=== PATIENT | male | born 1945 | race Caucasian/White ===

== ENCOUNTER → 2016-09-15 | Outpatient (CLI) | payer MEDICARE ==
--- NOTE | 2016-09-15 11:06 | CT ---
EXAMINATION TYPE: CT chest wo con DATE OF EXAM: 09/15/2016 9:38 AM COMPARISON: 03/21/2016 HISTORY: 71-year-old male follow-up pulmonary nodule TECHNIQUE: Contiguous axial scanning of the chest without IV contrast. Coronal and sagittal reconstru ctions performed. CT DLP: 362.6 mGycm Automated exposure control for dose reduction was used. FINDINGS: Heart is normal size without pericardial effusion. Coronary vessel calcifications are present and are a marker for coronary artery disease. Ascending aorta remains ectatic at 3.6 cm with mild atherosclerotic arch calcifications and bovine co nfiguration to the aortic arch. No thoracic lymphadenopathy. Mild bilateral gynecomastia again seen. Evaluation of the lungs shows shows a stable 3 mm right upper lobe pulmonary nodule axial image 20 A 5 mm pulmonary nodule right upper lobe axial image 19 not clearly seen previously. Redemonstrated bilobed pulmonary nodule within the left lower lobe, axial image 38 and coronal image 63. This measures 1.1 cm craniocaudal and 0.8 cm wide versus 1.0 x 0.7 cm dating back to 09/21/2015. No consolidation or pleural effusion. Visualized upper abdomen shows postsurgical changes at the GE junction suspected to relate to Nayeli fundoplication which appears new in the interval. Right kidney appears absent. Moderate stool. Bones: Endplate spondylosis especially at the thoracolumbar junction. No osseous destructive process. IMPRESSION: 1. A BILOBED LEFT LOWER LOBE PULMONARY NODULE MEASURES 1.1 X 0.8 CM VERSUS 1.0 X 0.7 CM DATING BACK T O 09/21/2015. THIS IS NOT FELT TO BE A SIGNIFICANT INCREASE IN SIZE. CONTINUED FOLLOW-UP IS RECOMMENDE D TO DEMONSTRATE 2 YEARS OF STABILITY WHICH WOULD SUPPORT A BENIGN ETIOLOGY. 2. A 5 MM RIGHT UPPER LOBE PULMONARY NODULE AXIAL IMAGE 19 NOT SEEN PREVIOUSLY. THIS CAN ALSO BE REAS SESSED ON THE FOLLOW-UP.
== END | disposition home or self-care (01) ==
LOC: RADCTMAIN 09:20
PROVIDERS: ATTEND Internal Medicine Sleep Medicine
DX: R91.1 Solitary pulmonary nodule (principal)
CPT/HCPCS: 71250

== ENCOUNTER → 2017-03-15 | Outpatient (CLI) | payer MEDICARE ==
--- NOTE | 2017-03-15 11:17 | CT ---
EXAMINATION TYPE: CT chest wo con DATE OF EXAM: 03/15/2017 COMPARISON: 09/15/2016 and 05/04/2015 HISTORY: 72-year-old male solitary pulmonary nodule TECHNIQUE: Contiguous axial scanning of the chest without IV contrast. Coronal and sagittal reconstru ctions performed. CT DLP: 489.70 mGycm Automated exposure control for dose reduction was used. FINDINGS: The heart is normal size without pericardial effusion. Coronary vessel calcifications are present in remarkable for coronary artery disease. Ectasia of the ascending aorta at 3.8 cm. There is mild atherosclerotic arch calcification with bovin e configuration to the aortic arch. No thoracic lymphadenopathy by CT size criteria. Trace bilateral gynecomastia is demonstrated. Patient's bilobed left lower lobe pulmonary nodule is measured on coronal series, image 64. It measur es 1.2 x 0.7 cm versus 1.1 x 0.7 cm on 09/15/2016 and 1.0 x 0.7 cm on 05/04/2015. No consolidation or pleural effusion. Some surgical changes at the GE junction likely Naylei fundoplication. Right kidney appears absent. Bones: Endplate spondylosis mid to lower thoracic spine. No osseous destructive process. IMPRESSION: BILOBED LEFT LOWER LOBE PULMONARY NODULE IS RELATIVELY STABLE AT 1.2 CM (CORONAL IMAGE 64). THIS TEE URED 1.1 CM ON 09/15/2016 AND 1.0 CM ON 05/04/2015. GIVEN POSSIBLE MINIMAL INCREASE IN SIZE, AN ADDITIO NAL ONE-YEAR FOLLOW-UP CAN BE PERFORMED.
== END | disposition home or self-care (01) ==
LOC: RADCTMAIN 09:34
PROVIDERS: ATTEND Internal Medicine Sleep Medicine
DX: R91.1 Solitary pulmonary nodule (principal)
CPT/HCPCS: 71250

== ENCOUNTER → 2018-03-19 | Outpatient (CLI) | payer MEDICARE ==
--- NOTE | 2018-03-19 10:24 | CT ---
EXAMINATION TYPE: CT chest wo con DATE OF EXAM: 03/19/2018 COMPARISON: 03/15/2017 HISTORY: Pulmonary nodule CT DLP: 520 mGycm. Automated Exposure Control for Dose Reduction was Utilized. TECHNIQUE: CT scan of the thorax is performed without IV contrast. FINDINGS: LUNGS: There is a stable 1.2 x 0.7 cm left lower lobe pulmonary nodule. No consolidation or pleural e ffusion. No pneumothorax.. There is no pleural effusion or pneumothorax seen. The tracheobronchial tree is patent. Basilar bronchiectasis noted. There also is a stable 3 mm right upper lobe pulmonary nodule on image 19. MEDIASTINUM: Lack of IV contrast is noted to limit evaluation for mediastinal and especially hilar ad enopathy. There are no definitive greater than 1 cm hilar or mediastinal lymph nodes. No cardiomega ly or pericardial effusion is seen. Ectasia of the aorta measuring a maximal dimension of 3.8 cm note d with mild atherosclerotic changes. Suggestion of a bovine configuration to the aortic arch. Coronar y artery calcification noted. OTHER: Degenerative change of the spine noted. Postsurgical change in the region of the GE junction. Right kidney not seen. Small hiatal hernia suspected. IMPRESSION: 1. Stable 1.2 cm left lower lobe pulmonary nodule. 2. Stable 0.3 cm right upper lobe pulmonary nodule.
== END | disposition home or self-care (01) ==
LOC: RADCTMAIN 09:28
PROVIDERS: ATTEND Internal Medicine Sleep Medicine
DX: R91.8 Other nonspecific abnormal finding of lung field (principal)
CPT/HCPCS: 71250

== ENCOUNTER → 2018-03-28 | Outpatient (CLI) | payer MEDICARE ==
[2018-03-28 18:08] LABS: HCT 38.7 % (39.0-53.0); HGB 13.4 gm/dL (13.0-17.5); MCH 33.9 pg (25.0-35.0); MCHC 34.7 g/dL (31.0-37.0); MCV 97.8 fL (80.0-100.0); Mean Platelet Volume 7.1; Platelet Count 212 k/uL (150-450); RBC 3.95 m/uL (4.30-5.90); RDW 13.1 % (11.5-15.5); WBC 9.1 k/uL (3.8-10.6)
[2018-03-28 18:24] LABS: Anion Gap 8 mmol/L; Blood Urea Nitrogen 17 mg/dL (9-20); Carbon Dioxide 27 mmol/L (22-30); Chloride 105 mmol/L (98-107); Potassium 4.6 mmol/L (3.5-5.1); Sodium 140 mmol/L (137-145)
== END | disposition home or self-care (01) ==
LOC: LABPAT 16:27
PROVIDERS: ATTEND Internal Medicine Interventional Cardiology
DX: Z01.812 Encounter for preprocedural laboratory examination (principal); I10 Essential (primary) hypertension; I35.1 Nonrheumatic aortic (valve) insufficiency; R94.39 Abnormal result of other cardiovascular function study
CPT/HCPCS: 36415; 80051; 82565; 84520; 85027

== ENCOUNTER 2018-04-03 09:36 | Emergency (ER) | payer MEDICARE ==
[2018-04-03 09:42] VITALS: RESP 18
[2018-04-03] MEDS ORDERED: SODIUM CHLORIDE 0.9% 500 ML IV ONE (10:04)
--- NOTE | 2018-04-03 10:09 | ED ---
General Adult HPI - General Chief complaint: Altered Mental Status Stated complaint: confusion Time Seen by Provider: 04/03/18 09:40 Source: patient, RN notes reviewed Mode of arrival: wheelchair Limitations: no limitations - History of Present Illness Initial comments: This is a 73-year-old male who presents emergency Department because he woke up this morning and had a diaphoretic episode and then he went to stand up he felt weak and a little off balance at that time. Patient took his blood sugar was 34. Patient told his he didn't feel like he was thinking straight though he was alert and oriented 3 at that time. Patient took a piece of toast with jimmy blood or an [address] On arrival patient's blood sugar was 84. Patient denies any headache patient denies any numbness or weakness. Patient denied any near syncopal episode. Patient denies any chest pain palpitations difficulty breathing or shortness of breath. Patient had abdominal pain patient denies nausea vomiting diarrhea. Patient denied any recent fever chills or cough. Patient states currently he feels almost at his baseline. - Related Data Home Medications Medication Instructions Recorded Confirmed Lisinopril [Zestril] 10 mg PO DAILY 04/24/15 04/03/18 Multivitamin [Men's Multi-Vitamin] 1 tab PO DAILY 04/24/15 04/03/18 Repaglinide [Prandin] 1 mg PO BID 04/24/15 04/03/18 Rosuvastatin Calcium [Crestor] 5 mg PO MOWEFR 04/24/15 04/03/18 Vitamin B Complex 1 cap PO DAILY 04/24/15 04/03/18 metFORMIN HCL 1,000 mg PO BID 04/24/15 04/03/18 Insulin Glargine,Hum.rec.anlog 54 units SQ QAM 12/07/15 04/03/18 [Robin Blanton] Latanoprost Ophth [Xalatan 0.005%] 1 drops RIGHT EYE HS 05/03/16 04/03/18 Aspirin EC [Ecotrin Low Dose] 81 mg PO DAILY 04/03/18 04/03/18 Omeprazole 20 mg PO DAILY 04/03/18 04/03/18 Testosterone [Androgel 1.62% Gel 1 pump TOPICAL HS 10/02/18 10/02/18 Pump] Allergies Allergy/AdvReac Type Severity Reaction Status Date / Time amoxicillin AdvReac Diarrhea Verified 04/03/18 10:07 Review of Systems ROS Statement: Those systems with pertinent positive or pertinent negative responses have been documented in the HPI. ROS Other: All systems not noted in ROS Statement are negative. Past Medical History Past Medical History: Cancer, Diabetes Mellitus, Eye Disorder, GERD/Reflux, Hyperlipidemia, Hypertension Additional Past Medical History / Comment(s): born w/one kidney, back pain after eating, had non-Hodgkin's lymphoma 10 yrs. ago-tx. w/chemo & radiation, reports lung history of bronchitis and 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 to irritating chemicals, PRE GLAUCOMA RT EYE History of Any Multi-Drug Resistant Organisms: None Reported Past Surgical History: Hernia Repair Additional Past Surgical History / Comment(s): lymph node removed,surg for undescended testicles as teen, colonoscopies, GABI FLUNDALPLICATION, EGD Past Anesthesia/Blood Transfusion Reactions: Motion Sickness Past Psychological History: No Psychological Hx Reported Smoking Status: Former smoker Past Alcohol Use History: Occasional Past Drug Use History: None Reported - Past Family History Father Family Medical History: Diabetes Mellitus, Hypertension Additional Family Medical History / Comment(s): abdominal Aneurysm Brother(s) Family Medical History: CVA/TIA Mother Family Medical History: No Reported History General Exam - General Exam Comments Initial Comments: GENERAL: Patient is well-developed and well-nourished. Patient is nontoxic and well- hydrated and is in no acute distress. ENT: Neck is soft and supple. No significant lymphadenopathy is noted. Oropharynx is clear. Moist mucous membranes. Neck has full range of motion without eliciting any pain. EYES: The sclera were anicteric and conjunctiva were pink and moist. Extraocular movements were intact and pupils were equal round and reactive to light. Eyelids were unremarkable. PULMONARY: Unlabored respirations. Good breath sounds bilaterally. No audible rales rhonchi or wheezing was noted. CARDIOVASCULAR: There is a regular rate and rhythm without any murmurs gallops or rubs. ABDOMEN: Soft and nontender with normal bowel sounds. No palpable organomegaly was noted. There is no palpable pulsatile mass. SKIN: Skin is clear with no lesions or rashes and otherwise unremarkable. NEUROLOGIC: Patient is alert and oriented x3. Cranial nerves II through XII are grossly intact. Motor and sensory are also intact. Normal speech, volume and content. Symmetrical smile. MUSCULOSKELETAL: Normal extremities with adequate strength and full range of motion. No lower extremity swelling or edema. No calf tenderness. LYMPHATICS: No significant lymphadenopathy is noted PSYCHIATRIC: Normal psychiatric evaluation. Normal interpersonal interactions appears functionally intact in deals appropriately with others. No signs of depression. No signs of anxiety. Limitations: no limitations Course Vital Signs 04/03/18 04/03/18 04/03/18 09:37 10:06 10:26 Temperature 98.7 F Pulse Rate 69 68 Pulse Rate [ 74 Bluing Oven Tender ] Respiratory 18 18 Rate Blood Pressure 155/73 134/63 O2 Sat by Pulse 98 96 Oximetry 04/03/18 11:49 Temperature Pulse Rate 60 Pulse Rate [ Bluing Oven Tender ] Respiratory 18 Rate Blood Pressure 129/64 O2 Sat by Pulse 97 Oximetry Medical Decision Making - Medical Decision Making EKG shows normal sinus rhythm at 69 bpm CA interval is 204 QRS is 90 QT intervals 434 QTC is 465. Patient's EKG shows no ST segment elevation or depression or T-wave abnormalities noted Patient stated he has increased his diabetes medicine twice in the last 5 weeks last time being a couple of weeks ago. Patient's chest x-ray showed no acute abnormality. Patient ate well in the emergency department and when I went back into the room he was at his baseline according to himself and his . - Lab Data Result diagrams: 04/03/18 10:05 04/03/18 10:05 Lab Results 04/03/18 04/03/18 04/03/18 Range/Units 09:47 10:05 10:05 WBC 8.2 (3.8-10.6) k/uL RBC 4.58 (4.30-5.90) m/uL Hgb 14.9 (13.0-17.5) gm/dL Hct 42.7 (39.0-53.0) % MCV 93.2 (80.0-100.0) fL MCH 32.6 (25.0-35.0) pg MCHC 35.0 (31.0-37.0) g/dL RDW 12.7 (11.5-15.5) % Plt Count 209 (150-450) k/uL Neutrophils % 51 % Lymphocytes % 34 % Monocytes % 8 % Eosinophils % 4 % Basophils % 1 % Neutrophils # 4.2 (1.3-7.7) k/uL Lymphocytes # 2.8 (1.0-4.8) k/uL Monocytes # 0.7 (0-1.0) k/uL Eosinophils # 0.3 (0-0.7) k/uL Basophils # 0.1 (0-0.2) k/uL PT (9.0-12.0) sec INR (<1.2) APTT (22.0-30.0) sec Sodium (137-145) mmol/L Potassium (3.5-5.1) mmol/L Chloride (98-107) mmol/L Carbon Dioxide (22-30) mmol/L Anion Gap mmol/L BUN (9-20) mg/dL Creatinine (0.66-1.25) mg/dL Est GFR (CKD-EPI)AfAm (>60 ml/min/1.73 sqM) Est GFR (CKD-EPI)NonAf (>60 ml/min/1.73 sqM) Glucose (74-99) mg/dL POC Glucose (mg/dL) 84 (75-99) mg/dL POC Glu Boat Washer ID Joyce Colon Calcium (8.4-10.2) mg/dL Total Bilirubin (0.2-1.3) mg/dL AST (17-59) U/L ALT (21-72) U/L Alkaline Phosphatase (38-126) U/L Total Creatine Kinase 69 (55-170) U/L CK-MB (CK-2) 2.4 (0.0-2.4) ng/mL CK-MB (CK-2) Rel Index 3.5 Troponin I <0.012 (0.000-0.034) ng/mL Total Protein (6.3-8.2) g/dL Albumin (3.5-5.0) g/dL Urine Color Urine Appearance (Clear) Urine pH (5.0-8.0) Ur Specific Parsons (1.001-1.035) Urine Protein (Negative) Urine Glucose (UA) (Negative) Urine Ketones (Negative) Urine Blood (Negative) Urine Nitrite (Negative) Urine Bilirubin (Negative) Urine Urobilinogen (<2.0) mg/dL Ur Leukocyte Esterase (Negative) Urine WBC (0-5) /hpf Urine Mucus (None) /hpf 10/02/18 10/02/18 10/02/18 Range/Units 10:05 10:05 10:14 WBC (3.8-10.6) k/uL RBC (4.30-5.90) m/uL Hgb (13.0-17.5) gm/dL Hct (39.0-53.0) % MCV (80.0-100.0) fL MCH (25.0-35.0) pg MCHC (31.0-37.0) g/dL RDW (11.5-15.5) % Plt Count (150-450) k/uL Neutrophils % % Lymphocytes % % Monocytes % % Eosinophils % % Basophils % % Neutrophils # (1.3-7.7) k/uL Lymphocytes # (1.0-4.8) k/uL Monocytes # (0-1.0) k/uL Eosinophils # (0-0.7) k/uL Basophils # (0-0.2) k/uL PT 9.7 (9.0-12.0) sec INR 1.0 (<1.2) APTT 22.1 (22.0-30.0) sec Sodium 143 (137-145) mmol/L Potassium 3.7 (3.5-5.1) mmol/L Chloride 111 H (98-107) mmol/L Carbon Dioxide 22 (22-30) mmol/L Anion Gap 10 mmol/L BUN 20 (9-20) mg/dL Creatinine 0.77 (0.66-1.25) mg/dL Est GFR (CKD-EPI)AfAm >90 (>60 ml/min/1.73 sqM) Est GFR (CKD-EPI)NonAf >90 (>60 ml/min/1.73 sqM) Glucose 68 L (74-99) mg/dL POC Glucose (mg/dL) 82 (75-99) mg/dL POC Glu Boat Washer ID Ivelisse Burrows Calcium 9.8 (8.4-10.2) mg/dL Total Bilirubin 0.7 (0.2-1.3) mg/dL AST 25 (17-59) U/L ALT 31 (21-72) U/L Alkaline Phosphatase 36 L (38-126) U/L Total Creatine Kinase (55-170) U/L CK-MB (CK-2) (0.0-2.4) ng/mL CK-MB (CK-2) Rel Index Troponin I (0.000-0.034) ng/mL Total Protein 7.5 (6.3-8.2) g/dL Albumin 4.6 (3.5-5.0) g/dL Urine Color Urine Appearance (Clear) Urine pH (5.0-8.0) Ur Specific Parsons (1.001-1.035) Urine Protein (Negative) Urine Glucose (UA) (Negative) Urine Ketones (Negative) Urine Blood (Negative) Urine Nitrite (Negative) Urine Bilirubin (Negative) Urine Urobilinogen (<2.0) mg/dL Ur Leukocyte Esterase (Negative) Urine WBC (0-5) /hpf Urine Mucus (None) /hpf 04/03/18 04/03/18 Range/Units 11:28 11:55 WBC (3.8-10.6) k/uL RBC (4.30-5.90) m/uL Hgb (13.0-17.5) gm/dL Hct (39.0-53.0) % MCV (80.0-100.0) fL MCH (25.0-35.0) pg MCHC (31.0-37.0) g/dL RDW (11.5-15.5) % Plt Count (150-450) k/uL Neutrophils % % Lymphocytes % % Monocytes % % Eosinophils % % Basophils % % Neutrophils # (1.3-7.7) k/uL Lymphocytes # (1.0-4.8) k/uL Monocytes # (0-1.0) k/uL Eosinophils # (0-0.7) k/uL Basophils # (0-0.2) k/uL PT (9.0-12.0) sec INR (<1.2) APTT (22.0-30.0) sec Sodium (137-145) mmol/L Potassium (3.5-5.1) mmol/L Chloride (98-107) mmol/L Carbon Dioxide (22-30) mmol/L Anion Gap mmol/L BUN (9-20) mg/dL Creatinine (0.66-1.25) mg/dL Est GFR (CKD-EPI)AfAm (>60 ml/min/1.73 sqM) Est GFR (CKD-EPI)NonAf (>60 ml/min/1.73 sqM) Glucose (74-99) mg/dL POC Glucose (mg/dL) 96 (75-99) mg/dL POC Glu Boat Washer Ivelisse Pillai Calcium (8.4-10.2) mg/dL Total Bilirubin (0.2-1.3) mg/dL AST (17-59) U/L ALT (21-72) U/L Alkaline Phosphatase (38-126) U/L Total Creatine Kinase (55-170) U/L CK-MB (CK-2) (0.0-2.4) ng/mL CK-MB (CK-2) Rel Index Troponin I (0.000-0.034) ng/mL Total Protein (6.3-8.2) g/dL Albumin (3.5-5.0) g/dL Urine Color Yellow Urine Appearance Clear (Clear) Urine pH 5.5 (5.0-8.0) Ur Specific Parsons 1.013 (1.001-1.035) Urine Protein 1+ H (Negative) Urine Glucose (UA) Trace H (Negative) Urine Ketones Negative (Negative) Urine Blood Negative (Negative) Urine Nitrite Negative (Negative) Urine Bilirubin Negative (Negative) Urine Urobilinogen <2.0 (<2.0) mg/dL Ur Leukocyte Esterase Negative (Negative) Urine WBC <1 (0-5) /hpf Urine Mucus Rare H (None) /hpf Disposition Clinical Impression: Hypoglycemia Disposition: HOME SELF-CARE Condition: Good Instructions: Hypoglycemia in a Person with Diabetes (ED) Is patient prescribed a controlled substance at d/c from ED?: No Referrals: Edwardo Feldman DO [Primary Care Provider] - 1-2 days Time of Disposition: 12:46
[2018-04-03 10:13] LABS: Glucose,Whole Blood 84 mg/dL (75-99)
[2018-04-03 10:28] LABS: ALT 31 U/L (21-72); AST 25 U/L (17-59); Albumin 4.6 g/dL (3.5-5.0); Alkaline Phosphatase 36 U/L (38-126); Anion Gap 10 mmol/L; Blood Urea Nitrogen 20 mg/dL (9-20); Calcium 9.8 mg/dL (8.4-10.2); Carbon Dioxide 22 mmol/L (22-30); Chloride 111 mmol/L (98-107); Glucose 68 mg/dL (74-99); Potassium 3.7 mmol/L (3.5-5.1); Sodium 143 mmol/L (137-145); Total Bilirubin 0.7 mg/dL (0.2-1.3); Total Protein 7.5 g/dL (6.3-8.2)
[2018-04-03 10:31] LABS: Glucose,Whole Blood 82 mg/dL (75-99)
[2018-04-03 10:31] LABS: Basophils # (A) 0.1 k/uL (0-0.2); Basophils % (A) 1 %; Eosinophils # (A) 0.3 k/uL (0-0.7); Eosinophils % (A) 4 %; HCT 42.7 % (39.0-53.0); HGB 14.9 gm/dL (13.0-17.5); Lymphocytes # (A) 2.8 k/uL (1.0-4.8); Lymphocytes % (A) 34 %; MCH 32.6 pg (25.0-35.0); MCV 93.2 fL (80.0-100.0); Mean Platelet Volume 6.9; Monocytes # (A) 0.7 k/uL (0-1.0); Monocytes % (A) 8 %; Neutrophils # (A) 4.2 k/uL (1.3-7.7); Neutrophils % (A) 51 %; Platelet Count 209 k/uL (150-450); RBC 4.58 m/uL (4.30-5.90); RDW 12.7 % (11.5-15.5); WBC 8.2 k/uL (3.8-10.6)
[2018-04-03 10:34] LABS: Partial Thromboplastin Time 22.1 sec (22.0-30.0); Prothrombin Time 9.7 sec (9.0-12.0)
--- NOTE | 2018-04-03 10:42 | XR ---
EXAMINATION TYPE: XR chest 2V DATE OF EXAM: 04/03/2018 COMPARISON: 03/19/2018, 12/31/2015 TECHNIQUE: PA and lateral views submitted. HISTORY: Altered mental status FINDINGS: The lungs are clear and there is no pneumothorax, pleural effusion, or focal pneumonia. Atheroscler otic change aorta and biapical pleural thickening. Arthropathy of the shoulders. Hypertrophic and deg enerative change of the spine. IMPRESSION: 1. No acute process.
[2018-04-03 10:43] LABS: Creatine Kinase 69 U/L (55-170)
[2018-04-03 10:55] LABS: Creatine Kinase MB 2.4 ng/mL (0.0-2.4); Troponin I <0.012 ng/mL (0.000-0.034)
[2018-04-03 11:31] LABS: Glucose,Whole Blood 96 mg/dL (75-99)
[2018-04-03 11:51] VITALS: PULSE 60
[2018-04-03 12:31] LABS: Appearance,Urine Clear (Clear); Bilirubin,Urine Negative (Negative); Blood,Urine Negative (Negative); Color,Urine Yellow; Glucose,Urine (UA) Trace (Negative); Ketones,Urine Negative (Negative); Leukocyte Esterase,Urine Negative (Negative); Mucus,Urine Rare /hpf; Nitrite,Urine Negative (Negative); PH, Urine 5.5 (5.0-8.0); Protein,Urine 1+ (Negative); Specific Gravity,Urine 1.013 (1.001-1.035); Urobilinogen,Urine <2.0 mg/dL (<2.0); WBC,Urine <1 /hpf (0-5)
[2018-04-03 13:28] VITALS: BP 137/65; TEMP 97.6
== END 2018-04-03 13:25 | disposition home or self-care (01) ==
LOC: EC 09:36
DX: E11.649 Type 2 diabetes mellitus with hypoglycemia without coma (principal); K21.9 Gastro-esophageal reflux disease without esophagitis; E78.5 Hyperlipidemia, unspecified; I10 Essential (primary) hypertension; H40.9 Unspecified glaucoma; Z83.3 Family history of diabetes mellitus; Z85.72 Personal history of non-Hodgkin lymphomas; Z92.21 Personal history of antineoplastic chemotherapy; Z87.891 Personal history of nicotine dependence; Z79.4 Long term (current) use of insulin; Z79.82 Long term (current) use of aspirin; Z79.890 Hormone replacement therapy; Z79.899 Other long term (current) drug therapy; Z88.0 Allergy status to penicillin
CPT/HCPCS: 36415; 71046; 80053; 81001; 82550; 82553; 84484; 85025; 85610; 85730; 93005; 96360; 99285

== ENCOUNTER 2018-04-11 06:19 | Day surgery (SDC) | payer MEDICARE ==
[2018-04-04 13:33] VITALS: BMI 27.8
[~2018-04-11 06:19] MED LIST: ALPRAZolam 0.25 MG TAB PO PRN; ALPRAZolam 0.5 MG TAB PO PRN; ASPIRIN 325 MG TAB PO STA; ATORVASTATIN 80 MG TAB PO STA; NITROGLYCERIN SL TABS 0.4 MG TAB SUBLINGUAL PRN; SODIUM CHLORIDE 0.9% 1,000 ML in EMPTY BAG 1 BAG IV ONE
[2018-04-11 06:57] LABS: Glucose,Whole Blood 172 mg/dL (75-99)
[2018-04-11] MEDS ORDERED: fentaNYL (PF) 50 MCG/ML 2 ML AMP IV ONE (07:40)
[2018-04-11] MEDS ORDERED: diphenhydrAMINE 50 MG/ML 1 ML VIAL IVP ONE (07:40)
[2018-04-11] MEDS ORDERED: LIDOCAINE 1% INJ 10MG/ML (20 ML MDV) SQ ONE (07:45)
[2018-04-11] MEDS ORDERED: VERAPAMIL SYRINGE (5 MG/10 ML) INTRAARTER ONE (07:46)
[2018-04-11] MEDS ORDERED: HEPARIN SODIUM 1,000 UN/ML (10ML VL) IV ONE (07:55)
[2018-04-11] MEDS ORDERED: IOPAMIDOL-370 50ML BTL INJ ONE (07:57)
[2018-04-11] MEDS ORDERED: IOPAMIDOL-370 125ML BTL INJ ONE (07:57)
[2018-04-11] MEDS ORDERED: RX INFO: IV CONTRAST WAS GIVEN 1 EACH MISC MISCELLANE PRN (08:07)
[2018-04-11] MEDS ORDERED: SODIUM CHLORIDE 0.9% 1,000 ML IV SCH (08:15)
[2018-04-11 08:41] VITALS: RESP 16; TEMP 97.7
[2018-04-11] MEDS ORDERED: NON-FORMULARY DRUG (Vitamin B Complex [Vitamin B Complex] 1 CAP) PO SCH (09:00)
[2018-04-11] MEDS ORDERED: LISINOPRIL 10 MG TAB PO SCH (09:00)
--- NOTE | 2018-04-11 10:28 | CC ---
CARDIAC CATHETERIZATION REPORT Mr. Eastman is a 73-year-old male with known history of hypertension, hyperlipidemia, diabetes mellitus, who has been complaining of progressive dyspnea on exertion. He had an abnormal myocardial perfusion imaging and in view of that, recommendation regarding cardiac catheterization. The procedures, risks and complications were discussed with the patient who is in full understanding and agreement. PROCEDURE: Patient was brought to the laborer brush clearing in a fasting semi-sedated state after receiving fentanyl and Benadryl and achieving moderate conscious sedated state. Using Xylocaine anesthesia and Seldinger technique, a 6-Iranian sheath was introduced in the right radial artery. Selective right and left angiography was performed using 5-Iranian 3.5 bend right and left Nelson catheter, multiple views of the coronary artery including hemiaxial views obtained. Following that, a 5-Iranian tight pigtail catheter was introduced in the left ventricle and a 30 degree LUNDBERG view of the left ventricle was obtained. Following that, catheter and sheath were removed. Hemostasis was obtained with deployment of a TR band. There was no immediate complication. Patient is returned to his room in stable condition. FINDINGS: LEFT MAIN: This is a short-size vessel bifurcating into left circumflex, left anterior descending artery. The left main coronary artery has no evidence of high-grade stenosis. LEFT ANTERIOR DESCENDING ARTERY: This is a large-sized vessel, reaching toward the apex with a wraparound apex segment, tapers down in the distal third, giving rise to a diagonal branch in the proximal segment. The left anterior descending artery has mild intimal disease proximally of 20%. The rest of the vessel has no high-grade stenosis. LEFT CIRCUMFLEX: This is a nondominant large vessel giving rise to two obtuse marginal branches. The first obtuse marginal branch proximally has diffuse intimal disease involving the ostium and extending to the proximal area with area of stenosis up to 60%. The rest of the vessel has intimal disease of mild degree without any evidence of high-grade stenosis. RIGHT CORONARY ARTERY: This is a large dominant vessel, bifurcating distally into PDA, posterolateral segment and branches. The right coronary artery proximally has a 20% plaque. The rest of the vessel has no high-grade stenosis. LEFT VENTRICULOGRAM: Left ventriculogram was performed in 30 degree LUNDBERG view and revealed normal left ventricular size and systolic function, ejection fraction is 60%. There was no significant mitral regurgitation. HEMODYNAMICS: There was no gradient across the aortic valve. The left ventricle end- diastolic pressure left ventricle end-diastolic pressure was at 28-30 mmHg. CONCLUSION: 1. Moderate disease in the first obtuse marginal branch with mild disease in the LAD and the right coronary artery. 2. Normal course size and systolic function. 3. Calcified coronary arteries. 4. Elevated left ventricular end-diastolic pressure. RECOMMENDATION: In view of finding anatomy, I recommend continue medical therapy with aggressive coronary risk modifications being initiated. Those findings and recommendation were discussed with the patient and his family who are in full understanding and agreement. Duration of procedure is 18 minutes. MMODL / IJN: [id number] /
[2018-04-11] MEDS ORDERED: INSULIN DETEMIR 100 UNIT/ML 10 ML VIAL SQ SCH (12:00)
[2018-04-11] MEDS ORDERED: MULTIVITAMINS, THERA 1 EACH TAB PO SCH (12:00)
[2018-04-11 12:23] VITALS: PULSE 56
[2018-04-11 12:24] VITALS: BP 117/64
[2018-04-11 13:16] LABS: Glucose,Whole Blood 238 mg/dL (75-99)
[2018-04-11] MEDS ORDERED: REPAGLINIDE 1 MG TAB PO SCH (17:30)
[2018-04-11] MEDS ORDERED: PUMP TOPICAL SCH (21:00)
[2018-04-11] MEDS ORDERED: TESTOSTERONE TOPICAL SCH (21:00)
[2018-04-12] MEDS ORDERED: ASPIRIN 81 MG PO SCH (09:00)
[2018-04-13] MEDS ORDERED: ATORVASTATIN 10 MG TAB PO SCH (09:00)
== END 2018-04-11 14:55 | disposition home or self-care (01) ==
LOC: CATHCVL 06:19 → 3OBS 08:00 → CATHCVL 14:55
PROVIDERS: ATTEND Internal Medicine Interventional Cardiology
DX: I25.10 Atherosclerotic heart disease of native coronary artery without angina pectoris (principal); I25.84 Coronary atherosclerosis due to calcified coronary lesion; I10 Essential (primary) hypertension; E78.2 Mixed hyperlipidemia; E78.00 Pure hypercholesterolemia, unspecified; E11.9 Type 2 diabetes mellitus without complications; I35.1 Nonrheumatic aortic (valve) insufficiency; Z79.82 Long term (current) use of aspirin; Z79.4 Long term (current) use of insulin; Z79.899 Other long term (current) drug therapy
CPT/HCPCS: 93458; C1894; C1769; J1200; J2001; J3010; J1644; Q9967 ×2

== ENCOUNTER → 2018-04-19 | Outpatient (CLI) | payer MEDICARE ==
[2018-04-19 09:34] LABS: ALT 30 U/L (21-72); AST 23 U/L (17-59); Albumin 4.5 g/dL (3.5-5.0); Alkaline Phosphatase 27 U/L (38-126); Anion Gap 12 mmol/L; Blood Urea Nitrogen 19 mg/dL (9-20); Calcium 9.8 mg/dL (8.4-10.2); Carbon Dioxide 23 mmol/L (22-30); Chloride 106 mmol/L (98-107); Cholesterol 185 mg/dL (<200); Glucose 189 mg/dL (74-99); HDL Cholesterol 46 mg/dL (40-60); LDL Cholesterol,Calculated 113 mg/dL (0-99); Potassium 4.4 mmol/L (3.5-5.1); Sodium 141 mmol/L (137-145); Total Protein 7.2 g/dL (6.3-8.2); Triglycerides 130 mg/dL (<150)
[2018-04-19 17:57] LABS: Hemoglobin A1C 6.8 % (4.0-6.0)
== END | disposition home or self-care (01) ==
LOC: LABWHC1 08:49
PROVIDERS: ATTEND Internal Medicine Endocrinology, Diabetes & Metabolism
DX: E11.65 Type 2 diabetes mellitus with hyperglycemia (principal)
CPT/HCPCS: 36415; 80053; 80061; 82043; 82570; 83036

== ENCOUNTER → 2018-10-04 | Outpatient (CLI) | payer MEDICARE | END | disposition home or self-care (01) | LOC: LABWHC1 16:48 | PROVIDERS: ATTEND Internal Medicine Interventional Cardiology | DX: R06.00 Dyspnea, unspecified (principal) | CPT/HCPCS: 36415; 83880 ==

== ENCOUNTER → 2018-10-24 | Day surgery (SDC) | payer MEDICARE ==
[2018-10-19 11:30] VITALS: BMI 27.8
[~2018-10-24] MED LIST changes: -ALPRAZolam 0.25 MG TAB PO PRN; -ALPRAZolam 0.5 MG TAB PO PRN; -ASPIRIN 325 MG TAB PO STA; -ATORVASTATIN 80 MG TAB PO STA; +INSULIN ASPART (NovoLOG) 100 UNIT/ML VIAL SQ SCH; +INSULIN GLARGINE HUM REC ANLOG 56 UNIT SQ SCH; +LISINOPRIL 10 MG TAB PO SCH; +MIDAZOLAM (PF) 2 MG/2 ML VIAL IVP ONE; -NITROGLYCERIN SL TABS 0.4 MG TAB SUBLINGUAL PRN; +NON-FORMULARY DRUG (Aspirin Ec 81 MG) PO SCH; +NON-FORMULARY DRUG (Cholecalciferol (Vitamin D3) [Vitamin D3] 2,000 UNIT) PO SCH; +NON-FORMULARY DRUG (Metformin Hcl [Metformin Hcl] 1,000 MG) PO SCH; +NON-FORMULARY DRUG (Multivitamin [Men's Multi-Vitamin] 1 TAB) PO SCH; +NON-FORMULARY DRUG (Vitamin B Complex [Vitamin B Complex] 1 CAP) PO SCH; +PUMP TOPICAL SCH; +REPAGLINIDE 1 MG TAB PO SCH; +ROSUVASTATIN CALCIUM 10 MG PO SCH; +SODIUM CHLORIDE 0.9% 1,000 ML IV SCH; -SODIUM CHLORIDE 0.9% 1,000 ML in EMPTY BAG 1 BAG IV ONE; +SODIUM CHLORIDE 0.9% 500 ML 500 ML IV ONE; +TESTOSTERONE TOPICAL SCH; +fentaNYL (PF) 50 MCG/ML 2 ML AMP ONE
[2018-10-24 06:40] VITALS: RESP 18; TEMP 98
[2018-10-24 06:42] LABS: Glucose,Whole Blood 223 mg/dL (75-99)
[2018-10-24] MEDS: BENZOCAINE SPRAY 1 CAN MUCOUS MEM ONE ×2 (07:22→07:28)
[2018-10-24] MEDS: fentaNYL (PF) 50 MCG/ML 2 ML AMP IVP ONE ×2 (07:28→07:29)
--- NOTE | 2018-10-24 08:11 | ECHOT ---
TRANSESOPHAGEAL ECHOCARDIOGRAM INDICATION: Evaluation of aortic valve. PROCEDURE: After explaining the procedure to the patient, its risks and the complications, his blood pressure, heart rate, O2 saturation was monitored. The throat was sprayed with Cetacaine. He received 2 mg intravenous Versed, 50 mcg intravenous fentanyl. The probe was introduced esophagus without difficulty. Images were obtained. Following that, the probe was removed. There was no immediate complication. FINDINGS: Left atrial size is normal. Left ventricular size and systolic function normal. The aortic valve is a tricuspid valve with normal opening. The descending thoracic aorta appears to be normal with the mitral valve, and tricuspid valve as well as pulmonic valve are normal. No pericardial effusion was noted. Contrast bubble study revealed no shunting across the interatrial septum. Doppler pulse wave and color Doppler obtained revealed moderate central aortic regurgitation with mild mitral and tricuspid regurgitation. There was no shunting by color Doppler study. CONCLUSION: 1. Normal left ventricular size and systolic function. 2. Normal appearance left atrial appendage. 3. Normal appearance of the aortic valve with moderate central aortic regurgitation and normal appearance of the ascending aorta. 4. Mild mitral and tricuspid regurgitation. 5. No shunting by color Doppler study. 6. No pericardial effusion. MMODL / IJN: [id number] /
[2018-10-24 09:14] VITALS: BP 123/69; PULSE 56
== END | disposition home or self-care (01) ==
LOC: CATHCVL 06:14
PROVIDERS: ATTEND Internal Medicine Interventional Cardiology
DX: I08.3 Combined rheumatic disorders of mitral, aortic and tricuspid valves (principal); I25.10 Atherosclerotic heart disease of native coronary artery without angina pectoris; E11.9 Type 2 diabetes mellitus without complications; I10 Essential (primary) hypertension; E78.2 Mixed hyperlipidemia; Z82.49 Family history of ischemic heart disease and other diseases of the circulatory system; Z79.82 Long term (current) use of aspirin; Z79.02 Long term (current) use of antithrombotics/antiplatelets; Z79.899 Other long term (current) drug therapy; Z79.4 Long term (current) use of insulin
CPT/HCPCS: 93312; 93320; 93325; J3010; J2250

== ENCOUNTER 2018-11-22 14:08 | Emergency (ER) | payer MEDICARE ==
[2018-11-22 14:12] VITALS: RESP 18
[2018-11-22] MEDS ORDERED: SODIUM CHLORIDE 0.9% 500 ML 500 ML IV STA (14:41)
[2018-11-22 15:12] LABS: Basophils % (A) 0 %; Eosinophils # (A) 0.3 k/uL (0-0.7); Eosinophils % (A) 4 %; HCT 37.4 % (39.0-53.0); HGB 13.6 gm/dL (13.0-17.5); Lymphocytes # (A) 2.8 k/uL (1.0-4.8); Lymphocytes % (A) 33 %; MCH 33.4 pg (25.0-35.0); MCHC 36.4 g/dL (31.0-37.0); MCV 91.5 fL (80.0-100.0); Monocytes # (A) 0.6 k/uL (0-1.0); Monocytes % (A) 7 %; Neutrophils # (A) 4.6 k/uL (1.3-7.7); Neutrophils % (A) 54 %; Platelet Count 214 k/uL (150-450); RBC 4.08 m/uL (4.30-5.90); RDW 12.5 % (11.5-15.5); WBC 8.5 k/uL (3.8-10.6)
[2018-11-22 15:20] LABS: ALT 30 U/L (21-72); AST 27 U/L (17-59); Albumin 4.5 g/dL (3.5-5.0); Alkaline Phosphatase 37 U/L (38-126); Anion Gap 9 mmol/L; Blood Urea Nitrogen 18 mg/dL (9-20); Carbon Dioxide 23 mmol/L (22-30); Chloride 105 mmol/L (98-107); Glucose 179 mg/dL (74-99); Potassium 4.3 mmol/L (3.5-5.1); Sodium 137 mmol/L (137-145); Total Bilirubin 0.6 mg/dL (0.2-1.3); Total Protein 6.9 g/dL (6.3-8.2)
[2018-11-22 15:22] LABS: INR 0.9 (<1.2); Partial Thromboplastin Time 23.9 sec (22.0-30.0)
--- NOTE | 2018-11-22 15:25 | CT ---
EXAMINATION TYPE: CT brain wo con DATE OF EXAM: 11/22/2018 COMPARISON: None INDICATION: Right leg numbness. DLP: 1141.4 mGycm, Automated exposure control for dose reduction was used. CONTRAST: None CT of the brain is performed utilizing 3 mm thick sections through the posterior fossa and 3 mm thick sections through the remaining calvarium. Study is performed within 24 hours of arrival to the hosp [facility]. No abnormal hyperdensity is present to suggest an acute intracranial hemorrhage. No mass lesion is evident. No acute infarcts are evident. Ventricles and sulci are appropriate for the patient age. Paranasal sinuses and mastoid air cells within the [id number] are clear. IMPRESSIONS: 1. No acute intracranial process.
--- NOTE | 2018-11-22 15:28 | CT ---
EXAMINATION TYPE: CT lumbar spine wo con DATE OF EXAM: 11/22/2018 COMPARISON: HISTORY: Right leg numbness. CT DLP: 913.7 mGycm CONTRAST: CT scan of the lumbar is performed , patient injected with mL of . TECHNIQUE: CT of the lumbar spine is performed on a spiral scan at 3 mm thick sections. Reconstructed images are performed in the coronal and sagittal planes. FINDINGS: At T11-T12: There is loss of disc height and vacuum disc phenomenon. Sclerosis of the infer ior endplate of T11. No spinal canal stenosis is present. T12-L1: No focal disc herniation or significant disc bulge is evident. No spinal canal stenosis or neural foraminal stenosis is present. L1-L2: No focal disc herniation or significant disc bulge is evident. No spinal canal stenosis or n eural foraminal stenosis is present L2-L3: Minimal disc bulge is anterior thecal sac contact. No spinal canal stenosis or neural foramina l stenosis present. L3-L4: Mild disc bulging is anterior thecal sac flattening. No AP spinal canal stenosis or neural for aminal stenosis is present. L4-L5: There may be a small left paracentral disc herniation L4-5 with mild anterior thecal sac conta ct. No spinal canal stenosis is present. The neural foramen are patent. L5-S1: No focal disc herniation or significant disc bulge is evident. No spinal canal stenosis or n eural foraminal stenosis is present Vertebral alignment appears normal. IMPRESSION: 1. Degenerative disc changes T11-12. 2. Mild disc bulging L2-3 L3-4. 3. Small left paracentral disc herniation with minimal anterior thecal sac compression at L4-5.
--- NOTE | 2018-11-22 15:43 | ED ---
General Adult HPI - General Chief complaint: Extremity Problem,Nontraumatic Stated complaint: R leg numbness Time Seen by Provider: 11/22/18 14:15 Source: patient, RN notes reviewed, old records reviewed Mode of arrival: ambulatory Limitations: no limitations - History of Present Illness Initial comments: 73-year-old male patient past medical history of hypertension, type 2 diabetes, lumbar back pain, hiatal and umbilical hernia repair presents to ED with paresthesias in the right lower extremity. Patient reports that paresthesias in his right lower extremity initially started approximately 3 months ago. Patient reports that he was in [place] at that time and presented to an ER, he states that they adjusted his blood pressure medication and the paresthesias resolved. Patient reports that yesterday night he began to explain his paresthesias in right lower extremity again. Patient states that he notices that they begin when he is at rest and they resolve while getting up and doing physical exertion. Patient denies any recent falls or trauma. Patient denies any altered mental status, facial droop, headaches, changes in vision. Patient d enies any saddle anesthesia, loss of bowel or bladder control. Denies any chest pain shortness of breath abdominal pain nausea vomiting or diarrhea. Systemic: Pt denies fatigue, myalgia, fever/chills, rash. Pt denies weakness, night sweats, weight loss. Neuro: Pt denies headache, visual disturbances, syncope or pre-syncope. HEENT: Pt denies ocular discharge or irritation, otalgia, rhinorrhea, p haryngitis or notable lymphadenopathy. Cardiopulmonary: Pt denies chest pain, SOB, heart palpitations, dyspnea on exertion. Abdominal/GI: Pt denies abdominal pain, n/v/d. : Pt denies dysuria, burning w/ urination, frequency/urgency. Denies new onset urinary or bowel incontinence. MSK: Pt denies myalgia, loss of strength or function in extremities. Neuro: Pt denies new onset weakness. - Related Data Home Medications Medication Instructions Recorded Confirmed Lisinopril [Zestril] 10 mg PO DAILY 04/24/15 10/24/18 Multivitamin [Men's Multi-Vitamin] 1 tab PO DAILY 04/24/15 10/24/18 Repaglinide [Prandin] 1 mg PO BID 04/24/15 10/24/18 Rosuvastatin Calcium [Crestor] 10 mg PO HS 04/24/15 10/24/18 Vitamin B Complex 1 cap PO DAILY 04/24/15 10/24/18 metFORMIN HCL 1,000 mg PO BID 04/24/15 10/24/18 Insulin Glargine,Hum.rec.anlog 56 units SQ QAM 12/07/15 10/24/18 [Toujeo Solostar] Aspirin EC [Ecotrin Low Dose] 81 mg PO DAILY 04/03/18 10/24/18 Testosterone [Androgel 1.62% Gel 1 pump TOPICAL Q2D 04/03/18 10/24/18 Pump] Cholecalciferol (Vitamin D3) 2,000 unit PO DAILY 10/19/18 10/24/18 [Vitamin D3] Allergies Allergy/AdvReac Type Severity Reaction Status Date / Time amoxicillin AdvReac Diarrhea Verified 11/22/18 14:13 Review of Systems ROS Statement: Those systems with pertinent positive or pertinent negative responses have been documented in the HPI. ROS Other: All systems not noted in ROS Statement are negative. 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 from past job, "leaky valves" History of Any Multi-Drug Resistant Organisms: None Reported Past Surgical History: Heart Catheterization, Hernia Repair Additional Past Surgical History / Comment(s): lymph node removed,surg for undescended testicles as teen, colonoscopies, GABI FUNDOPLASTY, EGD, cataracts removed, laser surg for glaucoma Past Anesthesia/Blood Transfusion Reactions: Motion Sickness Past Psychological History: No Psychological Hx Reported Smoking Status: Former smoker Past Alcohol Use History: None Reported Past Drug Use History: None Reported - Past Family History Father Family Medical History: Diabetes Mellitus, Hypertension Additional Family Medical History / Comment(s): abdominal Aneurysm Brother(s) Family Medical History: CVA/TIA Mother Family Medical History: No Reported History General Exam - General Exam Comments Initial Comments: Constitutional: NAD, AOX3, Pt has pleasant affect. HEENT: NC/AT, trachea midline, neck supple, no lymphadenopathy. Posterior pharynx non erythematous, without exudates. External ears appear normal, without discharge. Mucous membranes moist. Eyes PERRLA, EOM intact. There is no scleral icterus. No pallor noted. Cardiopulmonary: RRR, no murmurs, rubs or gallops, no JVD noted. Lungs CTAB in anterior and posterior yoder. No peripheral edema. Abdominal exam: Abdomen soft and non-distended. Abdomen non-tender to palpation in all 4 quadrants. Bowel sounds active in LLQ. No hepatosplenomegaly. No ecchymosis Neuro: CN II-XII intact. No nuchal rigidity. NIH 0. MSK: No posterior calf tenderness bilaterally, homans sign negative bilaterally. Capillary refill less than 2 seconds in upper and lower extremities. Posterior tibialis and radial pulse +2 bilaterally, and equal. Sensation intact to soft touch in upper and lower extremities. Full active ROM in upper and lower extremities, 5/5 strength and equal. Ambulatory without difficulty. Limitations: no limitations Course Vital Signs 11/22/18 14:10 Temperature 98.4 F Pulse Rate 79 Respiratory 18 Rate Blood Pressure 157/78 O2 Sat by Pulse 97 Oximetry Medical Decision Making - Medical Decision Making 73-year-old male patient past medical history of hypertension, type 2 diabetes, lumbar back pain, hiatal and umbilical hernia repair presents to ED with paresthesias in the right lower extremity. Patient reports that paresthesias in his right lower extremity initially started approximately 3 months ago. Patient reports that he was in [place] at that time and presented to an ER, he states that they adjusted his blood pressure medication and the paresthesias resolved. Patient reports that yesterday night he began to explain his paresthesias in right lower extremity again. Patient states that he notices that they begin when he is at rest and they resolve while getting up and doing physical exertion. Patient denies any recent falls or trauma. Patient denies any altere d mental status, facial droop, headaches, changes in vision. Patient denies any saddle anesthesia, loss of bowel or bladder control. Denies any chest pain shortness of breath abdominal pain nausea vomiting or diarrhea. PT VSS, afebrile. Physical exam displayed: CN II-XII intact. No nuchal rigidity. NIH 0. No posterior calf tenderness bilaterally, homans sign negative bilaterally. Capillary refill less than 2 seconds in upper and lower extremities. Posterior tibialis and radial pulse +2 bilaterally, and equal. Sensation intact to soft touch in upper and lower extremities. Full active ROM in upper and lower extremities, 5/5 strength and equal. Ambulatory without difficulty. Laboratory investigations reveal non-impressive CBC, CMP, cogulation studies. UA negative. EKG not concerning for acute ischemia. Brain CT displayed no acute intracranial process. Lumbar spine CT without contrast displayed general changes T11 through T12. Mild disc bulging L2-L3, L3-L4. Small left paracent ral disc herniation L4-L5. Patient's symptoms like a muscular skeletal, sciatica related. Patient discharged with orthopedic follow-up. Patient return to ER if condition worsens in any way. Return precautions discussed. Case discussed in depth with Dr. Elizabeth. - Lab Data Result diagrams: 11/22/18 14:53 11/22/18 14:53 Lab Results 11/22/18 11/22/18 11/22/18 Range/Units 14:53 14:53 14:53 WBC 8.5 (3.8-10.6) k/uL RBC 4.08 L (4.30-5.90) m/uL Hgb 13.6 (13.0-17.5) gm/dL Hct 37.4 L (39.0-53.0) % MCV 91.5 (80.0-100.0) fL MCH 33.4 (25.0-35.0) pg MCHC 36.4 (31.0-37.0) g/dL RDW 12.5 (11.5-15.5) % Plt Count 214 (150-450) k/uL Neutrophils % 54 % Lymphocytes % 33 % Monocytes % 7 % Eosinophils % 4 % Basophils % 0 % Neutrophils # 4.6 (1.3-7.7) k/uL Lymphocytes # 2.8 (1.0-4.8) k/uL Monocytes # 0.6 (0-1.0) k/uL Eosinophils # 0.3 (0-0.7) k/uL Basophils # 0.0 (0-0.2) k/uL PT 10.0 (9.0-12.0) sec INR 0.9 (<1.2) APTT 23.9 (22.0-30.0) sec Sodium 137 (137-145) mmol/L Potassium 4.3 (3.5-5.1) mmol/L Chloride 105 (98-107) mmol/L Carbon Dioxide 23 (22-30) mmol/L Anion Gap 9 mmol/L BUN 18 (9-20) mg/dL Creatinine 0.68 (0.66-1.25) mg/dL Est GFR (CKD-EPI)AfAm >90 (>60 ml/min/1.73 sqM) Est GFR (CKD-EPI)NonAf >90 (>60 ml/min/1.73 sqM) Glucose 179 H (74-99) mg/dL Calcium 10.0 (8.4-10.2) mg/dL Magnesium (1.6-2.3) mg/dL Total Bilirubin 0.6 (0.2-1.3) mg/dL AST 27 (17-59) U/L ALT 30 (21-72) U/L Alkaline Phosphatase 37 L (38-126) U/L Total Protein 6.9 (6.3-8.2) g/dL Albumin 4.5 (3.5-5.0) g/dL Urine Color Urine Appearance (Clear) Urine pH (5.0-8.0) Ur Specific Lawn (1.001-1.035) Urine Protein (Negative) Urine Glucose (UA) (Negative) Urine Ketones (Negative) Urine Blood (Negative) Urine Nitrite (Negative) Urine Bilirubin (Negative) Urine Urobilinogen (<2.0) mg/dL Ur Leukocyte Esterase (Negative) 11/22/18 11/22/18 Range/Units 14:53 15:30 WBC (3.8-10.6) k/uL RBC (4.30-5.90) m/uL Hgb (13.0-17.5) gm/dL Hct (39.0-53.0) % MCV (80.0-100.0) fL MCH (25.0-35.0) pg MCHC (31.0-37.0) g/dL RDW (11.5-15.5) % Plt Count (150-450) k/uL Neutrophils % % Lymphocytes % % Monocytes % % Eosinophils % % Basophils % % Neutrophils # (1.3-7.7) k/uL Lymphocytes # (1.0-4.8) k/uL Monocytes # (0-1.0) k/uL Eosinophils # (0-0.7) k/uL Basophils # (0-0.2) k/uL PT (9.0-12.0) sec INR (<1.2) APTT (22.0-30.0) sec Sodium (137-145) mmol/L Potassium (3.5-5.1) mmol/L Chloride (98-107) mmol/L Carbon Dioxide (22-30) mmol/L Anion Gap mmol/L BUN (9-20) mg/dL Creatinine (0.66-1.25) mg/dL Est GFR (CKD-EPI)AfAm (>60 ml/min/1.73 sqM) Est GFR (CKD-EPI)NonAf (>60 ml/min/1.73 sqM) Glucose (74-99) mg/dL Calcium (8.4-10.2) mg/dL Magnesium 1.8 (1.6-2.3) mg/dL Total Bilirubin (0.2-1.3) mg/dL AST (17-59) U/L ALT (21-72) U/L Alkaline Phosphatase (38-126) U/L Total Protein (6.3-8.2) g/dL Albumin (3.5-5.0) g/dL Urine Color Light Yellow Urine Appearance Clear (Clear) Urine pH 5.5 (5.0-8.0) Ur Specific Lawn 1.009 (1.001-1.035) Urine Protein Negative (Negative) Urine Glucose (UA) Negative (Negative) Urine Ketones Negative (Negative) Urine Blood Negative (Negative) Urine Nitrite Negative (Negative) Urine Bilirubin Negative (Negative) Urine Urobilinogen <2.0 (<2.0) mg/dL Ur Leukocyte Esterase Negative (Negative) - EKG Data -: EKG Interpreted by Vt EKG Comments: Ventricular rate 62, FL interval 200, QRS 96, QT/QTc 452/458. Normal sinus rhythm, normal EKG, no concern for acute ischemia. Disposition Clinical Impression: Sciatica Disposition: HOME SELF-CARE Condition: Stable Instructions (If sedation given, give patient instructions): Sciatica (ED) Additional Instructions: Patient to adhere to previously discussed treatment plan and will take medication(s) as directed. Patient to follow up with PCP in 1-2 days. Patient to return to ED if symptoms do not improve. Please follow-up with orthopedic consult and primary care physician one to 2 days. Return immediately to ER if condition worsens in any way. Is patient prescribed a controlled substance at d/c from ED?: No Referrals: Edwardo Feldman, [Primary Care Provider] - 1-2 days Omi Oh, DO [Medical Doctor] - 1-2 days
[2018-11-22 15:45] LABS: Appearance,Urine Clear (Clear); Bilirubin,Urine Negative (Negative); Blood,Urine Negative (Negative); Color,Urine Light Yellow; Glucose,Urine (UA) Negative (Negative); Ketones,Urine Negative (Negative); Leukocyte Esterase,Urine Negative (Negative); Nitrite,Urine Negative (Negative); PH, Urine 5.5 (5.0-8.0); Protein,Urine Negative (Negative); Specific Gravity,Urine 1.009 (1.001-1.035); Urobilinogen,Urine <2.0 mg/dL (<2.0)
[2018-11-22 17:02] VITALS: BP 147/68; PULSE 55; TEMP 97.8
== END 2018-11-22 17:00 | disposition home or self-care (01) ==
LOC: EC 14:08
DX: M51.16 Intervertebral disc disorders with radiculopathy, lumbar region (principal); E11.9 Type 2 diabetes mellitus without complications; E78.5 Hyperlipidemia, unspecified; I10 Essential (primary) hypertension; Q60.0 Renal agenesis, unilateral; Z85.72 Personal history of non-Hodgkin lymphomas; Z87.891 Personal history of nicotine dependence; Z92.21 Personal history of antineoplastic chemotherapy; Z98.890 Other specified postprocedural states; Z79.4 Long term (current) use of insulin; Z79.82 Long term (current) use of aspirin; Z79.899 Other long term (current) drug therapy; Z88.0 Allergy status to penicillin
CPT/HCPCS: 36415; 70450; 72131; 80053; 81003; 83735; 85025; 85610; 85730; 93005; 96360; 99285

== ENCOUNTER → 2019-01-01 | Outpatient (CLI) | payer MEDICARE ==
[2019-01-01 18:08] LABS: Hemoglobin A1C 6.9 % (4.0-6.0)
[2019-01-01 19:00] LABS: African American GFR (CKD) 77.3 (60.0-200.0); Albumin 4.4 g/dL (3.80-4.90); Albumin/Globulin Ratio 2.59 (1.60-3.17); BUN/Creat Ratio 16.36 Ratio (12.00-20.00); Calcium 9.7 mg/dL (8.7-10.3); Globulin 1.7 g/dL (1.6-3.3); LDL Cholesterol,Calculated 70.2 mg/dL (0.0-131.0); Potassium 4.5 mmol/L (3.5-5.5); Total Bilirubin 0.8 mg/dL (0.2-1.2); Total Protein 6.1 g/dL (6.2-8.2); VLDL Calculation 24.8 mg/dL (5.00-40.00)
== END | disposition home or self-care (01) ==
LOC: LABWHC1 08:43
PROVIDERS: ATTEND Internal Medicine Endocrinology, Diabetes & Metabolism
DX: E11.9 Type 2 diabetes mellitus without complications (principal)
CPT/HCPCS: 36415; 80053; 80061; 82043; 82570; 83036; 84443

== ENCOUNTER → 2019-02-23 | Outpatient (CLI) | payer MEDICARE ==
--- NOTE | 2019-02-23 17:53 | MR ---
EXAMINATION TYPE: MR cervical spine wo con DATE OF EXAM: 02/23/2019 COMPARISON: None HISTORY: Cervical spine stenosis with myelopathy, weakness in legs TECHNIQUE: Multiplanar, multisequence images of the cervical spine were acquired. Cervical vertebra have normal alignment. There is degenerative disc space narrowing throughout the ce rvical spine with spurring of the endplates. There is posterior disc herniation from C3 to C7. There is also T1-T2 mild posterior disc herniation. There is significant flattening of the cervical spinal cord at C3-4. There is 3 mm spinal stenosis. Cervical cord shows mild edema at the before meals 3 4 l evel. There is 5 mm spinal stenosis at C4-5. There is a mild 7 mm relative spinal stenosis at C6-7. T here is very slight increased signal in the cervical cord also at C4-5 level. Brainstem is intact. There is no evidence of a fracture. IMPRESSION: Moderate multilevel spondylotic changes with multilevel posterior disc herniation and endplate spur f ormation. Severe C3-4 3 mm spinal stenosis. Mild cord edema. There is probably myelomalacia.
== END | disposition home or self-care (01) ==
LOC: RADMRIMAIN 12:45
PROVIDERS: ATTEND Psychiatry & Neurology Neurology
DX: M48.02 Spinal stenosis, cervical region (principal); M50.023 Cervical disc disorder at C6-C7 level with myelopathy; M47.12 Other spondylosis with myelopathy, cervical region; R53.1 Weakness; R26.89 Other abnormalities of gait and mobility
CPT/HCPCS: 72141

== ENCOUNTER → 2019-03-01 | Outpatient (CLI) | payer MEDICARE ==
[2019-03-01 12:48] LABS: INR 0.9 (<1.2); Partial Thromboplastin Time 24.4 sec (22.0-30.0)
[2019-03-01 12:49] LABS: Basophils % (A) 1 %; Eosinophils # (A) 0.3 k/uL (0-0.7); Eosinophils % (A) 3 %; HGB 13.8 gm/dL (13.0-17.5); Lymphocytes # (A) 2.5 k/uL (1.0-4.8); Lymphocytes % (A) 30 %; MCH 33.7 pg (25.0-35.0); MCHC 35.3 g/dL (31.0-37.0); MCV 95.5 fL (80.0-100.0); Mean Platelet Volume 7.4; Monocytes # (A) 0.5 k/uL (0-1.0); Monocytes % (A) 6 %; Neutrophils # (A) 4.9 k/uL (1.3-7.7); Neutrophils % (A) 59 %; Platelet Count 218 k/uL (150-450); RBC 4.08 m/uL (4.30-5.90); WBC 8.4 k/uL (3.8-10.6)
[2019-03-01 13:04] LABS: African American GFR (CKD) >90 (>60 ml/min/1.73 sqM); Anion Gap 9 mmol/L; Blood Urea Nitrogen 18 mg/dL (9-20); Calcium 9.9 mg/dL (8.4-10.2); Carbon Dioxide 28 mmol/L (22-30); Chloride 102 mmol/L (98-107); Glucose 165 mg/dL (74-99); Potassium 4.9 mmol/L (3.5-5.1); Sodium 139 mmol/L (137-145)
--- NOTE | 2019-03-01 15:15 | XR ---
EXAMINATION TYPE: XR chest 2V DATE OF EXAM: 03/01/2019 COMPARISON: 04/03/2018 HISTORY: 74-year-old male severe stenosis, presurgical evaluation TECHNIQUE: Frontal and lateral views FINDINGS: Heart normal size. Atherosclerotic arch calcifications. Strandy atelectasis lower lungs. No consolida tion or pleural effusion. IMPRESSION: No acute cardiopulmonary process.
[2019-03-01 16:23] LABS: Appearance,Urine Clear (Clear); Bilirubin,Urine Negative (Negative); Blood,Urine Negative (Negative); Color,Urine Yellow; Glucose,Urine (UA) Negative (Negative); Ketones,Urine Negative (Negative); Leukocyte Esterase,Urine Negative (Negative); Nitrite,Urine Negative (Negative); Protein,Urine Trace (Negative); Specific Gravity,Urine 1.012 (1.001-1.035); Urobilinogen,Urine <2.0 mg/dL (<2.0)
== END | disposition home or self-care (01) ==
LOC: LABPAT 11:52
PROVIDERS: ATTEND Orthopaedic Surgery Orthopaedic Surgery of the Spine
DX: Z01.812 Encounter for preprocedural laboratory examination (principal)
CPT/HCPCS: 36415; 71046; 80048; 81003; 85025; 85610; 85730; 86850; 86900; 86901

== ENCOUNTER → 2019-03-06 | Outpatient (CLI) | payer MEDICARE ==
[2019-03-06 17:40] LABS: African American GFR (CKD) 97.9 (60.0-200.0); Albumin 4.6 g/dL (3.80-4.90); Albumin/Globulin Ratio 2.71 (1.60-3.17); Anion Gap 9.7 mmol/L (4.00-12.00); BUN/Creat Ratio 16.67 Ratio (12.00-20.00); Calcium 9.6 mg/dL (8.7-10.3); Carbon Dioxide 25.3 mmol/L (21.6-31.8); Chol/HDL Ratio 3.02; Globulin 1.7 g/dL (1.6-3.3); LDL Cholesterol,Calculated 76.6 mg/dL (0.0-131.0); Potassium 3.9 mmol/L (3.5-5.5); Total Bilirubin 0.9 mg/dL (0.2-1.2); Total Protein 6.3 g/dL (6.2-8.2); VLDL Calculation 16.4 mg/dL (5.00-40.00)
== END | disposition home or self-care (01) ==
LOC: LABWHC1 08:15
PROVIDERS: ATTEND Internal Medicine Interventional Cardiology
DX: E78.2 Mixed hyperlipidemia (principal)
CPT/HCPCS: 36415; 80053; 80061

== ENCOUNTER 2019-03-13 11:41 | Day surgery (SDC) | payer MEDICARE ==
[2019-03-07 11:43] VITALS: BMI 28.5
[~2019-03-13 11:41] MED LIST changes: +BACITRACIN 50,000 UNIT, POLYMYXIN B 500,000 UNIT in SODIUM CHLORIDE 0.9% IRRIGATIO 1,00... IRRIGATION ONE; +DEXAMETHASONE SOD PHOSPHATE 10 MG/ML 1 ML VIAL IV ONE; -INSULIN ASPART (NovoLOG) 100 UNIT/ML VIAL SQ SCH; -INSULIN GLARGINE HUM REC ANLOG 56 UNIT SQ SCH; +LIDOCAINE 1% 20 ML VIAL (10MG/ML) FOR IV START INTRADERMA PRN; -LISINOPRIL 10 MG TAB PO SCH; -MIDAZOLAM (PF) 2 MG/2 ML VIAL IVP ONE; +MIDAZOLAM 2 MG/2 ML VIAL IV PRN; -NON-FORMULARY DRUG (Aspirin Ec 81 MG) PO SCH; -NON-FORMULARY DRUG (Cholecalciferol (Vitamin D3) [Vitamin D3] 2,000 UNIT) PO SCH; -NON-FORMULARY DRUG (Metformin Hcl [Metformin Hcl] 1,000 MG) PO SCH; -NON-FORMULARY DRUG (Multivitamin [Men's Multi-Vitamin] 1 TAB) PO SCH; -NON-FORMULARY DRUG (Vitamin B Complex [Vitamin B Complex] 1 CAP) PO SCH; +ONDANSETRON 4 MG/2 ML VIAL IVP ONE; -PUMP TOPICAL SCH; -REPAGLINIDE 1 MG TAB PO SCH; -ROSUVASTATIN CALCIUM 10 MG PO SCH; +SCOPOLAMINE 1.5MG/72HR PATCH TRANSDERM ONE; -SODIUM CHLORIDE 0.9% 1,000 ML IV SCH; -SODIUM CHLORIDE 0.9% 500 ML 500 ML IV ONE; -TESTOSTERONE TOPICAL SCH; -fentaNYL (PF) 50 MCG/ML 2 ML AMP ONE
[2019-03-13] MEDS: LACTATED RINGERS 1,000 ML IV SCH (12:50)
[2019-03-13 12:52] LABS: Glucose,Whole Blood 224 mg/dL (75-99)
[2019-03-13] MEDS ORDERED: INSULIN ASPART (NovoLOG) 100 UNIT/ML VIAL SQ ONE (12:59)
[2019-03-13] MEDS ORDERED: MIDAZOLAM 2 MG/2 ML VIAL ONE (13:33)
[2019-03-13] MEDS ORDERED: ePHEDrine SULFATE/0.9% NACL/PF 50 MG/5 ML SYRINGE IV ONE (13:33)
[2019-03-13] MEDS ORDERED: PROPOFOL 10 MG/ML 20 ML VIAL IV ONE (13:33)
[2019-03-13] MEDS ORDERED: KETAMINE 10 MG/ML 20 ML VIAL ONE (13:33)
[2019-03-13] MEDS ORDERED: LIDOCAINE 1% INJ 10MG/ML (20 ML MDV) ONE (13:33)
[2019-03-13] MEDS ORDERED: fentaNYL (PF) 50 MCG/ML 2 ML AMP ONE (13:33)
[2019-03-13] MEDS ORDERED: SUCCINYLCHOLINE CHLORIDE 100 MG/5 ML SYR IV ONE (13:33)
[2019-03-13] MEDS ORDERED: THROMBIN (BOVINE) 5,000 UNIT VIAL TOPICAL ONE (14:10)
[2019-03-13] MEDS ORDERED: GELATIN SPONGE,ABSORB (SMALL) 1 EACH SPONGE TOPICAL ONE (14:10)
[2019-03-13] MEDS ORDERED: BUPIVACAIN-EPI 0.25%-1:200,000 30 ML VIAL SQ ONE (14:10)
[2019-03-13] MEDS ORDERED: LACTATED RINGERS 1,000 ML IV ONE (14:30)
--- NOTE | 2019-03-13 15:09 | XR ---
EXAMINATION TYPE: XR cervical spine 1V DATE OF EXAM: 03/13/2019 COMPARISON: NONE HISTORY: Needle placement of the cervical spine, intraoperative assessment TECHNIQUE: Single crosstable lateral view of the upper cervical spine was obtained intraoperatively FINDINGS: Foramen anterior approach needle localization is seen at the C3-C4 intervertebral level. Pa tient is noted to be intubated with moderate degenerative changes of the cervical spine also seen. IMPRESSION: Localization at the C3-C4 intervertebral level.
[2019-03-13] MEDS ORDERED: BENZOCAINE/MENTHOL LOZENG 1 EACH LOZENGE MUCOUS MEM PRN (15:43)
[2019-03-13] MEDS ORDERED: ONDANSETRON 4 MG/2 ML VIAL IVP PRN (15:43)
[2019-03-13] MEDS ORDERED: MAGNESIUM HYDROXIDE 2,400 MG/10 ML CUP PO PRN (15:43)
[2019-03-13] MEDS ORDERED: HYDROmorphone 0.5 MG/0.5 ML SYRINGE IVP PRN (15:43)
[2019-03-13] MEDS ORDERED: HYDROmorphone 1 MG/ML 1 ML SYRINGE IVP PRN (15:43)
[2019-03-13] MEDS ORDERED: HYDROcodone/APAP 5-325MG 1 EACH TAB PO PRN (15:43)
--- NOTE | 2019-03-13 16:00 | P.OP ---
Date of Procedure: 03/13/19 Preoperative Diagnosis: Cervical myelomalacia, severe cervical stenosis C3 4 C4 5, cervical radiculopathy, upper extremity weakness, degenerative disc disease, Postoperative Diagnosis: Same Anesthesia: GETA Pathology: none sent Condition: stable Disposition: PACU Description of Procedure: BRIEF OPERATIVE NOTE Preoperative Diagnosis:Cervical myelomalacia, severe cervical stenosis C3 4 C4 5, cervical radiculopathy, upper extremity weakness, degenerative disc disease, Postoperative Diagnosis:Cervical myelomalacia, severe cervical stenosis C3 4 C4 5, cervical radiculopathy, upper extremity weakness, degenerative disc disease, Procedure: Anterior cervical decompression with discectomy and fusion C3 4 C4 5 Placement of interbody graft C3 4 C4 5 Application of anterior cervical plate C3 4 5 Surgeon: Dr. Hayward [employer] Lead: Serge Echols is present throughout the entire the case persistence during positioning, dissection, exposure, visualization, and all crucial elements of the case as well as closure. Anesthesia: General anesthesia Estimated blood loss: Approximately 30 mL Complications: None apparent Components implanted: K2M [place] anterior cervical plate system with a combination of 40 and 4.5 locking and variable angle screws Disposition: To recovery room in good stable condition. OPERATIVE INDICATIONS The patient has had long-standing issues in their neck and upper extremities. His been having worsening symptoms at his neck and his bilateral upper extremities. He is having worsening difficulties with his ambulation as well as his coordination with his hands and arms. He had decrease in motion in his neck as well over the past couple of years. His found to have severe cervical stenosis with cervical myelomalacia and evidence of cervical myelopathy and his bilateral upper extremities. The patient has been through conservative treatment. He is having progressive worsening over the past several months and we discussed surgical options. We discussed various treatment options including surgery, and the patient wishes to proceed with surgery We discussed the risk, patient's alternatives and benefits of surgery including but not limited to, risk of bleeding risk of infection, risk of need for further surgery, risk of decreased, loss of motion, muscle function, malunion nonunion, hardware failure, nerve damage, paralysis, heart attack, and . OPERATIVE SUMMARY After discussing all the risks, patient alternatives and benefits at length, the patient elected to proceed with surgical intervention, signed informed consent, and presented for their procedure. The patient was seen and examined in the preoperative holding area and the surgical site was marked. The patient was given antibiotics and brought to the operating room. The patient was positioned on the operating room table in a supine position being careful to pad any bony prominences and pressure points. The patient was sedated and intubated by anesthesia in standard fashion. Once the airway and C- spine were stabilized the patient's arms were padded and tucked at her side, with her shoulders gently taped. The head was placed in a donut pad with the neck in good neutral alignment and position. We were careful to maintain the patient's cervical spine and good neutral alignment and position throughout. The patient was prepped and draped in a normal standard fashion. An appropriate timeout and keystone protocol performed. We were able to proceed with the surgery. The local wound area was infiltrated with local anesthetic. An incision was made transversely approximately 2-1/2 cm over the appropriate levels at C4. Dissection was taken down subcutaneously to the level of the platysma which was split in line with its fibers. Dissection was taken with a carotid approach, with the trachea and esophagus medial and the carotid sheath laterally. We dissected down to the anterior surface of the vertebral bodies. Intraoperative x-ray was taken which showed a marker at the appropriate level. With the appropriate level positively confirmed, we were able to proceed with discectomy at the appropriate levels at C3 4 and C4 5. All of the operative levels were exposed appropriately. The patient had all their twitches back, and there was no evidence of recurrent laryngeal issue. The wound was copiously irrigated and suctioned dry as had been done periodically throughout the case. At the appropriate level/levels, starting at C3 4 and then moving C4 5, I established an annulotomy with an 11 blade scalpel. A discectomy was performed with a combination of pituitary rongeurs, curettes, a high-speed bur, and Kerrison rongeurs. The posterior longitudinal ligament was taken down as were any posterior osteophytes. Note had been made of severe central and bilateral foraminal stenosis with disc protrusion centrally and at the neural foramen. This was remedied with decompression and discectomy. This gave good central and bilateral foraminal decompression. There is no evidence of any dural tear or leak. The endplates were prepared with a high-speed bur. With the endplates in good parallel position, I was able to size for the appropriate size interbody graft. The wound was irrigated and suctioned dry the graft was prepared and malleted into position. It had good alignment and position with the anterior surface flush with the anterior surface of the vertebral bodies. This was done similarly the appropriate levels first at C3 4 and at C4 5. With the grafts intact, I was able to measure and contour and appropriate sized plate. The plate was positioned at the midline over the appropriate levels at C3 4 and 5. Screw holes were established with a hand drill and drill guide. Screws were placed in good alignment and position with excellent bony purchase. They were seated under the locking device. The construct was checked and found to be stable. Intraoperative x-ray was taken which showed good alignment and position of the implants at the appropriate levels. There was no evidence of any dural tear or leak. Good hemostasis was maintained. The wound was copiously irrigated and suctioned dry as had been done periodically throughout the case. The platysma was closed with absorbable suture. The subcutaneous tissue was closed. The subcuticular tissue was closed with absorbable suture. The wound was cleaned and dried and dressed appropriately. A soft cervical collar was placed appropriately. The patient was woken up by anesthesia, extubated, transferred back gently to their hospital bed and brought to the recovery room in good stable condition. The patient will be admitted to the hospital for appropriate postoperative care, medical management and monitoring. We will continue to follow them closely about the postoperative course.
--- NOTE | 2019-03-13 16:02 | XR ---
EXAMINATION TYPE: XR cervical spine 1V DATE OF EXAM: 03/13/2019 COMPARISON: 03/13/2019 HISTORY: Hardware placement of the cervical spine. Postoperative exam. TECHNIQUE: Single crosstable lateral view was performed of the cervical spine. FINDINGS: The patient is intubated. New anterior cervical fusion device spans the C3-C5 vertebral bod ies with intervertebral disc spacers at C3-C4 and C4-C5. Mild degenerative disc disease is seen of th e C2-C3 and C5-C6 intervertebral levels. The lower cervical spine is not imaged. IMPRESSION: Postsurgical changes of anterior fusion from C3 through C5.
[2019-03-13 16:07] LABS: Glucose,Whole Blood 177 mg/dL (75-99)
[2019-03-13] MEDS: HYDROmorphone 0.5 MG/0.5 ML SYRINGE IVP PRN ×2 (16:28→16:40)
[2019-03-13] MEDS: SODIUM CHLORIDE 0.9% 1,000 ML IV SCH (17:24)
[2019-03-13] MEDS: metFORMIN 500 MG TAB PO SCH (17:49)
[2019-03-13] MEDS: REPAGLINIDE 1 MG TAB PO SCH (17:49)
[2019-03-13 20:44] LABS: Glucose,Whole Blood 235 mg/dL (75-99)
[2019-03-13] MEDS ORDERED: ATORVASTATIN 20 MG TAB PO SCH (21:00)
[2019-03-13] MEDS ORDERED: metFORMIN 500 MG TAB PO STA (21:13)
[2019-03-14] MEDS: LACTATED RINGERS 1,000 ML IV SCH (02:23)
[2019-03-14] MEDS: SODIUM CHLORIDE 0.9% 1,000 ML IV SCH (05:38)
[2019-03-14] MEDS ORDERED: INSULIN DETEMIR (LEVEMIR) 100 UNIT/ML SYR SQ SCH (07:00)
[2019-03-14] MEDS: metFORMIN 500 MG TAB PO SCH (07:07)
[2019-03-14] MEDS: REPAGLINIDE 1 MG TAB PO SCH (07:07)
[2019-03-14 07:28] LABS: Glucose,Whole Blood 234 mg/dL (75-99)
[2019-03-14 07:51] VITALS: BP 146/71; PULSE 71; RESP 12; TEMP 98.1
--- NOTE | 2019-03-14 08:00 | P.DS ---
Providers Date of admission: 03/13/19 Attending physician: Ainsley Hayward Primary care physician: [facility] Course: The patient presented on the day of admission as per their operative note. He had severe cervical stenosis C3 4 C4 5 with myelomalacia and cervical myelopathy with upper extremity weakness for which she underwent anterior cervical decompression and fusion at C3 4 and C4 5 as per his operative note. He feels his arms have made some improvement with his surgery. He has been up in his room and is voiding freely. He is tolerating a soft diet. Physical Exam The incision site is clean dry and intact. There is no erythema no drainage. There is no purulence no evidence of infection. His neck is soft and supple without significant swelling Abdomen soft and nontender. Chest has good excursion with deep inspiration and expiration. The patient has active and passive range of motion intact at the upper and lower extremities. There is no acute change in neurologic status. He has help desk analyst intact with biceps and triceps intact. His lower extremities have full active passive range of motion. Hospital Course Postoperative day #1 status post anterior cervical discectomy and fusion C3 4 C4 5 for his severe cervical stenosis with cervical myelomalacia and myelopathy and upper extremity weakness. The patient feels he is making progress with his upper extremities already. The patient has been making good progress postoperatively. They have completed the prophylactic antibiotics without any signs or symptoms of infection. The patient has been able to advance their diet, and is tolerating diet adequately. The pain was initially controlled with IV medications and is now controlled appropriately with oral medications. The patient has been able to increase their mobilization. The patient has progressed appropriately. I think they are in good stable condition for discharge today. They will be sent home with appropriate prescriptions. I answered their questions to the best of my ability in a language that they can understand and they are agreeable with the plan. They will follow up as directed. Patient Condition at Discharge: Good Plan - Discharge Summary Discharge Rx Participant: No New Discharge Prescriptions: New HYDROcodone/APAP 5-325MG [[place] 5] 1 each PO Q6HR PRN #12 tab PRN Reason: Pain No Action Rosuvastatin Calcium [Crestor] 10 mg PO HS metFORMIN HCL 1,000 mg PO BID Repaglinide [Prandin] 1 mg PO BID Lisinopril [Zestril] 10 mg PO DAILY Vitamin B Complex 1 cap PO DAILY Multivitamin [Men's Multi-Vitamin] 1 tab PO DAILY Insulin Glargine,Hum.rec.anlog [Toujeo Solostar] 58 units SQ QAM Testosterone [Androgel 1.62% Gel Pump] 1 pump TOPICAL Q2D Aspirin EC [Ecotrin Low Dose] 81 mg PO DAILY Cholecalciferol (Vitamin D3) [Vitamin D3] 2,000 unit PO DAILY Discharge Medication List Lisinopril [Zestril] 10 mg PO DAILY 04/24/15 [History] Multivitamin [Men's Multi-Vitamin] 1 tab PO DAILY 04/24/15 [History] Repaglinide [Prandin] 1 mg PO BID 04/24/15 [History] Rosuvastatin Calcium [Crestor] 10 mg PO HS 04/24/15 [History] Vitamin B Complex 1 cap PO DAILY 04/24/15 [History] metFORMIN HCL 1,000 mg PO BID 04/24/15 [History] Insulin Glargine,Hum.rec.anlog [Toujeo Solostar] 58 units SQ QAM 12/07/15 [History] Aspirin EC [Ecotrin Low Dose] 81 mg PO DAILY 04/03/18 [History] Testosterone [Androgel 1.62% Gel Pump] 1 pump TOPICAL Q2D 04/03/18 [History] Cholecalciferol (Vitamin D3) [Vitamin D3] 2,000 unit PO DAILY 10/19/18 [History] HYDROcodone/APAP 5-325MG [[place] 5] 1 each PO Q6HR PRN #12 tab 03/13/19 [Rx] Follow up Appointment(s)/Referral(s): Ainsley Hayward DO [Doctor of Osteopathic Medicine] - 2 Weeks Activity/Diet/Wound Care/Special Instructions: Keep site clean. May shower with waterproof Tegaderm intact. Do not soak in a tub. After 72 hours postoperatively, patient May remove dressing and then may shower with area uncovered. Leave Steri-Strips intact and allow them to fray off on their own. May ambulate as tolerated. Avoid heavy or rigorous activity. No repetitive bending twisting or lifting. No overhead work.
[2019-03-14] MEDS ORDERED: LISINOPRIL 10 MG TAB PO SCH (09:00)
[2019-03-14] MEDS ORDERED: ASPIRIN 81 MG PO SCH (09:00)
[2019-03-14] MEDS ORDERED: MULTIVITAMINS, THERA 1 EACH TAB PO SCH (09:00)
[2019-03-14] MEDS ORDERED: CHOLECALCIFEROL 1,000 UNIT TAB PO SCH (09:00)
[2019-03-14] MEDS ORDERED: SENNOSIDES-DOCUSATE SODIUM 1 EACH TAB PO SCH (09:00)
[2019-03-14] MEDS ORDERED: NON FORMULARY DRUG (Vitamin B Complex [Vitamin B Complex] 1 CAP) PO SCH (09:00)
== END 2019-03-14 10:05 ==
LOC: OR 11:41 → EDSTATUS 13:00 → 4SSUR 15:45 → OR 03-14 10:05
PROVIDERS: ATTEND Orthopaedic Surgery Orthopaedic Surgery of the Spine
DX: M50.121 Cervical disc disorder at C4-C5 level with radiculopathy (principal); M48.02 Spinal stenosis, cervical region; G95.89 Other specified diseases of spinal cord; M50.021 Cervical disc disorder at C4-C5 level with myelopathy; M47.27 Other spondylosis with radiculopathy, lumbosacral region; M48.062 Spinal stenosis, lumbar region with neurogenic claudication; M43.16 Spondylolisthesis, lumbar region; I11.9 Hypertensive heart disease without heart failure; I25.10 Atherosclerotic heart disease of native coronary artery without angina pectoris; I35.1 Nonrheumatic aortic (valve) insufficiency; E11.9 Type 2 diabetes mellitus without complications; E78.2 Mixed hyperlipidemia; H91.90 Unspecified hearing loss, unspecified ear; R26.81 Unsteadiness on feet; Z79.4 Long term (current) use of insulin; Z79.899 Other long term (current) drug therapy; Z85.72 Personal history of non-Hodgkin lymphomas; Z87.19 Personal history of other diseases of the digestive system; Z98.890 Other specified postprocedural states; Z87.891 Personal history of nicotine dependence; Z91.81 History of falling; Z82.49 Family history of ischemic heart disease and other diseases of the circulatory system; Z79.82 Long term (current) use of aspirin; Z79.890 Hormone replacement therapy; Z88.0 Allergy status to penicillin
CPT/HCPCS: 22551; 22552; 22853 ×2; 86900; 86901; 86850; 72020; C1713 ×2; C1762 ×2; J2250; J0690 ×2; J2405; J2001; J3010; J0330; J2704; J1170

== ENCOUNTER → 2020-03-10 | Outpatient (CLI) | payer MEDICARE ==
[2020-03-10 16:35] LABS: African American GFR (CKD) 85.6 (60.0-200.0); Albumin 4.5 g/dL (3.80-4.90); Albumin/Globulin Ratio 2.25 (1.60-3.17); Anion Gap 8.6 mmol/L (4.00-12.00); Calcium 9.8 mg/dL (8.7-10.3); Carbon Dioxide 25.4 mmol/L (21.6-31.8); Non-African American GFR(CKD) 73.8 (60.0-200.0); Potassium 4.8 mmol/L (3.5-5.5); Total Bilirubin 0.7 mg/dL (0.2-1.2); Total Protein 6.5 g/dL (6.2-8.2)
[2020-03-10 16:36] LABS: Chol/HDL Ratio 3.38; LDL Cholesterol,Calculated 80.8 mg/dL (0.0-131.0); VLDL Calculation 19.2 mg/dL (5.00-40.00)
== END | disposition home or self-care (01) ==
LOC: LABWHC1 08:05
PROVIDERS: ATTEND Internal Medicine Interventional Cardiology
DX: E78.2 Mixed hyperlipidemia (principal)
CPT/HCPCS: 36415; 80053; 80061

== ENCOUNTER 2021-01-07 06:59 | Day surgery (SDC) | payer MEDICARE ==
[2021-01-05 14:24] VITALS: BMI 27.1
[~2021-01-07 06:59] MED LIST changes: -BACITRACIN 50,000 UNIT, POLYMYXIN B 500,000 UNIT in SODIUM CHLORIDE 0.9% IRRIGATIO 1,00... IRRIGATION ONE; -DEXAMETHASONE SOD PHOSPHATE 10 MG/ML 1 ML VIAL IV ONE; +LACTATED RINGERS 1,000 ML IV SCH; +LIDOCAINE 1% (10MG/ML) FOR IV START INTRADERMA PRN; -LIDOCAINE 1% 20 ML VIAL (10MG/ML) FOR IV START INTRADERMA PRN; -MIDAZOLAM 2 MG/2 ML VIAL IV PRN; -ONDANSETRON 4 MG/2 ML VIAL IVP ONE; -SCOPOLAMINE 1.5MG/72HR PATCH TRANSDERM ONE
[2021-01-07 07:32] VITALS: RESP 16; TEMP 97
[2021-01-07 07:44] LABS: Glucose,Whole Blood 139 mg/dL (75-99)
[2021-01-07] MEDS ORDERED: PROPOFOL 10 MG/ML 20 ML VIAL IV ONE (07:49)
[2021-01-07] MEDS ORDERED: LIDOCAINE 1% INJ 10MG/ML (20 ML MDV) ONE (07:49)
--- NOTE | 2021-01-07 07:57 | P.GSHP ---
History of Present Illness H&P Date: 01/07/21 Chief Complaint: History of colon polyps Is a 71-year-old male presents today for colonoscopy. Patient. History of colon polyps. 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 from past job, "leaky valves" History of Any Multi-Drug Resistant Organisms: None Reported Past Surgical History: Heart Catheterization, Hernia Repair Additional Past Surgical History / Comment(s): lymph node removed,surg for undescended testicles as teen, colonoscopies, GABI FUNDOPLASTY, EGD, cataracts removed, laser surg for glaucoma,back surgery Past Anesthesia/Blood Transfusion Reactions: No Reported Reaction Smoking Status: Former smoker - Past Family History Father Family Medical History: Diabetes Mellitus, Hypertension Additional Family Medical History / Comment(s): abdominal Aneurysm Brother(s) Family Medical History: CVA/TIA Mother Family Medical History: No Reported History Medications and Allergies Home Medications Medication Instructions Recorded Confirmed Type Multivitamin [Men's Multi-Vitamin] 1 tab PO DAILY 04/24/15 01/07/21 History Repaglinide [Prandin] 1 mg PO BID 04/24/15 01/07/21 History Rosuvastatin Calcium [Crestor] 5 mg PO DAILY 04/24/15 01/07/21 History Vitamin B Complex 1 cap PO DAILY 04/24/15 01/07/21 History lisinopriL [Zestril] 10 mg PO QAM 04/24/15 01/07/21 History metFORMIN HCL 1,000 mg PO BID 04/24/15 01/07/21 History Insulin Glargine,Hum.rec.anlog 56 units SQ QAM 12/07/15 01/07/21 History [Toujeo Solostar] Aspirin EC [Ecotrin Low Dose] 81 mg PO DAILY 04/03/18 01/07/21 History Testosterone [Androgel 1.62% Gel 1 pump TOPICAL Q7D 04/03/18 01/07/21 History Pump] Cholecalciferol (Vitamin D3) 2,000 unit PO DAILY 10/19/18 01/07/21 History [Vitamin D3] Metoprolol Tartrate [Lopressor] 25 mg PO BID 01/05/21 01/07/21 History Allergies Allergy/AdvReac Type Severity Reaction Status Date / Time amoxicillin AdvReac Diarrhea Verified 01/07/21 07:21 Surgical - Exam Vital Signs Temp Pulse Resp BP Pulse Ox 97.0 F L 54 L 16 141/63 97 01/07/21 07:14 01/07/21 07:14 01/07/21 07:14 01/07/21 07:14 01/07/21 07:14 - General well developed, well nourished, no distress - Eyes PERRL - ENT normal pinna - Neck no masses - Respiratory normal expansion - Cardiovascular Rhythm: regular - Abdomen Abdomen: soft, non tender Results - Labs Abnormal Lab Results - Last 24 Hours (Table) 01/07/21 Range/Units 07:40 POC Glucose (mg/dL) 139 H (75-99) mg/dL Assessment and Plan Assessment: History of colon polyps. We'll perform colonoscopy
--- NOTE | 2021-01-07 08:11 | P.OP ---
Date of Procedure: 01/07/21 Preoperative Diagnosis: History of colon polyps Postoperative Diagnosis: Normal colon Procedure(s) Performed: Colonoscopy Anesthesia: MAC Surgeon: Mina Valdivia Pathology: none sent Condition: stable Disposition: PACU Description of Procedure: PROCEDURE: The patient was placed on the endoscopy table in the lateral position. Digital rectal examination was performed which revealed no abnormalities. The prostate was symmetrical without nodules. Flexible colonoscope was then placed in the patient's anus and passed throughout the entire colon. The ileocecal valve was visualized. The cecum, ascending, transverse, descending and sigmoid colon were normal. The rectum was normal as well. There were no masses, polyps or diverticula noted in the entire colon. SUMMARY OF FINDINGS: Normal colonoscopy.
[2021-01-07 08:33] VITALS: BP 131/72; PULSE 51
== END 2021-01-07 08:46 | disposition home or self-care (01) ==
LOC: ORWHC2ENDO 06:59
PROVIDERS: ATTEND Surgery
DX: Z12.11 Encounter for screening for malignant neoplasm of colon (principal); K21.9 Gastro-esophageal reflux disease without esophagitis; Z86.010 Personal history of colon polyps; E11.9 Type 2 diabetes mellitus without complications; E78.5 Hyperlipidemia, unspecified; I10 Essential (primary) hypertension; M19.90 Unspecified osteoarthritis, unspecified site; Z90.5 Acquired absence of kidney; Z85.72 Personal history of non-Hodgkin lymphomas; Z92.21 Personal history of antineoplastic chemotherapy; Z92.3 Personal history of irradiation; J98.4 Other disorders of lung; Z57.5 Occupational exposure to toxic agents in other industries; I08.9 Rheumatic multiple valve disease, unspecified; Z98.49 Cataract extraction status, unspecified eye; Z98.890 Other specified postprocedural states; Z83.3 Family history of diabetes mellitus; Z82.49 Family history of ischemic heart disease and other diseases of the circulatory system; Z82.3 Family history of stroke; Z87.891 Personal history of nicotine dependence; Z79.82 Long term (current) use of aspirin; Z79.4 Long term (current) use of insulin; Z79.890 Hormone replacement therapy; Z79.899 Other long term (current) drug therapy; Z88.0 Allergy status to penicillin
CPT/HCPCS: J2001; J2704; G0105; 45378

== ENCOUNTER → 2021-03-19 | Outpatient (CLI) | payer MEDICARE ==
[2021-03-19 15:34] LABS: Hemoglobin A1C 7.6 % (4.0-6.0)
[2021-03-20 00:16] LABS: Albumin 4.7 g/dL (3.80-4.90); Albumin/Globulin Ratio 2.35 (1.60-3.17); Anion Gap 8.7 mmol/L (4.00-12.00); Calcium 9.3 mg/dL (8.7-10.3); Carbon Dioxide 23.3 mmol/L (21.6-31.8); Chol/HDL Ratio 3.41; LDL Cholesterol,Calculated 76.8 mg/dL (0.0-131.0); Non-African American GFR(CKD) 73.3 (60.0-200.0); Potassium 4.8 mmol/L (3.5-5.5); Total Bilirubin 0.7 mg/dL (0.3-1.2); Total Protein 6.7 g/dL (6.2-8.2); VLDL Calculation 22.2 mg/dL (5.00-40.00)
[2021-03-20 05:58] LABS: Urine Creatinine 54.5 mg/dL
== END | disposition home or self-care (01) ==
LOC: LABWHC1 08:12
PROVIDERS: ATTEND Internal Medicine Endocrinology, Diabetes & Metabolism
DX: E11.65 Type 2 diabetes mellitus with hyperglycemia (principal); E78.2 Mixed hyperlipidemia
CPT/HCPCS: 36415; 80053; 80061; 82043; 82570; 83036; 84443

== ENCOUNTER 2021-04-14 05:57 | Day surgery (SDC) | payer MEDICARE ==
[~2021-04-14 05:57] MED LIST changes: +ALPRAZolam 0.25 MG TAB PO PRN; +ALPRAZolam 0.5 MG TAB PO PRN; +HEPARIN SODIUM,PORCINE 10,000 UNIT in SODIUM CHLORIDE 0.9% 1,000 ML IRRIGATION PRN; +HEPARIN SODIUM,PORCINE 2,500 UNIT in SODIUM CHLORIDE 0.9% 250 ML IRRIGATION PRN; -LACTATED RINGERS 1,000 ML IV SCH; -LIDOCAINE 1% (10MG/ML) FOR IV START INTRADERMA PRN; +NITROGLYCERIN SL TABS 0.4 MG TAB SUBLINGUAL PRN
[2021-04-14] MEDS: SODIUM CHLORIDE 0.9% 1,000 ML in EMPTY BAG 1 BAG IV SCH ×2 (06:20→18:01)
[2021-04-14 06:36] LABS: Glucose,Whole Blood 186 mg/dL (75-99)
[2021-04-14 06:43] LABS: Basophils # (A) 0.1 k/uL (0-0.2); Basophils % (A) 1 %; Eosinophils # (A) 0.4 k/uL (0-0.7); Eosinophils % (A) 4 %; HCT 40.3 % (39.0-53.0); HGB 14.1 gm/dL (13.0-17.5); Lymphocytes # (A) 3.3 k/uL (1.0-4.8); Lymphocytes % (A) 37 %; MCH 33.2 pg (25.0-35.0); MCHC 34.9 g/dL (31.0-37.0); MCV 95.2 fL (80.0-100.0); Mean Platelet Volume 7.6; Monocytes # (A) 0.7 k/uL (0-1.0); Monocytes % (A) 8 %; Neutrophils # (A) 4.4 k/uL (1.3-7.7); Neutrophils % (A) 49 %; Platelet Count 210 k/uL (150-450); RBC 4.24 m/uL (4.30-5.90); RDW 12.2 % (11.5-15.5); WBC 9.1 k/uL (3.8-10.6)
[2021-04-14] MEDS ORDERED: ATORVASTATIN 80 MG TAB PO ONE (07:00)
[2021-04-14] MEDS ORDERED: ASPIRIN 325 MG TAB PO ONE (07:00)
[2021-04-14] MEDS ORDERED: fentaNYL (PF) 50 MCG/ML 2 ML AMP ONE (07:01)
[2021-04-14] MEDS ORDERED: BENZOCAINE SPRAY 1 CAN MUCOUS MEM ONE (07:10)
[2021-04-14] MEDS ORDERED: VERAPAMIL 2.5 MG/ML 2 ML AMP ONE (07:11)
[2021-04-14] MEDS ORDERED: LIDOCAINE 1% INJ 10MG/ML (20 ML MDV) ONE (07:12)
[2021-04-14] MEDS ORDERED: fentaNYL (PF) 50 MCG/ML 2 ML AMP IV ONE (07:14)
[2021-04-14] MEDS ORDERED: MIDAZOLAM 2 MG/2 ML VIAL IV ONE (07:14)
[2021-04-14] MEDS ORDERED: LIDOCAINE 1% INJ 10MG/ML (20 ML MDV) SQ ONE (07:43)
[2021-04-14] MEDS ORDERED: HEPARIN SODIUM 1,000 UN/ML (10ML VL) ONE (07:44)
[2021-04-14] MEDS ORDERED: VERAPAMIL SYRINGE (5 MG/10 ML) INTRAARTER ONE (07:46)
[2021-04-14] MEDS: HEPARIN SODIUM 1,000 UN/ML (10ML VL) IVP ONE ×3 (07:52→08:07)
[2021-04-14] MEDS ORDERED: CLOPIDOGREL 75 MG TAB ONE ×2 (08:00→08:03)
[2021-04-14] MEDS ORDERED: CLOPIDOGREL 75 MG TAB PO ONE (08:10)
[2021-04-14] MEDS ORDERED: NITROGLYCERIN 1000MCG/10ML SYRINGE INTRACORON ONE (08:11)
[2021-04-14] MEDS ORDERED: IOPAMIDOL-370 125ML BTL INJ ONE (08:12)
[2021-04-14] MEDS ORDERED: IOPAMIDOL-300 100ML BTL INJ ONE (08:32)
[2021-04-14] MEDS ORDERED: ZOLPIDEM 5 MG TAB PO PRN (08:52)
[2021-04-14] MEDS ORDERED: MAG HYDROX/AL HYDROX/SIMETH 30 ML CUP PO PRN (08:52)
[2021-04-14] MEDS ORDERED: NITROGLYCERIN SL TABS 0.4 MG TAB SUBLINGUAL PRN (08:52)
[2021-04-14] MEDS ORDERED: RX INFO: IV CONTRAST WAS GIVEN 1 EACH MISC MISCELLANE PRN (08:52)
[2021-04-14] MEDS ORDERED: ATROPINE SULFATE 0.1 MG/ML 10ML SYRINGE IV PRN (08:52)
[2021-04-14] MEDS ORDERED: SODIUM CHLORIDE 0.9% 1,000 ML IV SCH (09:00)
[2021-04-14 12:07] LABS: Glucose,Whole Blood 262 mg/dL (75-99)
--- NOTE | 2021-04-14 12:57 | ECHOT ---
TRANSESOPHAGEAL ECHOCARDIOGRAM INDICATION: Evaluation of aortic valve. PROCEDURE: After explaining the procedure to the patient, its risks and the complications, blood pressure, heart rate, O2 saturation were monitored. The throat was sprayed with Cetacaine. He received 2 mg intravenous Versed, 50 mcg intravenous fentanyl. The probe was introduced into the esophagus without difficulty. Images were obtained. Following that, the probe was removed. There were no immediate complications. FINDINGS: Left atrial size is mildly dilated. Left ventricular size and systolic function are normal. The aortic valve is a tricuspid valve with preserved opening and thickening of the cusp. The mitral valve revealed mild calcification. The tricuspid valve is normal. Descending thoracic aorta appears to be normal. The ascending aorta size is normal. No pericardial effusion was noted. Contrast bubble study revealed no shunting across the interatrial septum. Doppler pulse wave and color Doppler obtained and revealed moderate severe central aortic regurgitation with mild tricuspid and mitral regurgitation. There was no shunting by color Doppler study. CONCLUSION: 1. Mildly dilated left atrium. 2. Normal left ventricular size and systolic function. 3. Thickened tricuspid aortic valve with preserved opening and moderate severe central aortic regurgitation. 4. Mild mitral and tricuspid regurgitation. 5. No shunting across the interatrial septum. 6. Normal appearance of the descending thoracic aorta. MMODL / IJN: [id number] /
--- NOTE | 2021-04-14 13:44 | CC ---
CARDIAC CATHETERIZATION REPORT Mr. Eastman is a 76-year-old male with known history of hypertension, hyperlipidemia, diabetes mellitus, who has been complaining of significant progression of dyspnea. He has a known history of coronary artery disease and because of his symptoms and his presentation recommendation was made regarding cardiac catheterization. The procedure as well as the risks and the complications were discussed with the patient who is in full understanding and agreement. PROCEDURE DETAILS: The patient was brought to director of cath lab in a fasting semisedated state after receiving fentanyl and Benadryl and achieving moderate conscious sedated state. Using Xylocaine anesthesia and Seldinger technique, a 6-Barbadian sheath was introduced in the right radial artery. Selective right and left coronary angiography performed using 5-Barbadian 4 bend right Nelson and 3 and a half bend left Nelson catheter. Multiple views of the coronary arteries including hemiaxial views were obtained. Following that, angioplasty and stenting was performed. Following that, a 5-Barbadian tight pigtail catheter was introduced into the left ventricle and left ventricular end-diastolic pressure was calculated. Following that, an ROBERT view of the ascending aorta was performed. Following that, catheter and sheath were removed. Hemostasis was obtained with deployment of a TR band. There was no immediate complication. Patient is returned to his room in stable condition. FINDINGS: FLUOROSCOPY: There was calcification involving the proximal LAD. CORONARY ANGIOGRAPHY FINDINGS: LEFT MAIN: This is a short size vessel, bifurcating into left circumflex, left anterior descending coronary artery, left main coronary artery has no evidence of high-grade stenosis. LEFT ANTERIOR DESCENDING CORONARY ARTERY: This is a large-sized vessel reaching toward the apex with a wraparound the apex segment giving rise to two diagonal branches. The proximal LAD has an eccentric 99% stenosis. There is another 50% plaque in the mid LAD at the takeoff of the second diagonal branch. The rest of the vessel has mild intimal disease without any evidence of high-grade stenosis. LEFT CIRCUMFLEX: This is a large nondominant vessel giving rise to 2 obtuse marginal branches. The first obtuse marginal branch has diffuse intimal disease of 50 to 60%. There is another plaque distal to the takeoff of the first obtuse marginal branch of about 40%. The rest of the vessel has no high-grade stenosis. RIGHT CORONARY ARTERY: This is a large dominant vessel bifurcating into PDA and posterolateral segment and branches. The right coronary artery has mild diffuse intimal disease of 20% to 30% in the proximal mid and distal segment. The rest of the vessel has no high-grade stenosis. LEFT VENTRICULOGRAM: Left ventriculogram is not performed. AORTOGRAM: Aortogram was performed in the ROBERT view and revealed 3 to 4+ aortic regurgitation and a tricuspid aortic valve. HEMODYNAMICS: There was no gradient across the aortic valve. The left ventricular end-diastolic pressure was 24-28 mmHg. CONCLUSION: 1. Critical stenosis involving the proximal left anterior descending artery. 2. Moderate disease in the first obtuse marginal branch with mild to moderate disease in the mid left circumflex and the in the right coronary artery. 3. Three to 4+ aortic regurgitation. RECOMMENDATION: In view of findings and anatomy, I recommend proceeding with angioplasty and stenting of the LAD. The procedure as well as the risks and the complications were discussed with the patient who is in full understanding and agreement. ERIC / CHUCK: [id number] /
--- NOTE | 2021-04-14 13:51 | LTR ---
DATE OF SERVICE: 04/14/[address] Feldman: I had the pleasure of performing cardiac catheterization and coronary angioplasty and stenting on Mr. Eastman at [facility] on April 14 and a full copy of procedure note will be forwarded to you. In brief, he was found to have critical stenosis involving the proximal LAD and underwent successful stenting of that vessel. He was also found at the same time to have 3 to 4+ aortic regurgitation and that will be followed closely. I will keep you updated on his progress. Thank you again for allowing me to participate in his care. Please feel free to call for any questions. Sincerely yours, MMODL / IJN: [id number] /
--- NOTE | 2021-04-14 13:51 | PTCA ---
PERCUTANEOUSTRANS CORORONARY ANGIOGRAPHY Mr. Eastman is a 76-year-old male who has been complaining of significant progression of dyspnea on exertion. Underwent cardiac catheterization and was found to have critical stenosis involving the proximal LAD. In view of that, recommendation was made regarding angioplasty and stenting, the procedure as well as the risks and the complications were discussed with the patient who is in full understanding and agreement. PROCEDURE DETAILS: A 6-Hebrew EBU 3.75 guiding catheter was introduced into the system. After cannulating the left main, a 0.014 balanced medium weight J-wire was advanced across the lesion, positioned distal LAD. Subsequently, a 2.75 x 12 mm NC Trek balloon was advanced and one inflation at 8 atmospheres was done. Following that, the balloon was removed and a 3.0 x 18 mm Xience Skypoint stent was advanced, deployed and postdilated at 16 atmospheres. After removing the balloon, an intravascular ultrasound [place] [facility] catheter was introduced and imaging was obtained. Following that, the catheter was removed and a 3.25 x 15 mm NC Trek balloon was advanced and one inflation at 12 atmospheres was done. After the last inflation, after appropriate wait, the balloon and the guidewire were withdrawn back in the guiding catheter. Images were obtained and repeated. Those images reveal stable successful stenting. At that point, the guiding catheter, the balloon and the guidewire were removed. Left ventricle end- diastolic pressure and aortogram was performed. Following that, catheter and sheath were removed. Hemostasis was obtained with deployment of a TR band. There was no immediate complication. Patient was returned to his room in stable condition. Of note, the patient received oral loading dose of clopidogrel as well as a total of 9000 units of intravenous heparin throughout the procedure. His ACT was followed. He had EKG changes with the inflations that resolved at the end of the procedure. He had no significant chest pain. RESULTS: Successful stenting of the proximal LAD with reduction of stenosis from 99% to 0%. RECOMMENDATIONS: Patient will be continued on aspirin, Plavix, beta jorje, TALHA inhibitor. The importance of dual antiplatelet treatment was discussed with the patient and his family who is in full understanding and agreement. The aortic regurgitation will be followed closely. MMODL / IJN: [id number] /
--- NOTE | 2021-04-14 13:57 | PTCA ---
PERCUTANEOUSTRANS CORORONARY ANGIOGRAPHY ADDENDUM: Duration of sedation: 52 minutes. ERIC / CHUCK: [id number] /
[2021-04-14 15:06] VITALS: BMI 27.3
[2021-04-14 16:00] VITALS: RESP 16
[2021-04-14 17:14] LABS: Glucose,Whole Blood 155 mg/dL (75-99)
[2021-04-14] MEDS: INSULIN ASPART (NovoLOG) 100 UNIT/ML VIAL SQ SCH ×2 (18:01→22:12)
[2021-04-14 19:52] LABS: Glucose,Whole Blood 279 mg/dL (75-99)
[2021-04-14] MEDS: METOPROLOL TARTRATE 25 MG TAB PO SCH (22:05)
[2021-04-14] MEDS: REPAGLINIDE 1 MG TAB PO SCH (22:05)
[2021-04-15 05:23] VITALS: TEMP 97.9
[2021-04-15 07:40] LABS: Glucose,Whole Blood 160 mg/dL (75-99)
[2021-04-15 07:43] LABS: African American GFR (CKD) >90 (>60 ml/min/1.73 sqM); Anion Gap 8 mmol/L; Blood Urea Nitrogen 12 mg/dL (9-20); Calcium 9.5 mg/dL (8.4-10.2); Carbon Dioxide 24 mmol/L (22-30); Chloride 108 mmol/L (98-107); Glucose 134 mg/dL (74-99); Non-African American GFR(CKD) >90 (>60 ml/min/1.73 sqM); Potassium 4.4 mmol/L (3.5-5.1); Sodium 140 mmol/L (137-145)
[2021-04-15 07:54] VITALS: BP 159/65; PULSE 63
[2021-04-15] MEDS: METOPROLOL TARTRATE 25 MG TAB PO SCH (07:59)
[2021-04-15] MEDS: REPAGLINIDE 1 MG TAB PO SCH (07:59)
[2021-04-15] MEDS ORDERED: CLOPIDOGREL 75 MG TAB PO SCH (09:00)
[2021-04-15] MEDS ORDERED: lisinopriL 10 MG TAB PO SCH (09:00)
[2021-04-15] MEDS ORDERED: INSULIN DETEMIR (LEVEMIR) 100 UNIT/ML SYR SQ SCH (09:00)
[2021-04-15] MEDS ORDERED: ASPIRIN 81 MG PO SCH (09:00)
[2021-04-15] MEDS ORDERED: ATORVASTATIN 20 MG TAB PO SCH (09:00)
--- NOTE | 2021-04-15 11:35 | PN ---
PROGRESS NOTE Mr. Eastman is a 76-year-old male who presented with progressive dyspnea on exertion, was found to have critical stenosis involving the proximal LAD and underwent stenting of that vessel. He is doing well this morning. He is denying any chest pain. No dizziness. No palpitations. No nausea. He continues to be on aspirin once a day, Plavix 75 mg daily, Lipitor 20 mg daily, insulin, lisinopril 10 mg daily, metoprolol tartrate 25 mg twice a day, Prandin 1 mg twice a day. PHYSICAL EXAMINATION: Blood pressure 146/60 with a heart rate in the 60s. LUNGS: Clear. HEART: Regular rate and rhythm. S1, S2. No S3, with systolic murmur at the base and a diastolic murmur. No rub. ABDOMEN: Soft nontender. EXTREMITIES: No edema. IMPRESSION: 1. Status post stenting of the LAD. 2. Moderate to severe aortic regurgitation. 3. Hypertension. 4. Hyperlipidemia. 5. Diabetes mellitus. RECOMMENDATIONS: Patient will be discharged home today and followed as an outpatient in regard to his aortic valve disease. MMODL / IJN: [id number] /
== END 2021-04-15 09:36 | disposition home or self-care (01) ==
LOC: CATHCVL 05:57 → 6NMEDSUR 08:33 → CATHCVL 04-15 09:36
PROVIDERS: ATTEND Internal Medicine Interventional Cardiology
DX: I35.1 Nonrheumatic aortic (valve) insufficiency (principal); E11.9 Type 2 diabetes mellitus without complications; E78.5 Hyperlipidemia, unspecified; I10 Essential (primary) hypertension; Z95.5 Presence of coronary angioplasty implant and graft; Z20.822 Contact with and (suspected) exposure to COVID-19
CPT/HCPCS: 93458; 93312; 93320; 93325; 93567; 80048; 85025; 87635; C9600; C1769 ×2; C1887; C1894; C1725 ×2; C1753; C1874; J2250; J2001; J3010; J1644; Q9967 ×2

== ENCOUNTER → 2021-06-09 | Outpatient (CLI) | payer MEDICARE ==
[2021-06-09 12:53] LABS: BUN/Creat Ratio 21.42 Ratio (12.00-20.00)
[2021-06-09 12:54] LABS: ALT 26 U/L (10-49); AST 18 U/L (14-35); Albumin 4.6 g/dL (3.8-4.9); Albumin/Globulin Ratio 2.25 (1.60-3.17); Alkaline Phosphatase 36 U/L (41-126); Blood Urea Nitrogen 18.1 mg/dL (9.0-27.0); Calcium 9.6 mg/dL (8.7-10.3); Carbon Dioxide 22.7 mmol/L (20.0-27.5); Chloride 103 mmol/L (96-109); Chol/HDL Ratio 3.17 Ratio; Glucose 198 mg/dL (70-110); LDL Cholesterol,Calculated 70.8 mg/dL (0.0-131.0); Non-African American GFR(CKD) 85.4 (60.0-200.0); Potassium 4.6 mmol/L (3.5-5.5); Sodium 137 mmol/L (135-145); Total Protein 6.6 g/dL (6.2-8.2)
== END | disposition home or self-care (01) ==
LOC: LABWHC1 07:54
PROVIDERS: ATTEND Nurse Practitioner Adult Health
DX: I10 Essential (primary) hypertension (principal); E78.2 Mixed hyperlipidemia
CPT/HCPCS: 36415; 80053; 80061

== ENCOUNTER → 2022-06-21 | Outpatient (CLI) | payer MEDICARE ==
[2022-06-21 14:56] LABS: ALT 34 U/L (10-49); AST 22 U/L (14-35); African American GFR (CKD) 100.6 (60.0-200.0); Albumin 4.7 g/dL (3.8-4.9); Albumin/Globulin Ratio 2.47 (1.60-3.17); Alkaline Phosphatase 35 U/L (41-126); Blood Urea Nitrogen 14.8 mg/dL (9.0-27.0); Calcium 9.7 mg/dL (8.7-10.3); Carbon Dioxide 25.2 mmol/L (20.0-27.5); Chloride 105 mmol/L (96-109); Chol/HDL Ratio 2.78 Ratio; Globulin 1.9 g/dL (1.6-3.3); Glucose 166 mg/dL (70-110); LDL Cholesterol,Calculated 60.8 mg/dL (0.0-131.0); Non-African American GFR(CKD) 86.8 (60.0-200.0); Potassium 4.9 mmol/L (3.5-5.5); Sodium 140 mmol/L (135-145); Total Protein 6.6 g/dL (6.2-8.2)
== END | disposition home or self-care (01) ==
LOC: LABWHC1 08:13
PROVIDERS: ATTEND Nurse Practitioner Adult Health
DX: I10 Essential (primary) hypertension (principal); E78.2 Mixed hyperlipidemia
CPT/HCPCS: 36415; 80053; 80061

== ENCOUNTER → 2022-12-19 | Outpatient (CLI) | payer MEDICARE ==
[2022-12-19 22:27] LABS: Urine Creatinine 44.5 mg/dL (39.0-259.0)
[2022-12-20 18:17] LABS: ALT 34 U/L (10-49); AST 23 U/L (14-35); Albumin 4.6 d/dL (3.8-4.9); Albumin/Globulin Ratio 2.42 Ratio (1.60-3.17); Alkaline Phosphatase 36 U/L (41-126); BUN/Creat Ratio 15.78 Ratio (12.00-20.00); Blood Urea Nitrogen 14.2 mg/dL (9.0-27.0); Calcium 9.8 mg/dL (8.7-10.3); Carbon Dioxide 23.8 mmol/L (21.6-31.8); Chloride 104 mmol/L (96-109); Chol/HDL Ratio 3.04 Ratio; Globulin 1.9 d/dL (1.6-3.3); Glucose 160 mg/dL (70-110); LDL Cholesterol,Calculated 58.8 mg/dL (0.0-131.0); Potassium 4.8 mmol/L (3.5-5.5); Sodium 140 mmol/L (135-145); Total Bilirubin 0.5 mg/dL (0.3-1.2); Total Protein 6.5 d/dL (6.2-8.2)
== END | disposition home or self-care (01) ==
LOC: LABWHC1 08:39
PROVIDERS: ATTEND Internal Medicine Endocrinology, Diabetes & Metabolism
DX: E11.65 Type 2 diabetes mellitus with hyperglycemia (principal)
CPT/HCPCS: 36415; 80053; 80061; 82043; 82570; 83036; 84443

== ENCOUNTER → 2023-11-22 | Outpatient (CLI) | payer MEDICARE ==
[2023-11-22 15:06] LABS: ALT 32 U/L (10-49); AST 22 U/L (14-35); Albumin 4.6 g/dL (3.8-4.9); Albumin/Globulin Ratio 2.19 Ratio (1.60-3.17); Alkaline Phosphatase 36 U/L (41-126); Blood Urea Nitrogen 15.9 mg/dL (9.0-27.0); Calcium 9.6 mg/dL (8.7-10.3); Carbon Dioxide 24.6 mmol/L (21.6-31.8); Chloride 104 mmol/L (96-109); Chol/HDL Ratio 2.69 Ratio; Globulin 2.1 g/dL (1.6-3.3); Glucose 234 mg/dL (70-110); LDL Cholesterol,Calculated 52.8 mg/dL (0.0-131.0); Potassium 4.4 mmol/L (3.5-5.5); Sodium 139 mmol/L (135-145); Total Bilirubin 0.7 mg/dL (0.3-1.2); Total Protein 6.7 g/dL (6.2-8.2)
== END | disposition home or self-care (01) ==
LOC: LABWHC1 08:44
PROVIDERS: ATTEND Internal Medicine Interventional Cardiology
DX: E78.2 Mixed hyperlipidemia (principal)
CPT/HCPCS: 36415; 80053; 80061

== ENCOUNTER → 2023-12-08 | Outpatient (CLI) | payer MEDICARE ==
[2023-12-08 11:26] LABS: Chol/HDL Ratio 2.49 Ratio; LDL Cholesterol,Calculated 50.9 mg/dL (0.0-131.0)
[2023-12-08 11:27] LABS: ALT 28 U/L (10-49); AST 23 U/L (14-35); Albumin 4.6 g/dL (3.8-4.9); Alkaline Phosphatase 36 U/L (41-126); BUN/Creat Ratio 15.56 Ratio (12.00-20.00); Calcium 9.3 mg/dL (8.7-10.3); Carbon Dioxide 23.7 mmol/L (21.6-31.8); Chloride 106 mmol/L (96-109); Glucose 168 mg/dL (70-110); Potassium 4.1 mmol/L (3.5-5.5); Sodium 141 mmol/L (135-145); Total Bilirubin 0.6 mg/dL (0.3-1.2); Total Protein 6.6 g/dL (6.2-8.2)
[2023-12-08 20:48] LABS: Urine Creatinine 53.5 mg/dL (39.0-259.0)
== END | disposition home or self-care (01) ==
LOC: LABWHC1 07:30
PROVIDERS: ATTEND Internal Medicine Endocrinology, Diabetes & Metabolism
DX: E11.65 Type 2 diabetes mellitus with hyperglycemia (principal)
CPT/HCPCS: 36415; 80053; 80061; 82043; 82570; 83036; 84443

== ENCOUNTER 2024-01-06 15:18 | Observation (INO) | payer MEDICARE ==
[2024-01-06] MEDS: NITROGLYCERIN SL TABS 0.4 MG TAB SUBLINGUAL STA (16:23)
[2024-01-06] MEDS: ASPIRIN 81 MG PO STA (16:24)
[2024-01-06] MEDS: SODIUM CHLORIDE 0.9% 1,000 ML IV STA (16:27)
[2024-01-06 16:35] LABS: Basophils % (A) 0 %; Eosinophils # (A) 0.2 k/uL (0-0.7); Eosinophils % (A) 2 %; HCT 37.3 % (39.0-53.0); HGB 12.4 gm/dL (13.0-17.5); Lymphocytes # (A) 1.8 k/uL (1.0-4.8); Lymphocytes % (A) 16 %; MCH 33.1 pg (25.0-35.0); MCHC 33.2 g/dL (31.0-37.0); MCV 99.5 fL (80.0-100.0); Mean Platelet Volume 8.5; Monocytes # (A) 0.8 k/uL (0-1.0); Monocytes % (A) 7 %; Neutrophils # (A) 8.5 k/uL (1.3-7.7); Neutrophils % (A) 74 %; Platelet Count 190 k/uL (150-450); RBC 3.75 m/uL (4.30-5.90); RDW 12.6 % (11.5-15.5); WBC 11.6 k/uL (3.8-10.6)
[2024-01-06 16:57] LABS: Prothrombin Time 10.6 sec (10.0-12.5)
[2024-01-06 17:02] LABS: ALT 30 U/L (4-49); AST 29 U/L (17-59); African American GFR (CKD) >90 (>60 ml/min/1.73 sqM); Albumin 4.2 g/dL (3.5-5.0); Alkaline Phosphatase 31 U/L (38-126); Anion Gap 6 mmol/L; Blood Urea Nitrogen 17 mg/dL (9-20); Calcium 9.3 mg/dL (8.4-10.2); Carbon Dioxide 24 mmol/L (22-30); Chloride 106 mmol/L (98-107); Glucose 247 mg/dL (74-99); Lipase 680 U/L (23-300); Magnesium 1.7 mg/dL (1.6-2.3); Non-African American GFR(CKD) 88 (>60 ml/min/1.73 sqM); Potassium 4.8 mmol/L (3.5-5.1); Sodium 136 mmol/L (137-145); Total Bilirubin 0.9 mg/dL (0.2-1.3); Total Protein 6.3 g/dL (6.3-8.2)
[2024-01-06 17:08] LABS: NT-Pro-B-Type Natriuretic Pept 462 pg/mL
--- NOTE | 2024-01-06 17:12 | ED ---
General Adult HPI - General Chief complaint: Chest Pain Stated complaint: chest pain, L shoulder pain Time Seen by Provider: 01/06/24 15:51 Source: patient, RN notes reviewed, old records reviewed Mode of arrival: ambulatory Limitations: no limitations - History of Present Illness Initial comments: Patient is a 78-year-old male who presents emergency department complaining of chest pain. States it started this morning originally in his left shoulder and has since started to radiate towards his sternum. Currently is only substernal in nature. Patient denies a current pain is a pressure that is worse with deep inspiration. Located over the upper sternum.States is worse with some deep breaths and. Denies any abdominal pain. Denies any shortness of breath. States the pain is worse with exertion. Denies nausea or vomiting or diaph oresis. Presents for further evaluation at this time. Past medical history includes cardiac stent, CAD, diabetes, hypertension, hyperlipidemia. Currently resting comfortably at this time. - Related Data Home Medications Medication Instructions Recorded Confirmed Multivitamin [Men's Multi-Vitamin] 1 tab PO DAILY 04/24/15 01/06/24 Vitamin B Complex 1 cap PO DAILY 04/24/15 01/06/24 lisinopriL [Zestril] 10 mg PO DAILY 04/24/15 01/06/24 metFORMIN HCL [Glucophage] 1,000 mg PO BID 04/24/15 01/06/24 Insulin Glargine,Hum.rec.anlog 70 units SQ DAILY 12/07/15 01/06/24 [Robin Blanton] Aspirin EC [Ecotrin Low Dose] 81 mg PO DAILY 04/03/18 01/06/24 Metoprolol Tartrate [Lopressor] 12.5 mg PO BID 01/05/21 01/06/24 Ketoconazole 2% Cream [Nizoral 2%] 1 applic TOPICAL DAILY 01/06/24 01/06/24 Repaglinide [Prandin] 0.5 mg PO BID 01/06/24 01/06/24 Rosuvastatin [Crestor] 20 mg PO DAILY 01/06/24 01/06/24 Allergies Allergy/AdvReac Type Severity Reaction Status Date / Time amoxicillin AdvReac Diarrhea Verified 01/06/24 16:43 Review of Systems ROS Statement: Those systems with pertinent positive or pertinent negative responses have been documented in the HPI. Review of Systems: CONST: Denies fever EYES: Denies blurry vision ENT: Denies nasal congestion C/V: Denies Chest pain RESP: Denies shortness of breath GI: Denies abdominal pain : Denies dysuria SKIN: Denies rash. MSK: Denies joint pain. NEURO: Denies headache ROS Other: All systems not noted in ROS Statement are negative. 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 from past job, "leaky valves", spinal stenosis History of Any Multi-Drug Resistant Organisms: None Reported Past Surgical History: Heart Catheterization, Hernia Repair Additional Past Surgical History / Comment(s): lymph node removed,surg for un descended testicles as teen, colonoscopies, GABI FUNDOPLASTY, EGD, cataracts removed, laser surg for glaucoma,back surgery Past Anesthesia/Blood Transfusion Reactions: No Reported Reaction Past Psychological History: No Psychological Hx Reported Smoking Status: Never smoker Past Alcohol Use History: None Reported Past Drug Use History: None Reported - Past Family History Father Family Medical History: Diabetes Mellitus, Hypertension Additional Family Medical History / Comment(s): abdominal Aneurysm Brother(s) Family Medical History: CVA/TIA Mother Family Medical History: No Reported History General Exam - General Exam Comments Initial Comments: General: Appears in no acute distress. HEAD: Normal with no signs of head trauma. EYES: PERRLA, EOMI, conjunctiva normal, no discharge. ENT: Hearing grossly intact, normal oropharynx. RESPIRATORY: Clear breath sounds bilaterally. No wheezes, rales, or rhonchi. C/V: Regular rate and rhythm. S1 and S2 auscultated, no edema, peripheral pulses 2+ and intact throughout. Chest pain not reproducible on palpation. ABD: Abd is soft, nontender, nondistended EXT: Normal range of motion, no obvious deformity SKIN: No rashes or lesions observed on exposed skin. NEURO: Alert and oriented x 4. Limitations: no limitations Course Vital Signs 07/06/24 07/06/24 07/06/24 15:25 16:22 18:31 Temperature 98.2 F Pulse Rate 68 71 63 Respiratory 18 20 16 Rate Blood Pressure 156/68 122/63 121/64 O2 Sat by Pulse 97 97 97 Oximetry 01/06/24 01/06/24 01/06/24 19:57 20:29 21:19 Temperature 97.8 F Pulse Rate 65 67 Respiratory 20 20 18 Rate Blood Pressure 123/66 130/65 O2 Sat by Pulse 95 989 H Oximetry Medical Decision Making - Medical Decision Making Was pt. sent in by a medical professional or institution (, PA, GAS STOVE SERVICER HELPER, urgent care, hospital, or shelter...) When possible be specific @ -No Did you speak to anyone other than the patient for history (EMS, parent, family, police, friend...)? What history was obtained from this source @ -No Did you review nursing and triage notes (agree or disagree)? Why? @ -I reviewed and agree with nursing and triage notes Were old charts reviewed (outside hosp., previous admission, EMS record, old EKG, old radiological studies, urgent care reports/EKG's, shelter records)? Report findings @ -Old charts reviewed including prior EKG from April 2021 which shows no significant change when compared with today's. Differential Diagnosis (chest pain, altered mental status, abdominal pain women, abdominal pain men, vaginal bleeding, weakness, fever, dyspnea, syncope, headache, dizziness, GI bleed, back pain, seizure, CVA, palpatations, mental health, musculoskeletal)? @ -Differential Chest Pain: Stable Angina, Unstable Angina, STEMI, NSTEMI Aortic Dissection, Pneumothorax, Musculoskeletal, Esophageal Spasm GERD, Cholecystitis, Pancreatitis, Zoster, this is not meant to be an all-inclusive list. EKG interpreted by me (3pts min.). @ -As above X-rays interpreted by me (1pt min.). @ -Chest x-ray reveals no obvious acute cardiopulmonary process. CT interpreted by me (1pt min.). @ -CT abdomen pelvis reveals no evidence of pancreatitis. It does show a left lower lobe pulmonary nodule. U/S interpreted by me (1pt. min.). @ -None done What testing was considered but not performed or refused? (CT, X-rays, U/S, labs)? Why? @ -None What meds were considered but not given or refused? Why? @ -None Did you discuss the management of the patient with other professionals (professionals i.e. , PA, GAS STOVE SERVICER HELPER, lab, RT, psych nurse, high school social science teacher, wind up worker, teacher, rating officer, case repairer)? Give summary @ -Discussed with Dr. Bey of [facility] who accepted the admission. Was smoking cessation discussed for >3mins.? @ -No Was critical care preformed (if so, how long)? @ -No Were there social determinants of health that impacted care today? How? (Homelessness, low income, unemployed, alcoholism, drug addiction, transportation, low edu. Level, literacy, decrease access to med. care, fci, rehab)? @ -No Was there de-escalation of care discussed even if they declined (Discuss DNR or withdrawal of care, Hospice)? DNR status @ -No What co-morbidities impacted this encounter? (DM, HTN, Smoking, COPD, CAD, Cancer, CVA, ARF, Chemo, Hep., AIDS, mental health diagnosis, sleep apnea, morbid obesity)? @ -CAD, prior cardiac stent Was patient admitted / discharged? Hospital course, mention meds given and route, prescriptions, significant lab abnormalities, going to OR and other pertinent info. @ -Patient presents emergency department complaining of somewhat pleuritic substernal chest pain. Has a history of cardiac stenting. Currently is relatively asymptomatic but it was worse earlier. Vital signs within acceptable limits. Patient be symptomatically treated with aspirin, 1 L fluid bolus. Will obtain cardiac workup. He was in agreement this plan. 2 EKGs show no evidence of acute ischemia. No significant change when compared with EKG from 2020.Patient's laboratory studies returned remarkable for elevated lipase of 688. Troponin is undetectable. D-dimer is age-adjusted within acceptable limits. Remainder the labs unremarkable. Chest x-ray showed no signs of acute cardiopulmonary process. Due to the elevated pancreas enzymes I did recommend CT abdomen pelvis which she was in agreement with. Patient currently has no chest discomfort. CT shows a pulmonary nodule which appears to be chronic. I did update the pat ient regarding this and he was told he has scarring. But he was in agreement with outpatient follow-up regarding this. He remains pain-free at this time but I did recommend admission as heart score is moderate for his chest pain he was having. He was in agreement this plan. Cardiology consulted. Echo ordered. Discussed with Dr. Bey of [facility] who accepted the admission. Undiagnosed new problem with uncertain prognosis? @ -No Drug Therapy requiring intensive monitoring for toxicity (Heparin, Nitro, Insulin, Cardizem)? @ -No Were any procedures done? @ -No Diagnosis/symptom? @ -Chest pain Acute, or Chronic, or Acute on Chronic? @ -Acute Uncomplicated (without systemic symptoms) or Complicated (systemic symptoms)? @ -Complicated Side effects of treatment? @ -None Exacerbation, Progression, or Severe Exacerbation] @ -No Poses a threat to life or bodily function? @ -Yes - Lab Data Result diagrams: 01/06/24 16:06 01/06/24 16:06 Lab Results 01/06/24 01/06/24 01/06/24 Range/Units 16:06 16:06 16:06 WBC 11.6 H (3.8-10.6) k/uL RBC 3.75 L (4.30-5.90) m/uL Hgb 12.4 L (13.0-17.5) gm/dL Hct 37.3 L (39.0-53.0) % MCV 99.5 (80.0-100.0) fL MCH 33.1 (25.0-35.0) pg MCHC 33.2 (31.0-37.0) g/dL RDW 12.6 (11.5-15.5) % Plt Count 190 (150-450) k/uL MPV 8.5 Neutrophils % 74 % Lymphocytes % 16 % Monocytes % 7 % Eosinophils % 2 % Basophils % 0 % Neutrophils # 8.5 H (1.3-7.7) k/uL Lymphocytes # 1.8 (1.0-4.8) k/uL Monocytes # 0.8 (0-1.0) k/uL Eosinophils # 0.2 (0-0.7) k/uL Basophils # 0.0 (0-0.2) k/uL PT 10.6 (10.0-12.5) sec INR 1.0 (<1.2) APTT 24.0 (22.0-30.0) sec D-Dimer 0.62 H (<0.60) mg/L FEU Sodium 136 L (137-145) mmol/L Potassium 4.8 (3.5-5.1) mmol/L Chloride 106 (98-107) mmol/L Carbon Dioxide 24 (22-30) mmol/L Anion Gap 6 mmol/L BUN 17 (9-20) mg/dL Creatinine 0.77 (0.66-1.25) mg/dL Est GFR (CKD-EPI)AfAm >90 (>60 ml/min/1.73 sqM) Est GFR (CKD-EPI)NonAf 88 (>60 ml/min/1.73 sqM) Glucose 247 H (74-99) mg/dL Calcium 9.3 (8.4-10.2) mg/dL Magnesium 1.7 (1.6-2.3) mg/dL Total Bilirubin 0.9 (0.2-1.3) mg/dL AST 29 (17-59) U/L ALT 30 (4-49) U/L Alkaline Phosphatase 31 L (38-126) U/L Troponin I (0.000-0.034) ng/mL NT-Pro-B Natriuret Pep 462 pg/mL Total Protein 6.3 (6.3-8.2) g/dL Albumin 4.2 (3.5-5.0) g/dL Lipase 680 H (23-300) U/L 01/06/24 Range/Units 16:06 WBC (3.8-10.6) k/uL RBC (4.30-5.90) m/uL Hgb (13.0-17.5) gm/dL Hct (39.0-53.0) % MCV (80.0-100.0) fL MCH (25.0-35.0) pg MCHC (31.0-37.0) g/dL RDW (11.5-15.5) % Plt Count (150-450) k/uL MPV Neutrophils % % Lymphocytes % % Monocytes % % Eosinophils % % Basophils % % Neutrophils # (1.3-7.7) k/uL Lymphocytes # (1.0-4.8) k/uL Monocytes # (0-1.0) k/uL Eosinophils # (0-0.7) k/uL Basophils # (0-0.2) k/uL PT (10.0-12.5) sec INR (<1.2) APTT (22.0-30.0) sec D-Dimer (<0.60) mg/L FEU Sodium (137-145) mmol/L Potassium (3.5-5.1) mmol/L Chloride (98-107) mmol/L Carbon Dioxide (22-30) mmol/L Anion Gap mmol/L BUN (9-20) mg/dL Creatinine (0.66-1.25) mg/dL Est GFR (CKD-EPI)AfAm (>60 ml/min/1.73 sqM) Est GFR (CKD-EPI)NonAf (>60 ml/min/1.73 sqM) Glucose (74-99) mg/dL Calcium (8.4-10.2) mg/dL Magnesium (1.6-2.3) mg/dL Total Bilirubin (0.2-1.3) mg/dL AST (17-59) U/L ALT (4-49) U/L Alkaline Phosphatase (38-126) U/L Troponin I <0.012 (0.000-0.034) ng/mL NT-Pro-B Natriuret Pep pg/mL Total Protein (6.3-8.2) g/dL Albumin (3.5-5.0) g/dL Lipase (23-300) U/L - EKG Data -: EKG Interpreted by Me EKG Comments: 12-lead Electrocardiogram Interpretation Note EKG was reviewed and interpreted by myself. 12-lead ECG performed at 1538 is interpreted by me as revealing normal sinus rhythm with first-degree AV block at a rate of 72 beats per minute. [place] is normal. NH interval is 226 ms, QRS duration is 97 ms, QTc is 414 ms.. There were no ST or T wave abnormalities to suggest myocardial ischemia or injury. R wave progression across the precordium was satisfactory. By my interpretation this EKG is non-diagnostic for acute isc hemia. 12-lead Electrocardiogram Interpretation Note EKG was reviewed and interpreted by myself. 12-lead ECG performed at 1656 is interpreted by me as revealing normal sinus rhythm with first-degree AV block at a rate of 66 beats per minute. [place] is normal. NH interval is 210 ms, QRS duration is 95 ms, QTc is 415 ms.. There were no ST or T wave abnormalities to suggest myocardial ischemia or injury. R wave progression across the precordium was satisfactory. By my interpretation this EKG is non-diagnostic for acute ischemia. No dynamic changes when compared with EKG from earlier. Disposition Clinical Impression: Chest pain, Elevated lipase Disposition: ADMITTED IP TO THIS HOSP Condition: Stable Time of Disposition: 19:00
--- NOTE | 2024-01-06 17:26 | XR ---
EXAMINATION TYPE: XR chest 2V DATE OF EXAM: 01/06/2024 5:01 PM CLINICAL INDICATION:Male, 78 years old with history of Chest Pain; COMPARISON: Chest radiographs from 03/01/2019 TECHNIQUE: XR chest 2V Frontal view of the chest. FINDINGS: Lungs/Pleura: There is no evidence of pleural effusion, focal consolidation, or pneumothorax. Pulmonary vascularity: Unremarkable. Heart/mediastinum: Cardiomediastinal silhouette is enlarged and stable. Atherosclerotic calcificatio ns are seen in the aorta. Musculoskeletal: No acute osseous pathology. IMPRESSION: No acute cardiopulmonary disease/process.
--- NOTE | 2024-01-06 18:23 | CT ---
EXAMINATION TYPE: CT abdomen pelvis w con CT DLP: 1128.9 mGycm, Automated exposure control for dose reduction was used. DATE OF EXAM: 01/06/2024 5:53 PM COMPARISON: CT abdomen pelvis most recent from 05/03/2015 CLINICAL INDICATION:Male, 78 years old with history of eval pancreatitis; Eval pancreatitis. TECHNIQUE: Axial CT abdomen pelvis w con;Sagittal and coronal reformats were created on a separate w orkstation. Contrast used:100 ml mL of Isovue 300 with IV Contrast, (none if empty) Oral contrast used: without Oral Contrast (none if empty) FINDINGS: LOWER CHEST: Partially visualized 12 mm left lower lobe nodule. Heart is enlarged for size. Coronary artery atherosclerosis. ABDOMEN LIVER: Unremarkable GALLBLADDER AND BILE DUCTS: Unremarkable. PANCREAS: No evidence for pancreatitis or pancreatic mass. The pancreatic duct is within normal limit s for size. SPLEEN: Unremarkable. ADRENAL GLANDS: Unremarkable. KIDNEYS AND URETERS: No evidence of hydronephrosis or renal calculus. The ureters are unremarkable. Mild dilation of the left ureter seen dating back to 2014. PELVIS BLADDER: Unremarkable REPRODUCTIVE: Prostate is enlarged in size measuring 5.4 cm in transverse dimension. ABDOMEN & PELVIS STOMACH AND BOWEL: Small hiatal hernia. No evidence of bowel obstruction. The appendix is normal. PERITONEUM/RETROPERITONEUM: No evidence of pneumoperitoneum or free fluid. VASCULATURE: No evidence of aortic aneurysm. MUSCULOSKELETAL: No acute osseous abnormalities LYMPH NODES: No gross evidence for lymphadenopathy. SOFT TISSUE/ABDOMINAL WALL: Unremarkable IMPRESSION: 1. No evidence for pancreatitis or pancreatic mass. The pancreatic duct is within normal limits for size. 2. Chronic left hydroureter seen dating back to 2014. 3. 12 mm left lower lobe pulmonary nodule. Partially seen in 2014 and partially visualized on today' s exam as well. Complete outpatient evaluation of the chest with CT chest recommended. 4. Prostatomegaly correlate with serum PSA. 5. Small hiatal hernia.
[2024-01-06] MEDS ORDERED: NALOXONE 0.4 MG/ML 1 ML VIAL IV PRN (19:07)
[2024-01-06] MEDS: METOPROLOL TARTRATE 12.5 MG TAB PO SCH (20:19)
[2024-01-06] MEDS: metFORMIN 500 MG TAB PO SCH (20:19)
[2024-01-06] MEDS: HEPARIN SODIUM,PORCINE 5,000 UNIT/ML 1 ML VIAL SQ SCH (20:21)
[2024-01-06] MEDS: SODIUM CHLORIDE 0.9% 500 ML BAG IV STA (20:22)
[2024-01-07 05:42] LABS: Glucose,Whole Blood 102 mg/dL (70-110)
--- NOTE | 2024-01-07 09:35 | P.CRDCN ---
History of Present Illness Consult date: 01/07/24 History of present illness: HISTORY OF PRESENTING ILLNESS 78-year-old male with past medical history of CAD s/p PCI [place] LAD [place] [address] Barrientos. He also has history of hypertension and type 2 diabetes. He presented to the hospital because of substernal chest pressure that started yesterday. He reports that this pain is not particular related to activity or rest. He did receive sublingual nitroglycerin last night in the hospital which did not help his pain. His pain slowly eased by itself and 1 to 2 hours. His troponin x 3 have been negative Chest x-ray was nonrevealing NT proBNP 460 For some reason his lipase is elevated. Patient denies any alcohol use at this moment. REVIEW OF SYSTEMS 14 point review of system is negative except what is mentioned above in HPI. PHYSICAL EXAMINATION Vital signs reviewed. Head: Normocephalic. Eyes: Sclerae nonicteric. Neck: Brisk carotid upstroke, no jugular venous distention. Lungs: Clear to auscultation. Heart: Regular rate and rhythm, S1-S2, no S3, no murmur or rub. Abdomen: Soft nontender, positive bowel sounds. Extremities: No edema, intact distal pulses. Neuro: Alert, oritented, no focal deficits. Detailed neuro exam was not performed. ASSESSMENT Substernal chest pressure, rule out of acute coronary syndrome Type 2 diabetes Essential hypertension, Elevated lipase, with no evidence of pancreatitis on Abdo CT 12 mm left lung nodule PLAN Obtain an echocardiogram Obtain treadmill stress echocardiogram Primary team to evaluate the reason for elevated lipase. Repaglinide which is his home medication may cause elevated lipase. Increase lisinopril to 20 mg Aspirin 81, Lipitor, metoprolol 12.5 mg twice daily Dionisio Santoyo MD, FACC, RPVI Thank you for allowing [facility] to participate in this patient's care. Feel free to reach out in case of any followup questions. 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 from past job, "leaky valves", spinal stenosis History of Any Multi-Drug Resistant Organisms: None Reported Past Surgical History: Heart Catheterization, Hernia Repair Additional Past Surgical History / Comment(s): lymph node removed,surg for undescended testicles as teen, colonoscopies, GABI FUNDOPLASTY, EGD, cataracts removed, laser surg for glaucoma,back surgery Past Anesthesia/Blood Transfusion Reactions: No Reported Reaction Past Psychological History: No Psychological Hx Reported Smoking Status: Never smoker Past Alcohol Use History: None Reported Past Drug Use History: None Reported - Past Family History Father Family Medical History: Diabetes Mellitus, Hypertension Additional Family Medical History / Comment(s): abdominal Aneurysm Brother(s) Family Medical History: CVA/TIA Mother Family Medical History: No Reported History Medications and Allergies Home Medications Medication Instructions Recorded Confirmed Type Multivitamin [Men's Multi-Vitamin] 1 tab PO DAILY 04/24/15 01/06/24 History Vitamin B Complex 1 cap PO DAILY 04/24/15 01/06/24 History lisinopriL [Zestril] 10 mg PO DAILY 04/24/15 01/06/24 History metFORMIN HCL [Glucophage] 1,000 mg PO BID 04/24/15 01/06/24 History Insulin Glargine,Hum.rec.anlog 70 units SQ DAILY 12/07/15 01/06/24 History [Toleti Solostkatt] Aspirin EC [Ecotrin Low Dose] 81 mg PO DAILY 04/03/18 01/06/24 History Metoprolol Tartrate [Lopressor] 12.5 mg PO BID 01/05/21 01/06/24 History Ketoconazole 2% Cream [Nizoral 2%] 1 applic TOPICAL DAILY 01/06/24 01/06/24 History Repaglinide [Prandin] 0.5 mg PO BID 01/06/24 01/06/24 History Rosuvastatin [Crestor] 20 mg PO DAILY 01/06/24 01/06/24 History Allergies Allergy/AdvReac Type Severity Reaction Status Date / Time amoxicillin AdvReac Diarrhea Verified 01/06/24 16:43 Physical Exam Vitals: Vital Signs Temp Pulse Pulse Resp BP BP Pulse Ox 01/07/24 08:39 97 01/07/24 07:00 98 F 68 145/74 97 01/07/24 02:27 99.0 F 65 16 138/82 96 01/06/24 22:10 98.7 F 91 16 139/57 98 01/06/24 21:19 97.8 F 67 18 130/65 989 H 01/06/24 20:29 20 01/06/24 19:57 65 20 123/66 95 01/06/24 18:31 63 16 121/64 97 01/06/24 16:22 71 20 122/63 97 01/06/24 15:25 98.2 F 68 18 156/68 97 FiO2 01/07/24 08:39 21 01/07/24 07:00 01/07/24 02:27 01/06/24 22:10 01/06/24 21:19 01/06/24 20:29 01/06/24 19:57 01/06/24 18:31 01/06/24 16:22 01/06/24 15:25 Intake and Output 01/06/24 01/07/24 01/07/24 22:59 06:59 14:59 Other: # Voids 1 2 Weight 88.451 kg Results 01/06/24 16:06 01/06/24 16:06 Cardiac Enzymes 01/06/24 01/06/24 01/06/24 Range/Units 16:06 16:06 20:45 AST 29 (17-59) U/L Troponin I <0.012 <0.012 (0.000-0.034) ng/mL 01/06/24 Range/Units 23:55 AST (17-59) U/L Troponin I <0.012 (0.000-0.034) ng/mL Coagulation 01/06/24 Range/Units 16:06 PT 10.6 (10.0-12.5) sec APTT 24.0 (22.0-30.0) sec CBC 01/06/24 Range/Units 16:06 WBC 11.6 H (3.8-10.6) k/uL RBC 3.75 L (4.30-5.90) m/uL Hgb 12.4 L (13.0-17.5) gm/dL Hct 37.3 L (39.0-53.0) % Plt Count 190 (150-450) k/uL Comprehensive Metabolic Panel 01/06/24 Range/Units 16:06 Sodium 136 L (137-145) mmol/L Potassium 4.8 (3.5-5.1) mmol/L Chloride 106 (98-107) mmol/L Carbon Dioxide 24 (22-30) mmol/L BUN 17 (9-20) mg/dL Creatinine 0.77 (0.66-1.25) mg/dL Glucose 247 H (74-99) mg/dL Calcium 9.3 (8.4-10.2) mg/dL AST 29 (17-59) U/L ALT 30 (4-49) U/L Alkaline Phosphatase 31 L (38-126) U/L Total Protein 6.3 (6.3-8.2) g/dL Albumin 4.2 (3.5-5.0) g/dL Current Medications Generic Name Dose Route Start Last Admin Trade Name Freq PRN Reason Stop Dose Admin Aspirin 81 mg 01/07/24 09:00 Aspirin 81 Mg PO DAILY [facility] Atorvastatin Calcium 40 mg 01/07/24 09:00 Atorvastatin 40 Mg Tab PO DAILY [facility] Heparin Sodium (Porcine) 5,000 unit 01/06/24 21:00 01/06/24 20:21 Heparin Sodium,Porcine 5,000 Unit/Ml 1 Ml Vial SQ 5,000 unit Q12HR JODY Administration Insulin Detemir 70 unit 01/07/24 09:00 Insulin Detemir (Levemir) 100 Unit/Ml Syr SQ DAILY [facility] Lisinopril 20 mg 01/08/24 09:00 Lisinopril 20 Mg Tab PO DAILY [facility] Metformin HCl 1,000 mg 01/06/24 21:00 01/06/24 20:19 Metformin 500 Mg Tab PO Not Given BID [facility] Metoprolol Tartrate 12.5 mg 01/06/24 21:00 01/06/24 20:19 Metoprolol Tartrate 12.5 Mg Tab PO Not Given BID [facility] Naloxone HCl 0.2 mg 01/06/24 19:07 Naloxone 0.4 Mg/Ml 1 Ml Vial IV Q2M PRN Opioid Reversal Repaglinide 0.5 mg 01/07/24 07:30 Repaglinide 1 Mg Tab PO BID-W/MEALS JODY Intake and Output 01/06/24 01/07/24 01/07/24 22:59 06:59 14:59 Other: # Voids 1 2 Weight 88.451 kg 01/06/24 16:06 01/06/24 16:06
[2024-01-07 09:56] LABS: Basophils # (A) 0.04 X 10*3/uL (0.00-0.10); Basophils % (A) 0.4 %; Eosinophils # (A) 0.21 X 10*3/uL (0.04-0.35); Eosinophils % (A) 2.2 %; HCT 34.2 % (39.6-50.0); HGB 12.2 g/dL (13.0-17.0); Lymphocytes # (A) 2.44 X 10*3/uL (0.90-5.00); Lymphocytes % (A) 26.1 %; MCH 33.4 pg (27.0-32.0); MCHC 35.7 g/dL (32.0-37.0); MCV 93.7 FL (80.0-97.0); Mean Platelet Volume 10.7 FL (9.5-12.2); Monocytes # (A) 1.17 X 10*3/uL (0.20-1.00); Monocytes % (A) 12.5 %; NRBC Per 100 WBC 0 X 10*3/uL (0.00-0.01); Neutrophils # (A) 5.48 X 10*3/uL (1.80-7.70); Neutrophils % (A) 58.6 %; Platelet Count 171 X 10*3/uL (140-440); RBC 3.65 X 10*6/uL (4.40-5.60); RDW 12.4 % (11.5-14.5); WBC 9.36 X 10*3/uL (4.50-10.00)
[2024-01-07] MEDS: INSULIN DETEMIR (LEVEMIR) 100 UNIT/ML SYR SQ SCH (10:00)
[2024-01-07] MEDS: ATORVASTATIN 40 MG TAB PO SCH (10:00)
[2024-01-07] MEDS: ASPIRIN 81 MG PO SCH (10:00)
[2024-01-07] MEDS: REPAGLINIDE 1 MG TAB PO SCH (10:02)
[2024-01-07 10:29] LABS: ALT 26 U/L (10-49); AST 18 U/L (14-35); Albumin 4.2 g/dL (3.8-4.9); Albumin/Globulin Ratio 2.47 Ratio (1.60-3.17); Alkaline Phosphatase 35 U/L (41-126); Calcium 8.9 mg/dL (8.7-10.3); Carbon Dioxide 22.3 mmol/L (21.6-31.8); Chloride 108 mmol/L (96-109); Globulin 1.7 g/dL (1.6-3.3); Glucose 103 mg/dL (70-110); Potassium 4.1 mmol/L (3.5-5.5); Sodium 141 mmol/L (135-145); Total Bilirubin 0.7 mg/dL (0.3-1.2); Total Protein 5.9 g/dL (6.2-8.2)
[2024-01-07] MEDS: lisinopriL 10 MG TAB PO SCH (10:47)
[2024-01-07] MEDS: lisinopriL 20 MG TAB PO ONE (11:17)
[2024-01-07 12:25] LABS: Glucose,Whole Blood 270 mg/dL (70-110)
--- NOTE | 2024-01-07 15:09 | P.HPIM ---
History of Present Illness H&P Date: 01/07/24 History of present illness; 78-year-old male with past medical history significant for diabetes mellitus, hypertension, hyperlipidemia, history of non-Hodgkin's lymphoma 10 years ago treated with chemo and radiation, history of valvular heart disease, history of spinal stenosis, history of coronary artery disease status post PCI to LAD [place] [address] Barrientos who presented to hospital with a complaint of substernal chest pain for 1 day. Patient stated that he had some exertional work done 2 days ago. Patient started to have left-sided shoulder pain yesterday, later on patient noticed chest pressure over upper chest, worse with deep breaths, without any shortness of breath. Patient denied any nausea, vomiting, sweating, palpitations, dizziness. Pain did not improve or get worse with activity or rest. Patient received sublingual nitroglycerin in the hospital which also did not help with the pain. In the ED patient's vital stable. Troponin negative X.3. Chest x-ray unremarkable. NT proBNP 460. Lipase was elevated 680. CT abdomen pelvis showed no evidence of pancreatitis or pancreatic mass, pancreatic duct normal, chronic left hydroureter, 12 mm left lower lobe pulmonary nodule, prostatomegaly, small hiatal hernia. Patient admitted to internal medicine service REVIEW OF SYSTEMS: CONSTITUTIONAL: No fever, no malaise, no fatigue. HEENT: No recent visual problems or hearing problems. Denied any sore throat. CARDIOVASCULAR: No chest pain, orthopnea, PND, no palpitations, no syncope. PULMONARY: No shortness of breath, no cough, no hemoptysis. GASTROINTESTINAL: No diarrhea, no nausea, no vomiting, no abdominal pain. NEUROLOGICAL: No headaches, no weakness, no numbness. HEMATOLOGICAL: Denies any bleeding or petechiae. GENITOURINARY: Denies any burning micturition, frequency, or urgency. MUSCULOSKELETAL/RHEUMATOLOGICAL: Denies any joint pain, swelling, or any muscle pain. ENDOCRINE: Denies any polyuria or polydipsia. The rest of the 14-point review of systems is negative. PHYSICAL EXAMINATION: GENERAL: The patient is alert and oriented x3, not in any acute distress. Well developed, well nourished. HEENT: Pupils are round and equally reacting to light. EOMI. No scleral icterus. No conjunctival pallor. Normocephalic, atraumatic. No pharyngeal erythema. No thyromegaly. CARDIOVASCULAR: S1 and S2 present. No murmurs, rubs, or gallops. PULMONARY: Chest is clear to auscultation, no wheezing or crackles. ABDOMEN: Soft, nontender, nondistended, normoactive bowel sounds. No palpable organomegaly. MUSCULOSKELETAL: No joint swelling or deformity. EXTREMITIES: No cyanosis, clubbing, or pedal edema. NEUROLOGICAL: Gross neurological examination did not reveal any focal deficits. SKIN: No rashes. Assessment and plan Chest pain: History of CAD, status post PCI of LAD in 2020: Presented with chest painatypical EKG and troponin negative for acute process. Chest x-ray unremarkable. Continue aspirin, Lipitor, metoprolol, increase lisinopril to 20 mg daily per cardiology. Cardiology consultedplan for echocardiogram and treadmill stress echocardiogram. Elevated lipase: Doubt acute pancreatitis, patient asymptomatic, CT abdomen pelvis negative for any acute process LFTs unremarkable. Monitor CMP and lipase Hold repaglinide Pulmonary nodule: Outpatient follow-up with repeat CT with PCP Prostatomegaly: PCP to follow with PSA. DVT prophylaxis. Dictation was produced using [employer] dictation software. please excuse any grammatical, word or spelling errors. 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 from past job, "leaky valves", spinal stenosis History of Any Multi-Drug Resistant Organisms: None Reported Past Surgical History: Heart Catheterization, Hernia Repair Additional Past Surgical History / Comment(s): lymph node removed,surg for undescended testicles as teen, colonoscopies, GABI FUNDOPLASTY, EGD, cataracts removed, laser surg for glaucoma,back surgery Past Anesthesia/Blood Transfusion Reactions: No Reported Reaction Past Psychological History: No Psychological Hx Reported Smoking Status: Never smoker Past Alcohol Use History: None Reported Past Drug Use History: None Reported - Past Family History Father Family Medical History: Diabetes Mellitus, Hypertension Additional Family Medical History / Comment(s): abdominal Aneurysm Brother(s) Family Medical History: CVA/TIA Mother Family Medical History: No Reported History Medications and Allergies Home Medications Medication Instructions Recorded Confirmed Type Multivitamin [Men's Multi-Vitamin] 1 tab PO DAILY 04/24/15 01/06/24 History Vitamin B Complex 1 cap PO DAILY 04/24/15 01/06/24 History lisinopriL [Zestril] 10 mg PO DAILY 04/24/15 01/06/24 History metFORMIN HCL [Glucophage] 1,000 mg PO BID 04/24/15 01/06/24 History Insulin Glargine,Hum.rec.anlog 70 units SQ DAILY 12/07/15 01/06/24 History [Toujeo Solostar] Aspirin EC [Ecotrin Low Dose] 81 mg PO DAILY 04/03/18 01/06/24 History Metoprolol Tartrate [Lopressor] 12.5 mg PO BID 01/05/21 01/06/24 History Ketoconazole 2% Cream [Nizoral 2%] 1 applic TOPICAL DAILY 01/06/24 01/06/24 History Repaglinide [Prandin] 0.5 mg PO BID 01/06/24 01/06/24 History Rosuvastatin [Crestor] 20 mg PO DAILY 01/06/24 01/06/24 History Allergies Allergy/AdvReac Type Severity Reaction Status Date / Time amoxicillin AdvReac Diarrhea Verified 01/06/24 16:43 Physical Exam Vitals: Vital Signs Temp Pulse Pulse Resp BP BP Pulse Ox 01/07/24 14:27 98.8 F 65 141/53 99 01/07/24 08:39 97 01/07/24 07:00 98 F 68 145/74 97 01/07/24 02:27 99.0 F 65 16 138/82 96 01/06/24 22:10 98.7 F 91 16 139/57 98 01/06/24 21:19 97.8 F 67 18 130/65 989 H 01/06/24 20:29 20 01/06/24 19:57 65 20 123/66 95 01/06/24 18:31 63 16 121/64 97 01/06/24 16:22 71 20 122/63 97 01/06/24 15:25 98.2 F 68 18 156/68 97 FiO2 01/07/24 14:27 01/07/24 08:39 21 01/07/24 07:00 01/07/24 02:27 01/06/24 22:10 01/06/24 21:19 01/06/24 20:29 01/06/24 19:57 01/06/24 18:31 01/06/24 16:22 01/06/24 15:25 Intake and Output 01/07/24 01/07/24 01/07/24 06:59 14:59 22:59 Intake Total 358 Balance 358 Intake: Oral 358 Other: # Voids 2 1 Results CBC & Chem 7: 01/07/24 05:46 01/07/24 05:46 Labs: Abnormal Lab Results - Last 24 Hours (Table) 01/06/24 01/06/24 01/06/24 Range/Units 16:06 16:06 16:06 WBC 11.6 H (3.8-10.6) k/uL RBC 3.75 L (4.30-5.90) m/uL Hgb 12.4 L (13.0-17.5) gm/dL Hct 37.3 L (39.0-53.0) % MCH (27.0-32.0) pg Neutrophils # 8.5 H (1.3-7.7) k/uL Monocytes # (0.20-1.00) X 10*3/uL D-Dimer 0.62 H (<0.60) mg/L FEU Sodium 136 L (137-145) mmol/L Glucose 247 H (74-99) mg/dL POC Glucose (mg/dL) (70-110) mg/dL Alkaline Phosphatase 31 L (38-126) U/L Total Protein (6.2-8.2) g/dL Lipase 680 H (23-300) U/L 01/07/24 01/07/24 01/07/24 Range/Units 05:46 05:46 12:24 WBC (3.8-10.6) k/uL RBC 3.65 L (4.30-5.90) m/uL Hgb 12.2 L (13.0-17.5) gm/dL Hct 34.2 L (39.0-53.0) % MCH 33.4 H (27.0-32.0) pg Neutrophils # (1.3-7.7) k/uL Monocytes # 1.17 H (0.20-1.00) X 10*3/uL D-Dimer (<0.60) mg/L FEU Sodium (137-145) mmol/L Glucose (74-99) mg/dL POC Glucose (mg/dL) 270 H (70-110) mg/dL Alkaline Phosphatase 35 L (38-126) U/L Total Protein 5.9 L (6.2-8.2) g/dL Lipase (23-300) U/L
[2024-01-07] MEDS ORDERED: DEXTROSE 50% SYRINGE 50 ML IVP PRN ×2 (15:12)
[2024-01-07 17:28] LABS: Glucose,Whole Blood 217 mg/dL (70-110)
[2024-01-07] MEDS: INSULIN ASPART (NovoLOG) 100 UNIT/ML VIAL SQ SCH (17:48)
[2024-01-07 20:32] LABS: Glucose,Whole Blood 236 mg/dL (70-110)
[2024-01-08 06:13] LABS: Glucose,Whole Blood 70 mg/dL (70-110)
[2024-01-08] MEDS ORDERED: RX INFO: IV CONTRAST WAS GIVEN 1 EACH MISC MISCELLANE PRN (09:02)
[2024-01-08 09:17] LABS: Glucose,Whole Blood 95 mg/dL (70-110)
[2024-01-08] MEDS: lisinopriL 20 MG TAB PO SCH (09:19)
[2024-01-08] MEDS: SODIUM CHLORIDE 0.9% 1,000 ML IV SCH (09:25)
[2024-01-08 10:50] LABS: Basophils # (A) 0.04 X 10*3/uL (0.00-0.10); Basophils % (A) 0.4 %; Eosinophils # (A) 0.19 X 10*3/uL (0.04-0.35); Eosinophils % (A) 1.9 %; HCT 35.4 % (39.6-50.0); HGB 12.3 g/dL (13.0-17.0); Lymphocytes # (A) 2.34 X 10*3/uL (0.90-5.00); Lymphocytes % (A) 23.1 %; MCH 33.4 pg (27.0-32.0); MCHC 34.7 g/dL (32.0-37.0); MCV 96.2 FL (80.0-97.0); Mean Platelet Volume 10.9 FL (9.5-12.2); Monocytes # (A) 0.86 X 10*3/uL (0.20-1.00); Monocytes % (A) 8.5 %; NRBC Per 100 WBC 0 X 10*3/uL (0.00-0.01); Neutrophils # (A) 6.65 X 10*3/uL (1.80-7.70); Neutrophils % (A) 65.8 %; Platelet Count 176 X 10*3/uL (140-440); RBC 3.68 X 10*6/uL (4.40-5.60); RDW 12.4 % (11.5-14.5); WBC 10.11 X 10*3/uL (4.50-10.00)
[2024-01-08 10:52] LABS: ALT 22 U/L (10-49); AST 22 U/L (14-35); Albumin 4.4 g/dL (3.8-4.9); Albumin/Globulin Ratio 2.44 Ratio (1.60-3.17); Alkaline Phosphatase 38 U/L (41-126); BUN/Creat Ratio 14.44 Ratio (12.00-20.00); Calcium 9.4 mg/dL (8.7-10.3); Carbon Dioxide 23.8 mmol/L (21.6-31.8); Chloride 107 mmol/L (96-109); Globulin 1.8 g/dL (1.6-3.3); Glucose 68 mg/dL (70-110); Lipase 56 U/L (14-60); Potassium 4.4 mmol/L (3.5-5.5); Sodium 142 mmol/L (135-145); Total Bilirubin 0.7 mg/dL (0.3-1.2); Total Protein 6.2 g/dL (6.2-8.2)
--- NOTE | 2024-01-08 11:04 | P.PN ---
Subjective HISTORY OF PRESENTING ILLNESS 78-year-old male with past medical history of CAD s/p PCI to LAD [place] [address] Barrientos. He also has history of hypertension and type 2 diabetes. He presented to the hospital because of substernal chest pressure that started yesterday. He reports that this pain is not particular related to activity or rest. He did receive sublingual nitroglycerin last night in the hospital which did not help his pain. His pain slowly eased by itself and 1 to 2 hours. His troponin x 3 have been negative Chest x-ray was nonrevealing NT proBNP 460 For some reason his lipase is elevated. Patient denies any alcohol use at this moment. 01/07 Lisinopril was increased and blood pressure ranging from 130s up to 150s systolic. He states his chest pain has improved and denies any this morning. Schedule for echo and stress echo. PHYSICAL EXAMINATION Vital signs reviewed. Head: Normocephalic. Eyes: Sclerae nonicteric. Neck: Brisk carotid upstroke, no jugular venous distention. Lungs: Clear to auscultation. Heart: Regular rate and rhythm, S1-S2, no S3, no murmur or rub. Abdomen: Soft nontender, positive bowel sounds. Extremities: No edema, intact distal pulses. Neuro: Alert, oritented, no focal deficits. Detailed neuro exam was not performed. ASSESSMENT Substernal chest pressure, rule out of acute coronary syndrome Type 2 diabetes Essential hypertension Elevated lipase, with no evidence of pancreatitis on Abdo CT 12 mm left lung nodule PLAN await echo as well as stress echo results. If unrevealing patient may be discharged home on increased dose of lisinopril from cardio standpoint. Objective - Vital Signs Vital signs: Vital Signs Temp 97.5 F L 01/08/24 07:00 Pulse 62 01/08/24 07:00 Resp 17 01/08/24 09:19 BP 147/70 01/08/24 07:00 Pulse Ox 98 01/08/24 07:00 FiO2 21 01/07/24 08:39 Intake & Output 01/07/24 01/08/24 01/08/24 18:59 06:59 18:59 Intake Total 1016 Balance 1016 Intake: Oral 1016 Other: Voiding Method Toilet # Voids 1 2 1 - Labs CBC & Chem 7: 01/08/24 07:14 01/08/24 07:14 Labs: Abnormal Lab Results - Last 24 Hours (Table) 01/07/24 01/07/24 01/07/24 Range/Units 12:24 17:26 20:30 WBC (4.50-10.00) X 10*3/uL RBC (4.40-5.60) X 10*6/uL Hgb (13.0-17.0) g/dL Hct (39.6-50.0) % MCH (27.0-32.0) pg Glucose (70-110) mg/dL POC Glucose (mg/dL) 270 H 217 H 236 H (70-110) mg/dL Alkaline Phosphatase (41-126) U/L 01/08/24 01/08/24 Range/Units 07:14 07:14 WBC 10.11 H (4.50-10.00) X 10*3/uL RBC 3.68 L (4.40-5.60) X 10*6/uL Hgb 12.3 L (13.0-17.0) g/dL Hct 35.4 L (39.6-50.0) % MCH 33.4 H (27.0-32.0) pg Glucose 68 L (70-110) mg/dL POC Glucose (mg/dL) (70-110) mg/dL Alkaline Phosphatase 38 L (41-126) U/L
[2024-01-08 12:03] LABS: Glucose,Whole Blood 95 mg/dL (70-110)
--- NOTE | 2024-01-08 12:13 | CA ---
Stress Echo Report Waldemar Eastman Age: 78 Gender: M : 1945 Exam Date: 01/08/2024 10:53 Exam Location: [facility] Ht (in): 71 Wt (lb): 195 Ordering Physician: Bin Riley DO ([email or web address]) Referring Physician: BIN RILEY,, Branch Associate: Anna Shay RDCS Technologist Procedure CPT: Indication: re: chest pain ICD-9 Codes: Rhythm: Patient History: CHEST PAIN, HTN, DIABETES, HYPERCHOLESTEROLEMIA, FAMILY HX OF HEART DISEASE, PRIOR HEART CATH WITH STENT Cardiac Medications: Medications in past 24 hours: Contrast: N/A Stress Results Protocol: Nii Total dose(mL): Exercise Duration (min:sec): 3:[address] Depression (mm): Angina Score: Vargas Score: METS: 5.0 Resting HR: 77 Resting BP: 158 / 69 Peak HR: 137 Peak BP: 203 / 81 Max Predicted HR: 143 96 % Max Predicted HR Target HR: 122 Double Product: [id number] Stress Summary: BP Response: Reason for Termination: MAX EXERTION/TARGET HR Cardiac Symptoms: NO SYMPTOMS ECG Analysis Resting ECG: Stress ECG: Arrhythmia: Echo Analysis Resting Echo: Peak Echo Analysis: MEASUREMENTS (Male/Female) Normal Values CONCLUSIONS Patient underwent exercise stress echo with a Nii protocol treadmill stress test. Patient exercised into Stage 2 for a total of 3 minutes and 30 seconds reaching a total of 5.0 METS. Patient's maximum heart rate was 137 which represented 95% age- predicted maximum heart rate. Stress EKG portion: At baseline patient's EKG showed normal sinus rhythm, normal axis, no significant ST or T wave abnormalities. At peak exercise, EKG showed no significant change from baseline. Stress echo portion: 2-D echocardiogram was performed in the parasternal long, personal short, apical 2 and apical four-chamber views at rest, peak exercise and in recovery. At baseline, echocardiogram showed left ventricular ejection fraction 55% without wall motion abnormalities. With peak exercise, echocardiogram shows improvement in left ventricular ejection fraction, increase contractility, decrease in left ventricular end systolic dimension without wall motion abnormalities consistent with a normal response to exercise. Conclusions: 1. Normal EKG and echo response to exercise without evidence of inducible ischemia. 2. Poor exercise capacity. Dr. Bin Riley DO (Electronically Signed) Final Date: 08 January 2024 12:13
--- NOTE | 2024-01-08 12:33 | CT ---
EXAMINATION TYPE: CT chest w con DATE OF EXAM: 01/08/2024 COMPARISON: 03/19/2018 HISTORY: 78-year-old male elev D Dimer and pulm nodule TECHNIQUE: Contiguous axial scanning of the chest after the administration of 100 ml mL of Isovue 300 . Coronal/sagittal reconstructions performed. CT DLP: 531mGycm. Automatic exposure control utilized for a dose reduction. FINDINGS: Heart is upper limits of normal size without pericardial effusion. Three-vessel coronary artery calci fications are present and are remarkable for coronary disease. Ectatic aortic root at 3.8 cm may be increased from 3.5 cm in 2018. Ectatic ascending aorta 3.7 cm. M ild atelectatic arch calcifications with bovine configuration to the aortic arch. No thoracic lymphadenopathy by CT size criteria. A 1.4 x 0.9 cm (measured on coronal images 73 and 74) posterior left lower lobe bilobed pulmonary nod ule is minimally larger from 2018 where it measured 1.3 x 0.8 cm (measured on coronal image 62). No consolidation or pleural effusion. Post surgical change of the GE junction but with a small hiatal hernia. Abdomen reported separately. Bones: Mild to moderate degenerative disc disease lower thoracic spine. Some anterior endplate spondy losis is noted. IMPRESSION: 1. A bilobed pulmonary nodule within the left lower lobe measures 1.4 x 0.9 cm. This is minimally lar bisi from 1.3 x 0.8 cm back in 2018. Indolent behavior suggests a benign etiology. Recommend 1 or 2 ye ar surveillance follow-up. 2. Scattered three-vessel coronary artery calcifications. 3. Suspect previous hiatal hernia repair but with recurrent small hiatal hernia. Consider sending the patient back to their surgeon if any recurrent symptoms.
--- NOTE | 2024-01-08 13:15 | CA ---
Transthoracic Echo Report Name: Waldemar Eastman Age: 78 Gender: M : 1945 Exam Date: 01/08/2024 11:02 Exam Location: [facility] Ht (in): 71 Wt (lb): 195 Ordering Physician: Lv Mckeon MD Attending/Referring Phys: Tool Room Machinist Anna Shay RDCS Procedure CPT: Indications: Chest Pain Cardiac Hx: Technical Quality: Fair Contrast 1: Total Dose (mL): Contrast 2: Total Dose (mL): MEASUREMENTS (Male / Female) Normal Values 2D ECHO LV Diastolic Diameter PLAX 4.2 cm 4.2 - 5.9 / 3.9 - 5.3 cm LV Systolic Diameter PLAX 2.4 cm IVS Diastolic Thickness 1.9 cm 0.6 - 1.0 / 0.6 - 0.9 cm LVPW Diastolic Thickness 1.7 cm 0.6 - 1.0 / 0.6 - 0.9 cm LV Relative Wall Thickness 0.9 RV Internal Dim ED PLAX 3.1 cm LVOT Diameter 1.9 cm LA Volume 80.1 cm??? 18 - 58 / 22 - 52 cm??? LA Volume Index 37.8 cm???/m??? 16 - 28 cm???/m??? M-MODE Aortic Root Diameter MM 4.2 cm LA Systolic Diameter MM 5.5 cm LA Ao Ratio MM 1.3 AV Cusp Separation MM 1.8 cm DOPPLER AV Peak Velocity 190.5 cm/s AV Peak Gradient 14.5 mmHg AV Mean Velocity 120.4 cm/s AV Mean Gradient 6.7 mmHg AV Velocity Time Integral 41.7 cm AI Peak Velocity 467.7 cm/s AI Peak Gradient 87.5 mmHg AI Pressure Half Time 317.5 ms LVOT Peak Velocity 113.7 cm/s LVOT Peak Gradient 5.2 mmHg LVOT Velocity Time Integral 25.4 cm LVOT Stroke Volume 70.4 cm??? LVOT Stroke Volume Index 33.7 ml/m??? LVOT Cardiac Index 2125.1 cm???/min???m??? AV Area Cont Eq vti 1.7 cm??? AV Area Cont Eq pk 1.7 cm??? MV Area PHT 2.4 cm??? Mitral E Point Velocity 56.3 cm/s Mitral A Point Velocity 79.1 cm/s Mitral E to A Ratio 0.7 MV Deceleration Time 313.5 ms MV E' Velocity 4.3 cm/s Mitral E to MV E' Ratio 13.2 FINDINGS Left Ventricle Severely increased left ventricular wall thickness. Left ventricular cavity size normal. Normal left ventricular systolic function with no obvious regional wall motion abnormalities. Left ventricular ejection fraction is estimated at 55-60 %. Grade 1 diastolic dysfunction. Right Ventricle Normal right ventricular size and function. Right ventricular systolic pressure within normal limits. Right Atrium Normal right atrial size. Left Atrium Moderately increased left atrial volume. Mildly increased left atrial area. Mitral Valve Structurally normal mitral valve. Mitral valve thickened. Mild mitral annular calcification. [id number]-rh-wghzsuub mitral regurgitation. Aortic Valve Trileaflet aortic valve. No aortic stenosis. Moderate aortic regurgitation. Tricuspid Valve Structurally normal tricuspid valve. Mild tricuspid regurgitation. Pulmonic Valve Structurally normal pulmonic valve. Trace pulmonic regurgitation. Pericardium No pericardial effusion. Aorta Normal size aortic root and proximal ascending aorta. CONCLUSIONS Left ventricular ejection fraction 55-60% Severely increased left ventricular wall thickness Mild to moderately left atrium Mild to moderate mitral regurgitation Moderate aortic regurgitation Mild tricuspid regurgitation Previewed by: Dr. Bin Grover DO (Electronically Signed) Final Date: 08 January 2024 13:14
[2024-01-08 15:08] VITALS: BP 145/69; PULSE 60; RESP 16; TEMP 98
--- NOTE | 2024-01-08 17:07 | P.DS ---
Providers Date of admission: 01/06/24 19:07 Expected date of discharge: 01/08/24 Attending physician: Edwardo Feldman Consults: 01/06/24 19:07 Consult Physician Routine Consulting Provider: [facility] Consult Reason/Comments: chest pain Do you want consulting provider notified?: Yes Primary care physician: Edwardo Feldman [facility] Course: Final Diagnoses: Chest pain, troponins negative x 3, ruling out acute coronary syndrome CAD, stenting Hypertension Diabetes mellitus type 2 Elevated lipase on admission, 680 asymptomatic, idiopathic, resolved, Abdomen/pelvis CT reporting no evidence of pancreatitis or pancreatic mass, pancreatic duct within normal limits. 12 mm left lower lobe pulmonary nodule partially seen in 2015 reported per abdomen/pelvis CT. Chest CT reported no consolidation or pleural effusion, 1.4 x 0.9 posterior left lower lobe bilobed pulmonary nodule minimally larger than 2018 where it measured 1.3 x 0.8, suggesting a benign etiology, recommending 1 year surveillance follow-up. Ectatic aortic root at 3.8 cm, increased from 3.5 cm in 2018, ectatic ascending aorta 3.7 cm, further monitoring/follow-up outpatient. Prostatomegaly, serum PSA outpatient in clinic with PCP Recurrent small hiatal hernia, asymptomatic, follow-up outpatient with general surgery for further evaluation Non-Hodgkin's lymphoma, history of Hospital course this a 78-year-old gentleman admitted with chest pain accompanied by shortness of breath, radiated to his left shoulder, hypertension relieved with sublingual nitroglycerin IP, troponins negative x 3, proBNP 460. Evaluated by cardiology, lisinopril increased with blood pressure better controlled. Denies any chest pain, palpitations, shortness of breath or diaphoresis this morning. Scheduled for echo and stress echo. Patient will be discharged home today in a stable condition with guarded prognosis pending cardiology testing, final DC recommendations and clearance per cardiology. The impression and plan of care has been dictated as directed. : I performed a history and examination of this patient, discussed the same with the dictator. I agree with the dictator's note ,documented as a scribe. Any additional findings or plans will be noted. Patient Condition at Discharge: Stable Plan - Discharge Summary New Discharge Prescriptions: New lisinopriL [Zestril] 20 mg PO DAILY #30 tab Continue metFORMIN HCL [Glucophage] 1,000 mg PO BID Vitamin B Complex 1 cap PO DAILY Multivitamin [Men's Multi-Vitamin] 1 tab PO DAILY Insulin Glargine,Hum.rec.anlog [Toujeo Solostar] 70 units SQ DAILY Aspirin EC [Ecotrin Low Dose] 81 mg PO DAILY Metoprolol Tartrate [Lopressor] 12.5 mg PO BID Ketoconazole 2% Cream [Nizoral 2%] 1 applic TOPICAL DAILY Repaglinide [Prandin] 0.5 mg PO BID Rosuvastatin [Crestor] 20 mg PO DAILY Discontinued lisinopriL [Zestril] 10 mg PO DAILY Discharge Medication List Multivitamin [Men's Multi-Vitamin] 1 tab PO DAILY 04/24/15 [History] Vitamin B Complex 1 cap PO DAILY 04/24/15 [History] metFORMIN HCL [Glucophage] 1,000 mg PO BID 04/24/15 [History] Insulin Glargine,Hum.rec.anlog [Toujeo Solostar] 70 units SQ DAILY 12/07/15 [History] Aspirin EC [Ecotrin Low Dose] 81 mg PO DAILY 04/03/18 [History] Metoprolol Tartrate [Lopressor] 12.5 mg PO BID 01/05/21 [History] Ketoconazole 2% Cream [Nizoral 2%] 1 applic TOPICAL DAILY 01/06/24 [History] Repaglinide [Prandin] 0.5 mg PO BID 01/06/24 [History] Rosuvastatin [Crestor] 20 mg PO DAILY 01/06/24 [History] lisinopriL [Zestril] 20 mg PO DAILY #30 tab 01/08/24 [Rx] Follow up Appointment(s)/Referral(s): Anaya Barrientos MD [STAFF PHYSICIAN] - 1 Week Edwardo Feldman DO [Primary Care Provider] - 3 Days Patient Instructions/Handouts: Chest Pain (DC) Activity/Diet/Wound Care/Special Instructions: FOLLOW UP DIRECTED, SOONER FOR WORSENING SYMPTOMS, PROBLEMS, OR CONCERNS. Outpatient PSA with PCP Discharge Disposition: HOME SELF-CARE
== END 2024-01-08 16:10 | disposition home or self-care (01) ==
LOC: EC 15:18 → 6NMEDSUR 19:07
PROVIDERS: ADMIT Family Medicine; ATTEND Family Medicine
DX: R07.89 Other chest pain (principal); I25.10 Atherosclerotic heart disease of native coronary artery without angina pectoris; I10 Essential (primary) hypertension; E11.9 Type 2 diabetes mellitus without complications; R91.8 Other nonspecific abnormal finding of lung field; Z85.72 Personal history of non-Hodgkin lymphomas; Z87.898 Personal history of other specified conditions; E78.5 Hyperlipidemia, unspecified; Z95.5 Presence of coronary angioplasty implant and graft; Z83.3 Family history of diabetes mellitus; Z92.3 Personal history of irradiation; Z92.21 Personal history of antineoplastic chemotherapy; Z82.49 Family history of ischemic heart disease and other diseases of the circulatory system; Z79.84 Long term (current) use of oral hypoglycemic drugs; Z79.82 Long term (current) use of aspirin
CPT/HCPCS: 96372 ×4; 96360; 99285; 36415; 94760; 93005 ×2; 93306; 93351; 85379; 83880; 80053 ×3; 83690 ×2; 83735; 84484; 85025 ×3; 85610; 85730; 71046; 71260; 74177; G0378 ×3; J1644 ×3; Q9967 ×2

== ENCOUNTER → 2024-08-28 | Outpatient (CLI) | payer MEDICARE ==
[2024-08-28 11:03] LABS: ALT 29 U/L (10-49); AST 21 U/L (14-35); Albumin 4.5 g/dL (3.8-4.9); Alkaline Phosphatase 37 U/L (41-126); BUN/Creat Ratio 20.56 Ratio (12.00-20.00); Blood Urea Nitrogen 18.5 mg/dL (9.0-27.0); Calcium 9.5 mg/dL (8.7-10.3); Carbon Dioxide 25.2 mmol/L (21.6-31.8); Chloride 106 mmol/L (96-109); Chol/HDL Ratio 2.76 Ratio; Globulin 1.8 g/dL (1.6-3.3); Glucose 118 mg/dL (70-110); LDL Cholesterol,Calculated 55.1 mg/dL (0.0-131.0); Potassium 4.4 mmol/L (3.5-5.5); Sodium 141 mmol/L (135-145); Total Bilirubin 0.5 mg/dL (0.3-1.2); Total Protein 6.3 g/dL (6.2-8.2)
[2024-08-28 20:17] LABS: Urine Creatinine 51.1 mg/dL (39.0-259.0)
[2024-08-28 20:51] LABS: Urine Creatinine 51.7 mg/dL (39.0-259.0)
== END | disposition home or self-care (01) ==
LOC: LABWHC1 07:49
PROVIDERS: ATTEND Internal Medicine Endocrinology, Diabetes & Metabolism
DX: E11.65 Type 2 diabetes mellitus with hyperglycemia (principal)
CPT/HCPCS: 36415; 80053; 80061; 82043; 82570; 83036; 84443

== ENCOUNTER 2024-08-29 20:07 | Emergency (ER) | payer MEDICARE ==
[2024-08-29 20:47] VITALS: TEMP 98.5
--- NOTE | 2024-08-29 21:18 | ED ---
Weakness HPI - General Source: patient, RN notes reviewed Mode of arrival: ambulatory Limitations: no limitations <Humaira Smalls - Last Filed: 08/29/24 21:17> <Haim Guerra - Last Filed: 09/23/24 06:36> - General Chief complaint: Weakness Stated complaint: weakness Time Seen by Provider: 08/29/24 21:17 - History of Present Illness Initial comments: Quick [id number] male presenting for generalized weakness for 3 days with associated dizziness. reports patient has been irritable with a decreased appetite. Denies chest pain or shortness of breath. (Humaira Smalls) - Related Data Home Medications Medication Instructions Recorded Confirmed Multivitamin [Men's Multi-Vitamin] 1 tab PO DAILY 04/24/15 01/06/24 Vitamin B Complex 1 cap PO DAILY 04/24/15 01/06/24 metFORMIN HCL [Glucophage] 1,000 mg PO BID 04/24/15 01/06/24 Insulin Glargine,Hum.rec.anlog 70 units SQ DAILY 12/07/15 01/06/24 [Robin Blanton] Aspirin EC [Ecotrin Low Dose] 81 mg PO DAILY 04/03/18 01/06/24 Metoprolol Tartrate [Lopressor] 12.5 mg PO BID 01/05/21 01/06/24 Ketoconazole 2% Cream [Nizoral 2%] 1 applic TOPICAL DAILY 01/06/24 01/06/24 Repaglinide [Prandin] 0.5 mg PO BID 01/06/24 01/06/24 Rosuvastatin [Crestor] 20 mg PO DAILY 01/06/24 01/06/24 Previous Rx's Medication Instructions Recorded lisinopriL [Zestril] 20 mg PO DAILY #30 tab 01/08/24 Allergies Allergy/AdvReac Type Severity Reaction Status Date / Time amoxicillin AdvReac Diarrhea Verified 08/29/24 20:47 Review of Systems ROS Other: All systems not noted in ROS Statement are negative. <Humaira Smalls - Last Filed: 08/29/24 21:17> ROS Other: All systems not noted in ROS Statement are negative. <Haim Guerra - Last Filed: 09/23/24 06:36> ROS Statement: Those systems with pertinent positive or pertinent negative responses have been documented in the HPI. 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 from past job, "leaky valves", spinal stenosis History of Any Multi-Drug Resistant Organisms: None Reported Past Surgical History: Heart Catheterization, Hernia Repair Additional Past Surgical History / Comment(s): lymph node removed,surg for undescended testicles as teen, colonoscopies, GABI FUNDOPLASTY, EGD, cataracts removed, laser surg for glaucoma,back surgery Past Anesthesia/Blood Transfusion Reactions: No Reported Reaction Past Psychological History: No Psychological Hx Reported Smoking Status: Never smoker Past Alcohol Use History: None Reported Past Drug Use History: None Reported - Past Family History Father Family Medical History: Diabetes Mellitus, Hypertension Additional Family Medical History / Comment(s): abdominal Aneurysm Brother(s) Family Medical History: CVA/TIA Mother Family Medical History: No Reported History <Humaira Smalls - Last Filed: 08/29/24 21:17> General Exam Limitations: no limitations <Humaira Smalls - Last Filed: 08/29/24 21:17> - General Exam Comments Initial Comments: Visual Physical Exam Vital signs reviewed General: Well-appearing, nontoxic, no acute distress. Head: Normocephalic, atraumatic Eyes: PERRLA, EOMI ENT: Airway patent Chest: Nonlabored breathing Skin: No visual rash, normal skin tone Neuro: Alert and oriented 3 Musculoskeletal: No gross abnormalities (Humaira Smalls) Course Vital Signs 08/29/24 08/30/24 08/30/24 20:43 01:14 01:43 Temperature 98.5 F Pulse Rate 89 70 70 Respiratory 17 18 18 Rate Blood Pressure 107/59 130/61 O2 Sat by Pulse 96 96 97 Oximetry EKG Findings - EKG Results: EKG: interpreted by ERMD, sinus rhythm (89 bpm), normal axis, normal QRS - Blocks, [place], Hypertrophy, ST Abn: Repolarization changes or abnormalities: nonspecific abnormality, ST segment, and/or T wave <Haim Guerra - Last Filed: 03/24/25 06:36> Medical Decision Making <SlimTomaHumaira - Last Filed: 08/29/24 21:17> - Lab Data Result diagrams: 08/29/24 21:29 08/29/24 21:29 <ZachHaim vega - Last Filed: 09/23/24 06:36> - Medical Decision Making I completed the quick note portion of this chart signed Humaira Smalls PA-C (Zonia vega,Humaira) The patient had chest x-ray that I interpreted as negative for acute infiltrate, pneumothorax, congestive heart failure The patient had CT of the brain that I interpreted as negative for acute bony injury, negative for acute intracranial hemorrhage, mass effect or midline sh ift. Was pt. sent in by a medical professional or institution (, PA, OPTOMETRIC ASSISTANT, urgent care, hospital, or shelter...) When possible be specific @ -[No] Did you speak to anyone other than the patient for history (EMS, parent, family, police, friend...)? What history was obtained from this source @ -[Patient's contributed history Did you review nursing and triage notes (agree or disagree)? Why? @ -[I reviewed and agree with nursing and triage notes] Were old charts reviewed (outside hosp., previous admission, EMS record, old EKG, old radiological studies, urgent care reports/EKG's, shelter records)? Report findings @ -[No old charts were reviewed] Differential Diagnosis (chest pain, altered mental status, abdominal pain women, abdominal pain men, vaginal bleeding, weakness, fever, dyspnea, syncope, headache, dizziness, GI bleed, back pain, seizure, CVA, palpatations, mental health, musculoskeletal)? @ -[Differential Weakness: Hypoglycemia, shock, sepsis, hyponatremia, anemia, infection, DE, ETOH, adverse medicine reaction, overdose, stroke, this is not meant to be an all-inclusive list. EKG interpreted by me (3pts min.). @ -[I interpreted as above] X-rays interpreted by me (1pt min.). @ -[I interpreted as above CT interpreted by me (1pt min.). @ -I interpreted as above U/S interpreted by me (1pt. min.). @ -[None done] What testing was considered but not performed or refused? (CT, X-rays, U/S, labs)? Why? @ -[None] What meds were considered but not given or refused? Why? @ -[None] Did you discuss the management of the patient with other professionals (professionals i.e. , PA, OPTOMETRIC ASSISTANT, lab, RT, psych nurse, delinquency prevention social worker, business account leader, teacher, custodial officer, case picker)? Give summary @ -[No] Was smoking cessation discussed for >3mins.? @ -[No] Was critical care preformed (if so, how long)? @ -[No] Were there social determinants of health that impacted care today? How? (Homelessness, low income, unemployed, alcoholism, drug addiction, transpor tation, low edu. Level, literacy, decrease access to med. care, long term, rehab)? @ -[No] Was there de-escalation of care discussed even if they declined (Discuss DNR or withdrawal of care, Hospice)? DNR status @ -[No] What co-morbidities impacted this encounter? (DM, HTN, Smoking, COPD, CAD, Cancer, CVA, ARF, Chemo, Hep., AIDS, mental health diagnosis, sleep apnea, morbid obesity)? @ -[Diabetes, hypertension. Was patient admitted / discharged? Hospital course, mention meds given and route, prescriptions, significant lab abnormalities, going to OR and other pertinent info. @ -[Patient is 79-year-old man here with generalized weakness and fatigue. History and physical exam are not suggestive of stroke, the workup consistent with some mild dehydration. The patient offered admission, but patient states she will take him home and will watch him closely, returning if he has no improvement or if there is any worsening of condition. She believes that the patient would be worse off in the hospital due to milieu affect. Undiagnosed new problem with uncertain prognosis? @ -[No] Drug Therapy requiring intensive monitoring for toxicity (Heparin, Nitro, Insulin, Cardizem)? @ -[No] Were any procedures done? @ -[No] Diagnosis/symptom? @ -[Acute generalized weakness Acute mild hyperglycemia Probable viral syndrome Acute, or Chronic, or Acute on Chronic? @ -[Acute Uncomplicated (without systemic symptoms) or Complicated (systemic symptoms)? @ -[Complicated by generalized weakness Side effects of treatment? @ -[No] Exacerbation, Progression, or Severe Exacerbation? @ -[No] Poses a threat to life or bodily function? How? (Chest pain, USA, DE, pneumonia, PE, COPD, DKA, ARF, appy, cholecystitis, CVA, Diverticulitis, Homicidal, Suicidal, threat to staff... and all critical care pts) @ -[Low risk, requires close follow-up All treatments are based on ideal body weight as in ED triage (Haim Guerra) - Lab Data Lab Results 08/29/24 08/29/24 08/29/24 Range/Units 21:29 21:29 21:29 WBC 11.7 H (3.8-10.6) k/uL RBC 4.28 L (4.30-5.90) m/uL Hgb 13.9 (13.0-17.5) gm/dL Hct 42.2 (39.0-53.0) % MCV 98.6 (80.0-100.0) fL MCH 32.4 (25.0-35.0) pg MCHC 32.8 (31.0-37.0) g/dL RDW 12.6 (11.5-15.5) % Plt Count 200 (150-450) k/uL MPV 7.5 Neutrophils % 86 % Lymphocytes % 6 % Monocytes % 5 % Eosinophils % 3 % Basophils % 0 % Neutrophils # 10.0 H (1.3-7.7) k/uL Lymphocytes # 0.7 L (1.0-4.8) k/uL Monocytes # 0.6 (0-1.0) k/uL Eosinophils # 0.4 (0-0.7) k/uL Basophils # 0.0 (0-0.2) k/uL PT 10.9 (10.0-12.5) sec INR 1.0 (<1.2) APTT 22.8 (22.0-30.0) sec Sodium 134 L (137-145) mmol/L Potassium 4.8 (3.5-5.1) mmol/L Chloride 105 (98-107) mmol/L Carbon Dioxide 21 L (22-30) mmol/L Anion Gap 8 mmol/L BUN 32 H (9-20) mg/dL Creatinine 0.93 (0.66-1.25) mg/dL Est GFR (CKD-EPI)AfAm >90 (>60 ml/min/1.73 sqM) Est GFR (CKD-EPI)NonAf 79 (>60 ml/min/1.73 sqM) Glucose 198 H (74-99) mg/dL POC Glucose (mg/dL) (70-110) mg/dL POC Glu Manager Non Profit ID Plasma Lactic Acid Evert (0.7-2.0) mmol/L Calcium 9.0 (8.4-10.2) mg/dL Magnesium 1.7 (1.6-2.3) mg/dL Total Bilirubin 0.8 (0.2-1.3) mg/dL AST 29 (17-59) U/L ALT 29 (4-49) U/L Alkaline Phosphatase 23 L (38-126) U/L Troponin I (0.000-0.034) ng/mL NT-Pro-B Natriuret Pep 277 pg/mL Total Protein 6.7 (6.3-8.2) g/dL Albumin 4.4 (3.5-5.0) g/dL Urine Color Urine Appearance (Clear) Urine pH (5.0-8.0) Ur Specific [place] (1.001-1.035) Urine Protein (Negative) Urine Glucose (UA) (Negative) Urine Ketones (Negative) Urine Blood (Negative) Urine Nitrite (Negative) Urine Bilirubin (Negative) Urine Urobilinogen (<2.0) mg/dL Ur Leukocyte Esterase (Negative) Urine RBC (0-5) /hpf Urine WBC (0-5) /hpf Ur Squamous Epith Cells (0-4) /hpf Hyaline Casts (0-2) /lpf Urine Mucus (None) /hpf Influenza Type A (PCR) (Not Detectd) Influenza Type B (PCR) (Not Detectd) RSV (PCR) (Not Detectd) SARS-CoV-2 (PCR) (Not Detectd) 08/29/24 08/29/24 08/29/24 Range/Units 21:29 21:29 22:09 WBC (3.8-10.6) k/uL RBC (4.30-5.90) m/uL Hgb (13.0-17.5) gm/dL Hct (39.0-53.0) % MCV (80.0-100.0) fL MCH (25.0-35.0) pg MCHC (31.0-37.0) g/dL RDW (11.5-15.5) % Plt Count (150-450) k/uL MPV Neutrophils % % Lymphocytes % % Monocytes % % Eosinophils % % Basophils % % Neutrophils # (1.3-7.7) k/uL Lymphocytes # (1.0-4.8) k/uL Monocytes # (0-1.0) k/uL Eosinophils # (0-0.7) k/uL Basophils # (0-0.2) k/uL PT (10.0-12.5) sec INR (<1.2) APTT (22.0-30.0) sec Sodium (137-145) mmol/L Potassium (3.5-5.1) mmol/L Chloride (98-107) mmol/L Carbon Dioxide (22-30) mmol/L Anion Gap mmol/L BUN (9-20) mg/dL Creatinine (0.66-1.25) mg/dL Est GFR (CKD-EPI)AfAm (>60 ml/min/1.73 sqM) Est GFR (CKD-EPI)NonAf (>60 ml/min/1.73 sqM) Glucose (74-99) mg/dL POC Glucose (mg/dL) (70-110) mg/dL POC Glu Manager Non Profit ID Plasma Lactic Acid Evert 1.2 (0.7-2.0) mmol/L Calcium (8.4-10.2) mg/dL Magnesium (1.6-2.3) mg/dL Total Bilirubin (0.2-1.3) mg/dL AST (17-59) U/L ALT (4-49) U/L Alkaline Phosphatase (38-126) U/L Troponin I <0.012 (0.000-0.034) ng/mL NT-Pro-B Natriuret Pep pg/mL Total Protein (6.3-8.2) g/dL Albumin (3.5-5.0) g/dL Urine Color Urine Appearance (Clear) Urine pH (5.0-8.0) Ur Specific [place] (1.001-1.035) Urine Protein (Negative) Urine Glucose (UA) (Negative) Urine Ketones (Negative) Urine Blood (Negative) Urine Nitrite (Negative) Urine Bilirubin (Negative) Urine Urobilinogen (<2.0) mg/dL Ur Leukocyte Esterase (Negative) Urine RBC (0-5) /hpf Urine WBC (0-5) /hpf Ur Squamous Epith Cells (0-4) /hpf Hyaline Casts (0-2) /lpf Urine Mucus (None) /hpf Influenza Type A (PCR) Not Detected (Not Detectd) Influenza Type B (PCR) Not Detected (Not Detectd) RSV (PCR) Not Detected (Not Detectd) SARS-CoV-2 (PCR) Not Detected (Not Detectd) 08/29/24 08/30/24 Range/Units 22:10 01:42 WBC (3.8-10.6) k/uL RBC (4.30-5.90) m/uL Hgb (13.0-17.5) gm/dL Hct (39.0-53.0) % MCV (80.0-100.0) fL MCH (25.0-35.0) pg MCHC (31.0-37.0) g/dL RDW (11.5-15.5) % Plt Count (150-450) k/uL MPV Neutrophils % % Lymphocytes % % Monocytes % % Eosinophils % % Basophils % % Neutrophils # (1.3-7.7) k/uL Lymphocytes # (1.0-4.8) k/uL Monocytes # (0-1.0) k/uL Eosinophils # (0-0.7) k/uL Basophils # (0-0.2) k/uL PT (10.0-12.5) sec INR (<1.2) APTT (22.0-30.0) sec Sodium (137-145) mmol/L Potassium (3.5-5.1) mmol/L Chloride (98-107) mmol/L Carbon Dioxide (22-30) mmol/L Anion Gap mmol/L BUN (9-20) mg/dL Creatinine (0.66-1.25) mg/dL Est GFR (CKD-EPI)AfAm (>60 ml/min/1.73 sqM) Est GFR (CKD-EPI)NonAf (>60 ml/min/1.73 sqM) Glucose (74-99) mg/dL POC Glucose (mg/dL) 158 H (70-110) mg/dL POC Glu Manager Non Profit ID [place] Plasma Lactic Acid Evert (0.7-2.0) mmol/L Calcium (8.4-10.2) mg/dL Magnesium (1.6-2.3) mg/dL Total Bilirubin (0.2-1.3) mg/dL AST (17-59) U/L ALT (4-49) U/L Alkaline Phosphatase (38-126) U/L Troponin I (0.000-0.034) ng/mL NT-Pro-B Natriuret Pep pg/mL Total Protein (6.3-8.2) g/dL Albumin (3.5-5.0) g/dL Urine Color Yellow Urine Appearance Clear (Clear) Urine pH 5.5 (5.0-8.0) Ur Specific [place] 1.019 (1.001-1.035) Urine Protein 1+ H (Negative) Urine Glucose (UA) Negative (Negative) Urine Ketones Negative (Negative) Urine Blood Negative (Negative) Urine Nitrite Negative (Negative) Urine Bilirubin Negative (Negative) Urine Urobilinogen <2.0 (<2.0) mg/dL Ur Leukocyte Esterase Small H (Negative) Urine RBC <1 (0-5) /hpf Urine WBC 1 (0-5) /hpf Ur Squamous Epith Cells 1 (0-4) /hpf Hyaline Casts 1 (0-2) /lpf Urine Mucus Rare H (None) /hpf Influenza Type A (PCR) (Not Detectd) Influenza Type B (PCR) (Not Detectd) RSV (PCR) (Not Detectd) SARS-CoV-2 (PCR) (Not Detectd) Disposition <Humaira Smalls - Last Filed: 08/29/24 21:17> Is patient prescribed a controlled substance at d/c from ED?: No <Haim Guerra - Last Filed: 09/23/24 06:36> Clinical Impression: Weakness, Viral syndrome Disposition: HOME SELF-CARE Condition: Good Instructions (If sedation given, give patient instructions): Viral Syndrome ( ED) Referrals: Edwardo Feldman DO [Primary Care Provider] - 1-2 days
[2024-08-29 21:39] LABS: Basophils % (A) 0 %; Eosinophils # (A) 0.4 k/uL (0-0.7); Eosinophils % (A) 3 %; HCT 42.2 % (39.0-53.0); HGB 13.9 gm/dL (13.0-17.5); Lymphocytes # (A) 0.7 k/uL (1.0-4.8); Lymphocytes % (A) 6 %; MCH 32.4 pg (25.0-35.0); MCHC 32.8 g/dL (31.0-37.0); MCV 98.6 fL (80.0-100.0); Mean Platelet Volume 7.5; Monocytes # (A) 0.6 k/uL (0-1.0); Monocytes % (A) 5 %; Neutrophils % (A) 86 %; Platelet Count 200 k/uL (150-450); RBC 4.28 m/uL (4.30-5.90); RDW 12.6 % (11.5-15.5); WBC 11.7 k/uL (3.8-10.6)
--- NOTE | 2024-08-29 21:43 | CT ---
EXAMINATION TYPE: CT brain wo con DATE OF EXAM: 08/29/2024 9:39 PM COMPARISON: 11/22/2018 CLINICAL INDICATION: Male, 79 years old with history of dizziness, Generalized weakness and dizziness for the past few days. TECHNIQUE: CT of the brain is performed utilizing 3 mm thick sections through the posterior fossa and 3 mm thick sections through the remaining calvarium. Study is performed within 24 hours of arrival to the hospital. Contrast used: mL of , (none if empty) CT DLP: 1184.3 mGycm, Automated exposure control for dose reduction was used. FINDINGS: No abnormal hyperdensity is present to suggest an acute intracranial hemorrhage. No mass lesion is evident. No acute infarcts are evident. Ventricles and sulci are appropriate for the patient age. Paranasal sinuses and mastoid air cells within the [id number] are clear. IMPRESSION: 1. No acute intracranial process. Follow up MRI can be performed as clinically indicated. [facility], , 08/29/2024 9:41 PM
[2024-08-29 21:50] LABS: Partial Thromboplastin Time 22.8 sec (22.0-30.0); Prothrombin Time 10.9 sec (10.0-12.5)
[2024-08-29 21:51] LABS: ALT 29 U/L (4-49); African American GFR (CKD) >90 (>60 ml/min/1.73 sqM); Albumin 4.4 g/dL (3.5-5.0); Anion Gap 8 mmol/L; Blood Urea Nitrogen 32 mg/dL (9-20); Carbon Dioxide 21 mmol/L (22-30); Chloride 105 mmol/L (98-107); Glucose 198 mg/dL (74-99); Non-African American GFR(CKD) 79 (>60 ml/min/1.73 sqM); Sodium 134 mmol/L (137-145); Total Bilirubin 0.8 mg/dL (0.2-1.3); Total Protein 6.7 g/dL (6.3-8.2)
[2024-08-29 21:57] LABS: AST 29 U/L (17-59); Alkaline Phosphatase 23 U/L (38-126); Magnesium 1.7 mg/dL (1.6-2.3); Potassium 4.8 mmol/L (3.5-5.1)
[2024-08-29 21:59] LABS: NT-Pro-B-Type Natriuretic Pept 277 pg/mL
[2024-08-29 22:30] LABS: Appearance,Urine Clear (Clear); Bilirubin,Urine Negative (Negative); Blood,Urine Negative (Negative); Color,Urine Yellow; Glucose,Urine (UA) Negative (Negative); Hyaline Casts,Urine 1 /lpf (0-2); Ketones,Urine Negative (Negative); Leukocyte Esterase,Urine Small (Negative); Mucus,Urine Rare /hpf; Nitrite,Urine Negative (Negative); PH, Urine 5.5 (5.0-8.0); Protein,Urine 1+ (Negative); RBC,Urine <1 /hpf (0-5); Specific Gravity,Urine 1.019 (1.001-1.035); Squamous Epithelial Cell,Urine 1 /hpf (0-4); Urobilinogen,Urine <2.0 mg/dL (<2.0); WBC,Urine 1 /hpf (0-5)
[2024-08-29 23:01] LABS: Influenza A Not Detected (Not Detectd); Influenza B Not Detected (Not Detectd); RSV Not Detected (Not Detectd)
--- NOTE | 2024-08-30 | XR ---
EXAM: XR Chest, 2 Views CLINICAL HISTORY: ITS.REASON XR Reason: Weakness TECHNIQUE: Frontal and lateral views of the chest. COMPARISON: No relevant prior studies available. FINDINGS: Lungs: Unremarkable. No consolidation. Pleural space: Unremarkable. No pneumothorax. Heart: Unremarkable. No cardiomegaly. Mediastinum: Unremarkable. Bones/joints: Unremarkable. IMPRESSION: No consolidation.
[2024-08-30] MEDS: SODIUM CHLORIDE 0.9% 500 ML 500 ML IV STA (00:28)
[2024-08-30 01:15] VITALS: PULSE 70; RESP 18
[2024-08-30] MEDS: SODIUM CHLORIDE 0.9% 1,000 ML IV ONE (01:38)
[2024-08-30 01:44] VITALS: BP 130/61
[2024-08-30 01:44] LABS: Glucose,Whole Blood 158 mg/dL (70-110)
== END 2024-08-30 02:20 | disposition home or self-care (01) ==
LOC: EC 20:07
DX: R53.1 Weakness (principal); B34.9 Viral infection, unspecified; Z88.0 Allergy status to penicillin
CPT/HCPCS: 36415; 70450; 71046; 80053; 81001; 83605; 83735; 83880; 84484; 85025; 85610; 85730; 87636; 93005; 96360; 96361; 99285